=== PATIENT | male | born 1950 | race Caucasian/White ===

== ENCOUNTER 2017-07-30 09:30 | Inpatient (IN) | payer MEDICARE, OTHER ==
[~2017-07-30] VITALS: Ht 177.8 cm; Wt 106.5 kg
[2017-07-30] VITALS (9 sets, daily range): BP systolic 145–186; BP diastolic 66–90; PULSE 50–66; RESP 12–24; TEMP 98–98.3; O2SAT 94–99
[2017-07-30] MEDS ORDERED: APIX2.5T PO (09:45)
[2017-07-30] MEDS ORDERED: COEN1CAP PO (09:45)
[2017-07-30] MEDS ORDERED: ROSU1TAB6 PO (09:45)
[2017-07-30] MEDS ORDERED: LOSA25TA PO (09:45)
[2017-07-30] MEDS ORDERED: GLUC100013 PO (09:45)
--- NOTE | 2017-07-30 09:54 | PD ---
HPI Chief Complaint: Cardiac Complaint Time Seen by Provider: 09:50 Travel History International Travel<30 days: No Contact w/Intl Traveler<30days: No Traveled to known affect area: No History of Present Illness HPI 66-year-old man, presents emerged from complaining of tightness in his chest. Over the past couple weeks she has had worsening shortness of breath or dyspnea on exertion. Initially developed tightness in his chest. Tightness is worse this morning. He is a history of lymphoma several years ago. During his lymphoma treatment he developed a DVT, and then developed a second PE. He has an IVC filter and and is currently on Eliquis. Is been taking his medication regularly. Is no history of heart disease. He otherwise had been feeling 1 healthy prior to this. No recent illnesses or injuries. No other complaints. History Past Medical History Narrative Medical DVT/PE History of lymphoma Hyperlipidemia Hypertension Social History Alcohol Use: Yes Tobacco Use: No Allergies-Medications (Allergen,Severity, Reaction): Coded Allergies: No Known Allergies (Unverified , 07/30/17) Reported Meds & Prescriptions Reported Meds & Active Scripts Active Reported Co Q-10 (Coenzyme Q10 (Ubidecarenone)) 100 Mg Cap 100 Mg PO DAILY Glucosamine (Glucosamine Sulfate) 1,000 Mg Cap 2,000 Mg PO DAILY Losartan (Losartan Potassium) 25 Mg Tab 5 Mg PO DAILY Rosuvastatin (Rosuvastatin Calcium) 10 Mg Tab 10 Mg PO HS Eliquis (Apixaban) 2.5 Mg Tab 2.5 Mg PO BID Review of Systems Except as stated in HPI: all other systems reviewed are Neg Physical Exam Narrative GENERAL: Well-appearing 58-year-old man, no acute distress. SKIN: Focused skin assessment warm/dry. HEAD: Atraumatic. Normocephalic. EYES: Pupils equal and round. No scleral icterus. No injection or drainage. ENT: No nasal bleeding or discharge. Mucous membranes pink and moist. NECK: Trachea midline. No JVD. CARDIOVASCULAR: Regular rate and rhythm. No murmur appreciated. RESPIRATORY: No accessory muscle use. Clear to auscultation. Breath sounds equal bilaterally. GASTROINTESTINAL: Abdomen soft, non-tender, nondistended. Hepatic and splenic margins not palpable. MUSCULOSKELETAL: No obvious deformities. No clubbing. No cyanosis. No edema. NEUROLOGICAL: Awake and alert. No obvious cranial nerve deficits. Motor grossly within normal limits. Normal speech. PSYCHIATRIC: Appropriate mood and affect; insight and judgment normal. Data Data Last Documented VS Vital Signs Date Time Temp Pulse Resp B/P (MAP) Pulse Ox O2 Delivery O2 Flow Rate FiO2 07/30/17 09:39 98.3 65 19 186/78 (114) 94 Orders Orders Electrocardiogram (07/30/17 09:48) Complete Blood Count With Diff (07/30/17 09:48) Comprehensive Metabolic Panel (07/30/17 09:48) D-Dimer (07/30/17 09:48) Magnesium (Mg) (07/30/17 09:48) Prothrombin Time / Inr (Pt) (07/30/17:48) Act Partial Throm Time (Ptt) (07/30/17 09:48) Troponin I (07/30/17 09:48) Ecg Monitoring (07/30/17 09:48) Iv Access Insert/Monitor (07/30/17 09:48) Oximetry (07/30/17 09:48) Oxygen Administration (07/30/17 09:48) Sodium Chloride 0.9% Flush (Ns Flush) (07/30/17 10:00) Chest, Pa & Lat (07/30/17 09:48) Aspirin Chew (Aspirin Chew) (07/30/17 10:00) MDM Medical Decision Making Medical Screen Exam Complete: Yes Emergency Medical Condition: Yes Differential Diagnosis DVT, PE, ACS, chest wall pain, other Narrative Course Medical decision making 66-year-old man, distant exertion with chest tightness, suspicious for ACS, history of DVT PE. Will check labs including d-dimer, check EKG chest x-ray aspirin, recommend admission to the chest pain center for further evaluation. Patient seen in triage, will be taken to the back for further evaluation. Les Salmeron MD Jul 30, 2017 09:54
[2017-07-30] MEDS ORDERED: ASPIRIN 81 MG CHEW TAB CHEW SCH (10:00)
[2017-07-30] MEDS ORDERED: SODIUM CHLORIDE 0.9% FLUSH 10 ML FLUSH IVF PRN (10:00)
[2017-07-30 10:42] LABS: AUTOMATED NEUTROPHIL # 3.5 TH/MM3 (1.8-7.7); BASOPHIL # 0.1 TH/MM3 (0-0.2); EOSINOPHIL # 0.1 TH/MM3 (0-0.4); EOSINOPHIL % 1.7 % (0.0-4.0); HEMATOCRIT 39.3 % (39.0-51.0); HEMOGLOBIN 13.6 GM/DL (13.0-17.0); LYMPH % 20.7 % (9.0-44.0); LYMPHOCYTE # 1.1 TH/MM3 (1.0-4.8); MEAN CELL VOLUME 88.4 FL (80.0-100.0); MEAN CORPUSCULAR HEMOGLOBIN 30.6 PG (27.0-34.0); MEAN CORPUSCULAR HGB CONC 34.6 % (32.0-36.0); MEAN PLATELET VOLUME 8.2 FL (7.0-11.0); MONO % 10.6 % (0.0-8.0); MONOCYTE # 0.6 TH/MM3 (0-0.9); PLATELET COUNT 139 TH/MM3 (150-450); RED BLOOD COUNT 4.45 MIL/MM3 (4.50-5.90); RED CELL DISTRIBUTION WIDTH 14.1 % (11.6-17.2); WHITE BLOOD COUNT 5.3 TH/MM3 (4.0-11.0)
--- NOTE | 2017-07-30 10:50 | RADRPT ---
EXAM DATE/TIME: 07/30/2017 10:34 [facility] COMPARISON: No previous studies available for comparison. INDICATIONS : Midsternal chest pains, MEDICAL HISTORY : Lymphoma. SURGICAL HISTORY : None. ENCOUNTER: Initial ACUITY: 1 day PAIN SCORE: 5/10 LOCATION: Bilateral chest FINDINGS: PA and lateral views of the chest demonstrate the lungs to be symmetrically aerated without evidence of mass, infiltrate or effusion. The cardiomediastinal contours are unremarkable. Osseous structure s are intact. CONCLUSION: No acute disease. Rodo Hansen MD on July 30, 2017 at 10:48 Board Certified Radiologist. This report was verified electronically.
[2017-07-30 10:53] LABS: D-DIMER 0.32 MG/L FEU (0.00-0.50); INTERNATIONAL NORMALIZED RATIO 1.1 RATIO; PROTHROMBIN TIME - PATIENT 10.7 SEC (9.8-11.6)
[2017-07-30 11:02] LABS: ALBUMIN 4.1 GM/DL (3.4-5.0); AST (GOT) 35 U/L (15-37); BICARBONATE 22.5 MEQ/L (21.0-32.0); BLOOD UREA NITROGEN 16 MG/DL (7-18); CALCIUM 9.1 MG/DL (8.5-10.1); CHLORIDE 109 MEQ/L (98-107); CREATININE 0.91 MG/DL (0.60-1.30); GLOMERULAR FILTRATION RATE 83 ML/MIN (>89); GLUCOSE,RANDOM 115 MG/DL (74-106); MAGNESIUM 2.2 MG/DL (1.5-2.5); SODIUM (NA) 139 MEQ/L (136-145)
[2017-07-30 11:10] LABS: ALKALINE PHOSPHATASE 92 U/L (45-117); ALT (GPT) 52 U/L (12-78); TOTAL BILIRUBIN ADULT 0.6 MG/DL (0.2-1.0); TOTAL PROTEIN 7.7 GM/DL (6.4-8.2); TROPONIN I 0.11 NG/ML (0.02-0.05)
[2017-07-30] MEDS ORDERED: HEPARIN-D5W 25,000 U/250 ML 250 ML IV PRN (11:45)
[2017-07-30] MEDS ORDERED: HEPARIN SODIUM - IV 10,000 UNITS/10 ML VIAL IV ONE (11:45)
--- NOTE | 2017-07-30 12:01 | PD ---
Physical Exam Date Seen by Provider: Jul 30, 2017 Time Seen by Provider: 11:58 Narrative 66-year-old male came to the emergency room with his with progressive chest pain and shortness of breath on exertion. Patient says this has been going on for past 2 weeks or so. At first this evolved doing gardening work which brought on the pain and shortness of breath. Today it was just doing normal house chores which she has done routinely for a very long time without any problems. He describes the pain as a pressure/tightness on the left side of his chest without radiation. It was more intense today as well. Currently he is chest pain-free. Patient takes Eliquis for history of DVT and PE. He was seen in the waiting room and workup initiated in the waiting room. Blood work is back and shows elevation of the troponin. Patient is already on blood thinners and hence has not been started on any other the present time. Vital signs are stable. He needs to be admitted and I discussed this with him. Patient understands. Awaiting for the hospitalist to call back. Data Data Last Documented VS Vital Signs Date Time Temp Pulse Resp B/P (MAP) Pulse Ox O2 Delivery O2 Flow Rate FiO2 07/30/17 11:57 54 14 176/85 (115) 97 Room Air 07/30/17 09:39 98.3 Orders Orders Electrocardiogram (07/30/17 09:48) Complete Blood Count With Diff (07/30/17 09:48) Comprehensive Metabolic Panel (07/30/17 09:48) D-Dimer (07/30/17 09:48) Magnesium (Mg) (07/30/17 09:48) Prothrombin Time / Inr (Pt) (07/30/17 09:48) Act Partial Throm Time (Ptt) (07/30/17 09:48) Troponin I (07/30/17 09:48) Ecg Monitoring (07/30/17 09:48) Iv Access Insert/Monitor (07/30/17 09:48) Oximetry (07/30/17 09:48) Oxygen Administration (07/30/17 09:48) Sodium Chloride 0.9% Flush (Ns Flush) (07/30/17 10:00) Chest, Pa & Lat (07/30/17 09:48) Aspirin Chew (Aspirin Chew) (07/30/17 10:00) Heparin Inj (Heparin Inj) (07/30/17 11:45) Heparin Inj (Heparin Inj) (07/30/17 17:45) Heparin Inj (Heparin Inj) (07/30/17 17:45) Admit Order (Ed Use Only) (07/30/17 12:06) Labs Laboratory Tests Test 07/30/17 09:50 07/30/17 09:54 Prothrombin Time 10.7 SEC Prothromb Time International Ratio 1.1 RATIO Activated Partial Thromboplast Time 26.6 SEC D-Dimer Quantitative (PE/DVT) 0.32 MG/L FEU White Blood Count 5.3 TH/MM3 Red Blood Count 4.45 MIL/MM3 Hemoglobin 13.6 GM/DL Hematocrit 39.3 % Mean Corpuscular Volume 88.4 FL Mean Corpuscular Hemoglobin 30.6 PG Mean Corpuscular Hemoglobin Concent 34.6 % Red Cell Distribution Width 14.1 % Platelet Count 139 TH/MM3 Mean Platelet Volume 8.2 FL Neutrophils (%) (Auto) 66.0 % Lymphocytes (%) (Auto) 20.7 % Monocytes (%) (Auto) 10.6 % Eosinophils (%) (Auto) 1.7 % Basophils (%) (Auto) 1.0 % Neutrophils # (Auto) 3.5 TH/MM3 Lymphocytes # (Auto) 1.1 TH/MM3 Monocytes # (Auto) 0.6 TH/MM3 Eosinophils # (Auto) 0.1 TH/MM3 Basophils # (Auto) 0.1 TH/MM3 CBC Comment DIFF FINAL Differential Comment Blood Urea Nitrogen 16 MG/DL Creatinine 0.91 MG/DL Random Glucose 115 MG/DL Total Protein 7.7 GM/DL Albumin 4.1 GM/DL Calcium Level 9.1 MG/DL Magnesium Level 2.2 MG/DL Alkaline Phosphatase 92 U/L Aspartate Amino Transf (AST/SGOT) 35 U/L Alanine Aminotransferase (ALT/SGPT) 52 U/L Total Bilirubin 0.6 MG/DL Sodium Level 139 MEQ/L Potassium Level 4.5 MEQ/L Chloride Level 109 MEQ/L Carbon Dioxide Level 22.5 MEQ/L Anion Gap 8 MEQ/L Estimat Glomerular Filtration Rate 83 ML/MIN Troponin I 0.11 NG/ML [facility] Supervised Visit with JHONATHAN: No Interpretation(s) Twelve-lead EKG was reviewed by me. Normal sinus rhythm, normal axis, nonspecific ST-T wave changes. Heart rate of 74 bpm. Diagnosis Primary Impression: Non-STEMI (non-ST elevated myocardial infarction) Admitting Information Admitting Physician Requests: it Zoey Parr MD Jul 30, 2017 12:01
[2017-07-30] MEDS ORDERED: MORPHINE SULFATE 4 MG/ML INJ IV PUSH PRN (12:30)
[2017-07-30] MEDS ORDERED: ACETAMINOPHEN 325 MG TAB PO PRN (12:30)
[2017-07-30] MEDS ORDERED: DOCUSATE SODIUM 100 MG CAP PO PRN (12:30)
[2017-07-30] MEDS ORDERED: NITROGLYCERIN 0.4 MG SL 25 TABS/BTL SL PRN (12:30)
[2017-07-30 13:14] LABS: CHOLESTEROL/ HDL RATIO 4.13 RATIO
[2017-07-30] MEDS: METOPROLOL TARTRATE 25 MG TAB PO SCH (15:42)
[2017-07-30 15:50] LABS: TROPONIN I 0.15 NG/ML (0.02-0.05)
--- NOTE | 2017-07-30 16:47 | EKG ---
Date Performed: 07/30/2017 Time Performed: 09:58:16 PTAGE: 66 years EKG: Sinus rhythm NORMAL ECG NO PREVIOUS TRACING DOCTOR: Matt Anthony Interpretating Date/Time 07/30/2017 16:44:13
[2017-07-30] MEDS ORDERED: HEPARIN SODIUM - IV 10,000 UNITS/10 ML VIAL IV PRN ×2 (17:45)
--- NOTE | 2017-07-30 20:29 | HHI.HP ---
[facility] Primary Care Physician Yunior Abdul MD Admission Diagnosis non-STEMI Diagnoses: Chief Complaint: Chest pain Travel History International Travel<30 Days: No Contact w/Intl Traveler <30 Da: No Traveled to Known Affected Are: No History of Present Illness 66 years old male with past medical history of hypertension hyperlipidemia DVT PE 10 years ago and non-Hodgkin lymphoma presented to the ED with chest pain started yesterday and got worse and today 4 out of 10 squeezing nature no transfer no short of breath dizziness or diaphoresis it last for 4 minutes patient did not take nitroglycerin, in ED he was started on aspirin he was found to have elevated troponin 0.11 EKG showed normal sinus rhythm normal axis no ST changes heart rate 74. Patient currently having no chest pain, second set of cardiac enzyme increased to 0.15, patient took his elliquis in a.m. we' ll hold on heparin drip and will give it after 12 hours, cardiology consulted I was told the plan for heart catheter in a.m. Other than chest anal patient denied any other complaint, he denied orthopnea PND or leg swelling Review of Systems All systems reviewed and was positive for what is mentioned in history of present illness otherwise negative Past Family Social History Past Medical History Hypertension Hyperlipidemia History of DVT PE 10 years ago Non-Hodgkin lymphoma status post chemotherapy Past Surgical History IVC filter Cataract Melanoma excision of the nose IP port Allergies: Coded Allergies: No Known Allergies (Unverified , 07/30/17) Family History Mother had CHF and A. fib Social History Quit smoking 40 years ago he drinks alcohol daily including beer no drug abuse Physical Exam Vital Signs Vital Signs Date Time Temp Pulse Resp B/P (MAP) Pulse Ox O2 Delivery O2 Flow Rate FiO2 07/30/17 20:13 64 17 183/84 (117) 95 07/30/17 14:45 07/30/17 14:29 98.0 56 16 165/90 (115) 96 07/30/17 14:00 54 24 145/68 (93) 96 Room Air 07/30/17 13:30 52 16 145/66 (92) 96 Room Air 07/30/17 13:00 50 12 170/78 (108) 96 Room Air 07/30/17 11:57 54 14 176/85 (115) 97 Room Air 07/30/17 09:56 99 07/30/17 09:56 99 07/30/17 09:39 98.3 65 19 186/78 (114) 94 07/30/17 09:37 98.3 66 16 186/78 (114) 95 Physical Exam GENERAL: This is a well-nourished, well-developed patient, in no apparent distress. SKIN: No rashes, warm and dry HEAD: Atraumatic. Normocephalic. EYES: Pupils equal round and reactive. Extraocular motions intact. No scleral icterus. ENT: Nose without bleeding, or drainage, Airway patent. NECK: Trachea midline. Supple CARDIOVASCULAR: Regular rate and rhythm without murmurs, gallops, or rubs. RESPIRATORY: Fair air entry bilaterally. No wheezes, rales, or rhonchi. GASTROINTESTINAL: Abdomen soft, non-tender, nondistended. Positive bowel sounds MUSCULOSKELETAL: Extremities without clubbing, cyanosis, or edema. Pedal pulses appreciated NEUROLOGICAL: Awake and alert. Moves all extremity. Normal speech.no focal neurological deficit Laboratory Laboratory Tests Test 07/30/17 09:50 07/30/17 09:54 07/30/17 12:42 07/30/17 14:43 Prothrombin Time 10.7 Prothromb Time International Ratio 1.1 Activated Partial Thromboplast Time 26.6 25.7 D-Dimer Quantitative (PE/DVT) 0.32 White Blood Count 5.3 Red Blood Count 4.45 Hemoglobin 13.6 Hematocrit 39.3 Mean Corpuscular Volume 88.4 Mean Corpuscular Hemoglobin 30.6 Mean Corpuscular Hemoglobin Concent 34.6 Red Cell Distribution Width 14.1 Platelet Count 139 Mean Platelet Volume 8.2 Neutrophils (%) (Auto) 66.0 Lymphocytes (%) (Auto) 20.7 Monocytes (%) (Auto) 10.6 Eosinophils (%) (Auto) 1.7 Basophils (%) (Auto) 1.0 Neutrophils # (Auto) 3.5 Lymphocytes # (Auto) 1.1 Monocytes # (Auto) 0.6 Eosinophils # (Auto) 0.1 Basophils # (Auto) 0.1 CBC Comment DIFF FINAL Differential Comment Blood Urea Nitrogen 16 Creatinine 0.91 Random Glucose 115 Total Protein 7.7 Albumin 4.1 Calcium Level 9.1 Magnesium Level 2.2 Alkaline Phosphatase 92 Aspartate Amino Transf (AST/SGOT) 35 Alanine Aminotransferase (ALT/SGPT) 52 Total Bilirubin 0.6 Sodium Level 139 Potassium Level 4.5 Chloride Level 109 Carbon Dioxide Level 22.5 Anion Gap 8 Estimat Glomerular Filtration Rate 83 Troponin I 0.11 0.15 Triglycerides Level 85 Cholesterol Level 157 LDL Cholesterol 102 HDL Cholesterol 38.0 Cholesterol/HDL Ratio 4.13 Total Creatine Kinase 133 Creatine Kinase MB 3.0 Result Diagram: 07/30/1754 07/30/17953 Imaging Last Impressions Chest X-Ray 07/30/17947 Signed Impressions: Service Date/Time: Sunday, July 30, 2017 10:34 - CONCLUSION: No acute disease. MD Caty Talavera VTE Risk Assessment Caty VTE Risk Assessment: Mod/High Risk (score >= 2) Caprini Risk Assessment Model Point Value = 1 Point Value = 2 Point Value = 3 Point Value = 5 Age 41-60 Minor surgery BMI > 25 kg/m2 Swollen legs Varicose veins or History of unexplained or recurrent spontaneous Oral contraceptives or hormone replacement Sepsis (< 1 month) Serious lung disease, including pneumonia (< 1 month) Abnormal pulmonary function Acute myocardial infarction Congestive heart failure (< 1 month) History of inflammatory bowel disease Medical patient at bed rest Age 61-74 Arthroscopic surgery Major open surgery (> 45 min) Laparoscopic surgery (> 45 min) Malignancy Confined to bed (> 72 hours) Immobilizing plaster cast Central venous access Age >= 75 History of VTE Family history of VTE Factor V Leiden Prothrombin [id number] Lupus anticoagulant Anticardiolipin antibodies Elevated serum homocysteine Heparin-induced thrombocytopenia Other congenital or acquired thrombophilia Stroke (< 1 month) Elective arthroplasty Hip, pelvis, or leg fracture Acute spinal cord injury (< 1 month) Prophylaxis Regimen Total Risk Factor Score Risk Level Prophylaxis Regimen 0-1 Low Early ambulation 2 Moderate Order ONE of the following: *Sequential Compression Device (SCD) *Heparin 5000 units SQ BID 3-4 Higher Order ONE of the following medications: *Heparin 5000 units SQ TID *Enoxaparin/Lovenox 40 mg SQ daily (WT < 150 kg, CrCl > 30 mL/min) *Enoxaparin/Lovenox 30 mg SQ daily (WT < 150 kg, CrCl > 10-29 mL/min) *Enoxaparin/Lovenox 30 mg SQ BID (WT < 150 kg, CrCl > 30 mL/min) AND/OR *Sequential Compression Device (SCD) 5 or more Highest Order ONE of the following medications: *Heparin 5000 units SQ TID (Preferred with Epidurals) *Enoxaparin/Lovenox 40 mg SQ daily (WT < 150 kg, CrCl > 30 mL/min) *Enoxaparin/Lovenox 30 mg SQ daily (WT < 150 kg, CrCl > 10-29 mL/min) *Enoxaparin/Lovenox 30 mg SQ BID (WT < 150 kg, CrCl > 30 mL/min) AND *Sequential Compression Device (SCD) Assessment and Plan Assessment and Plan 66 years old male with history of hypertension hyperlipidemia DVT and PE in the past came with Worsening chest anal short of breath rule out ACS Elevated troponin Hypertension uncontrolled blood pressure History of DVT and PE 10 years ago on elliquis Hyperlipidemia on rosuvastatin History of non-Hodgkin lymphoma in remission status post chemotherapy DVT prophylaxis patient on elliquis Plan: Admit to inpatient Aspirin, morphine, O2 Cycle cardiac enzymes first set 0.11, next set 0.15 Personally reviewed EKG Continue losartan and rosuvastatin Check FPL Vasotec for as needed blood pressure coverage I will hold on giving Lopressor due to heart rate in the 50s currently patient was given 1 dose 12.5 earlier today at admission Consult cardiology appreciated their help, patient was told land for heart catheter possibly tomorrow Heparin drip per protocol 12 hours after the time when patient took his Eliquis this morning so around (I discussed with the nurse and explained the reason for that) she will verify that and confirm it with cardiology Discussed Condition With Patient and ED physician Physician Certification 2 Midnight Certification Type: Admission for Inpatient Services Order for Inpatient Services The services are ordered in accordance with Medicare regulations or non- Medicare payer requirements, as applicable. In the case of services not specified as inpatient-only, they are appropriately provided as inpatient services in accordance with the 2-midnight benchmark. Estimated LOS (days): 2 days is the estimated time the patient will need to remain in the hospital, assuming treatment plan goals are met and no additional complications. Post-Hospital Plan: Not yet determined Randee Najera MD Jul 30, 2017 20:29
[2017-07-30] MEDS ORDERED: ENALAPRILAT 1.25 MG/ML VIAL IV PUSH PRN (20:30)
[2017-07-30] MEDS: ATORVASTATIN 20 MG TAB PO SCH (20:53)
[2017-07-30] MEDS ORDERED: HEPARIN SODIUM - IV 10,000 UNITS/10 ML VIAL IV PUSH PRN (22:00)
[2017-07-30] MEDS: HEPARIN 25,000 UNITS-D5W 250 ML - PREMIX IV PRN (22:32)
--- NOTE | 2017-07-30 23:24 | MB ---
cc: Patrick Briceno DO DATE: 07/30/2017 REASON FOR CONSULTATION: Chest pain, elevated troponin. HISTORY OF PRESENT ILLNESS: Leonardo Bowie is a pleasant 66-year-old male who presented to [facility] Emergency Room due to chest pain and shortness of breath. He has had this on and off over the past month or two and was supposed to see my partner, Dr. Morgan in the office within the next week or two. He states that the pain started getting worse and was 4/10 and squeezing in nature and his shortness of breath was more exacerbated with activity. Because of this, he decided he should come to the emergency room. He was found to have an elevated troponin. In seeing him, he is currently chest pain free without shortness of breath. PAST MEDICAL HISTORY: 1. Hypertension. 2. Hyperlipidemia. 3. History of deep vein thrombosis/pulmonary embolism. 4. Non-Hodgkin lymphoma, status post chemotherapy. PAST SURGICAL HISTORY: 1. Pete IVC filter placement. 2. Cataracts. 3. Melanoma excision of the nose. ALLERGIES: NO KNOWN DRUG ALLERGIES. MEDICATIONS: 1. Eliquis 2.5 mg b.i.d. 2. Crestor 10 mg every night. 3. Losartan 100 mg daily. FAMILY HISTORY: Mother had congestive heart failure and atrial fibrillation. SOCIAL HISTORY: The patient previously smoked but quit ____ years ago. He drinks beer daily, but does not binge drink. He denies drug abuse. REVIEW OF SYSTEMS: Fourteen systems were reviewed including osteopathic. Pertinent positives and negatives above, otherwise negative. PHYSICAL EXAMINATION: VITAL SIGNS: Temperature 98.0, heart rate 56, blood pressure 165/90, respirations 16, pulse oximetry 96% on room air. GENERAL: The patient appears well in no acute distress. Alert, awake and oriented x 3. HEENT: Extraocular muscles intact. Mucous membranes moist. NECK: Supple. No JVD at 45 degrees. No carotid bruits heard bilaterally. Carotid upstroke is brisk in nature. HEART: Regular rate and rhythm. Positive first and second heart sounds without any murmurs, gallops or rubs. LUNGS: Clear to auscultation bilaterally. No wheezes, rales or rhonchi. ABDOMEN: Soft, nontender, nondistended. No organomegaly noted. EXTREMITIES: Show no clubbing, cyanosis or edema. Femoral and distal pulses are intact bilaterally. NEUROLOGIC: No focal deficits. SKIN: Warm, dry and intact. OSTEOPATHIC: No kyphoscoliosis, lordosis or paraspinal tender points. LABORATORY DATA: Hemoglobin 13.6, hematocrit 39.3, platelets 139. Potassium 4.5, BUN 16, creatinine 0.91. Troponin 0.15. Electrocardiogram (07/30/2017 at 18:58) sinus bradycardia. No acute ST-T wave changes. ASSESSMENT AND PLAN: 1. Non-ST elevation myocardial infarction. 2. Chest pain and shortness of breath concerning for coronary insufficiency. 3. Hypertension. 4. History of deep vein thrombosis/pulmonary embolism on Eliquis with inferior vena cava filter placement. 5. Hyperlipidemia. 6. History of non-Hodgkin lymphoma in remission, status post chemotherapy. RECOMMENDATIONS: 1. Mr. Bowie presented with typical sounding angina and has an elevated troponin. Because of this he will be recommended cardiac catheterization. 2. As he took his Eliquis this morning I feel that it would be better to wait until the morning, so that he is 24 hours out from taking his Eliquis to decrease his bleeding risk. 3. He will be started on a heparin drip. 4. We will check a 2-D echo to look at his overall left ventricular function, cardiac structure and possible valvulopathies. 5. He will be n.p.o. after midnight for planned cardiac catheterization in the morning. 6. Risks, benefits and alternatives were explained to him and he consents to such. 7. Further recommendations will be made based on the hospital course. Thank you for allowing me to see Leonardo Bowie. If there are any questions, please do not hesitate to call. Patrick Briceno, DO VGP/rt , 11:00 PM , 11:23 PM
[2017-07-30 23:42] LABS: TROPONIN I 0.14 NG/ML (0.02-0.05)
[2017-07-31] VITALS (9 sets, daily range): BP systolic 104–140; BP diastolic 54–76; PULSE 47–68; RESP 17–18; TEMP 96.8–98.2; O2SAT 93–95
[2017-07-31] MEDS ORDERED: INSULIN HUMAN REGULAR 1,000 UNITS/10 ML VIAL SQ PRN (01:45)
[2017-07-31] MEDS ORDERED: CHLORHEXIDINE GLUCONATE 2 % 1 PACK (2 CLOTHS) TOPICAL PRN (01:45)
[2017-07-31] MEDS ORDERED: METOPROLOL TARTRATE 25 MG TAB PO PRN (01:45)
[2017-07-31] MEDS ORDERED: POVIDONE IODINE 5% (ANTISEPSIS KIT) 4 APPLICATIONS EACH NARE PRN (01:45)
[2017-07-31] MEDS ORDERED: LACTATED RINGER'S 1000 ML IV PRN (01:45)
[2017-07-31] MEDS ORDERED: SODIUM CHLORID 0.9% 500 ML IV PRN (01:45)
[2017-07-31 05:19] LABS: BICARBONATE 27.6 MEQ/L (21.0-32.0); CALCIUM 8.5 MG/DL (8.5-10.1); CREATININE 0.99 MG/DL (0.60-1.30)
[2017-07-31 05:23] LABS: TROPONIN I 0.12 NG/ML (0.02-0.05)
[2017-07-31] MEDS: LOSARTAN 50 MG TAB PO SCH (08:19)
[2017-07-31] MEDS ORDERED: ASPIRIN EC 325 MG TABEC PO SCH (09:00)
--- NOTE | 2017-07-31 09:12 | HHI.PR ---
Subjective Remarks F/U MO. Doing ok no complaints denies chest pain and shortness of breath. Discussed with patient and , risk factor modification as well as risks of bleeding with anticoagulation and antiplatelet therapy. Discussed with RN Objective Vitals Vital Signs Date Time Temp Pulse Resp B/P (MAP) Pulse Ox O2 Delivery O2 Flow Rate FiO2 07/31/17 08:19 96.8 68 18 121/67 (85) 94 07/31/17 03:45 97.9 62 18 132/67 (88) 94 07/31/17 01:08 47 07/31/17 00:12 98.2 54 17 104/54 (71) 95 07/30/17 20:13 64 17 183/84 (117) 95 07/30/17 14:45 07/30/17 14:29 98.0 56 16 165/90 (115) 96 07/30/17 14:00 54 24 145/68 (93) 96 Room Air 07/30/17 13:30 52 16 145/66 (92) 96 Room Air 07/30/17 13:00 50 12 170/78 (108) 96 Room Air 07/30/17 11:57 54 14 176/85 (115) 97 Room Air 07/30/17 09:56 99 07/30/17 09:56 99 07/30/17 09:39 98.3 65 19 186/78 (114) 94 07/30/17 09:37 98.3 66 16 186/78 (114) 95 I/O 07/30/17 07/30/17 07/30/17 07/31/17 07/31/17 07/31/17 07:00 15:00 23:00 07:00 15:00 23:00 Intake Total 960 ml Balance 960 ml Intake Oral 960 ml # Voids 3 # Bowel Movements 1 Result Diagram: 07/30/17 0954 07/31/17 0443 Imaging Last Impressions Chest X-Ray 07/30/17 0948 Signed Impressions: Service Date/Time: Sunday, July 30, 2017 10:34 - CONCLUSION: No acute disease. Rodo Hansen MD Objective Remarks GENERAL: This is a well-nourished, well-developed patient, in no apparent distress. SKIN: No rashes, warm and dry CARDIOVASCULAR: Regular rate and rhythm without murmurs, gallops, or rubs. RESPIRATORY: Fair air entry bilaterally. No wheezes, rales, or rhonchi. GASTROINTESTINAL: Abdomen soft, non-tender, nondistended. Positive bowel sounds MUSCULOSKELETAL: Extremities without clubbing, cyanosis, or edema. Pedal pulses appreciated NEUROLOGICAL: Awake and alert. Moves all extremity. Normal speech.no focal neurological deficit Procedures For cardiac catheterization A/P Problem List: (1) Non-STEMI (non-ST elevated myocardial infarction) ICD Code: I21.4 - Non-ST elevation (NSTEMI) myocardial infarction Status: Acute Assessment and Plan 66 years old male with history of hypertension, hyperlipidemia and Hx of DVT and PE came with worsening chest pain and elevated troponin NSTEMI. Patient is pain-free. Continue aspirin, Lopressor, statin and heparin drip for cardiac catheterization today. Hypertension. Improved continue ARB and Lopressor Sinus bradycardia. Improved we will continue to monitor History of DVT and PE 10 years ago on elliquis which is currently on hold because of heparin drip Hyperlipidemia on rosuvastatin. LDL 102. Will need higher dose pending cardiac catheterization History of non-Hodgkin lymphoma in remission status post chemotherapy. Outpatient follow-up DVT prophylaxis patient on heparin drip Discharge Planning Possible discharge today or in the morning Zane Dawson MD Jul 31, 2017 09:12
--- NOTE | 2017-07-31 09:13 | HHI.DCPOC ---
Discharge Care Plan Diagnosis: (1) Non-STEMI (non-ST elevated myocardial infarction) Your Health Problems Are: Difficulty with ADL Exercise Tolerance Goals to Promote Your Health * To prevent worsening of your condition and complications * To maintain your health at the optimal level Directions to Meet Your Goals Take your medications as prescribed Follow your dietary instruction Follow activity as directed Keep your appointments as scheduled Take your immunizations and boosters as scheduled If your symptoms worsen call your PCP, if no PCP go to Urgent Care Center or Emergency Room Smoking is Dangerous to Your Health. Avoid second hand smoke Call the 24-hour hour crisis hotline for domestic abuse at Zane Dawson MD Jul 31, 2017 09:13
[2017-07-31] MEDS: METOPROLOL TARTRATE 25 MG TAB PO SCH ×2 (10:06→21:44)
--- NOTE | 2017-07-31 12:30 | EKG ---
Date Performed: 07/30/2017 Time Performed: 18:58:08 PTAGE: 66 years EKG: SINUS BRADYCARDIA BORDERLINE ECG PREVIOUS TRACING : 07/30/2017 09.58 Since the previous tracing, no significant change noted DOCTOR: Farhad Castanon Interpretating Date/Time 07/31/2017 12:30:04
[2017-07-31] MEDS ORDERED: HEPARIN-NS/PF FLUSH BAG 2,000 ML IV FLUSH ONE (13:58)
[2017-07-31] MEDS ORDERED: VERAPAMIL HCL 5 MG/2 ML VIAL ONE (13:59)
[2017-07-31] MEDS ORDERED: HEPARIN SODIUM - IV 10,000 UNITS/10 ML VIAL ONE (13:59)
[2017-07-31] MEDS ORDERED: NITROGLYCERIN INJ 5 ML ONE (14:00)
[2017-07-31] MEDS ORDERED: MIDAZOLAM HCL 2 MG/2 ML VIAL ONE (14:32)
[2017-07-31] MEDS ORDERED: oxyCODONE/ACETAMINOPHEN 5 MG/325 MG TAB PO PRN (15:00)
[2017-07-31] MEDS ORDERED: ONDANSETRON HCL 4 MG/2 ML VIAL IVP PRN (15:00)
--- NOTE | 2017-07-31 15:13 | CATHPROC ---
[place] HIS Report Study Information Study Number Admission Scheduled Start Study Start [id number] Jul 30 2017 8:18PM 07/30/2017 Jul 31 2017 2:01PM [place] Service Cardiac Catheterization Admit Source Facility Department Emergency department [facility] - [employer] Dispatcher Physician and Clinical Staff Initial Patrick Koehler Director Software Development Rick Morales RN Director Software Development Cinda Anton RN Other cathlab, cathlab Recorder Angeles Stephen,PROJECT MANAGEMENT MANAGER TECH2 Scrub Renetta Vega ,RT(R) Procedures Performed Procedure Location (Site) Vessel Name Coronary Angiograms RCA Right Coronary L Heart Cath Wire insertion Fem Art (right) Femoral Art Wire insertion Radial (right) Radial Art. Equipment Time Gang Vibrator Operator Description Size Mfg Part Number Used/Scraped TRANSDUCER, TRUWAVE [id number] 14:08 Axentra IGNACIO * Used W/STOCKCOCK *[id number] *[id number] 14:08 Superplayer PACK, CCL CUSTOM * Used *[id number] 14:08 Superplayer SUPPORT, ARTERIAL ADULT [id number] *[id number] Used [id number] 14:20 MEDTRONIC JR 4.0 DXTERITY CATHETER FR 5 Used *[id number] BAND, RADIAL COMPRESSION TR [id number] 14:47 [employer] MEDICAL 29CM Used LARGE 29 *[id number] 14:08 [employer] WIRE, EXCHANGE 260CM 3MMJ 260CM Used *[id number] 14:08 NAMIC MANIFOLD, 4 PORT * Used *[id number] 14:08 NYCOMED OMNIPAQUE, 350 MG, 150ML 150ML [id number] Used [id number] 14:08 [facility] BLANKET,WARM AIR CCL * Used *[id number] SHEATH, FR6 TRANSRADIAL [id number] 14:08 [employer] FR 6 Used SLENDER 10CM *[id number] Equipment Model, Serial, Lot Number and Expiration Data Description Model Number Serial Number Lot Number Expiration Date JR 4.0 DXTERITY CATHETER [id number] 02-13-2020 History: Allergies Allergy Reaction No Known Allergies History: Risk Factors Family History of Hypertension Dyslipidemia Previous [place] Previous Heart Failure Premature CAD Yes Yes No No No Prior Valve Prior PCI Prior CABG Surgery No No No Cerebrovascular Peripheral Artery Chronic Lung On Dialysis Diabetes Disease Disease Disease No No No No No History: Stress Tests Stress or Imaging Studies Performed No History: Other Current Smoker Method Quit Packs a Day Years Used Pack Years No Cigarettes 40 Years Ago 2 15 30 Labs Hgb (g/dl) Hct (%) WBC (l/cumm) Platelets (thousands) 11.60-17.00 35.00-51.00 4.00-11.00 150.00-450.00 13.6 39.3 5.3 139 Glucose (mg/dl) BUN (mg/dl) Creatinine (mg/dl) BUN:Creatinine (1:x) 74.00-106.00 7.00-18.00 0.50-1.30 10.00-20.00 103 16 0.9 17.8 Na (meq/l) K (meq/l) 136.00-145.00 3.50-5.10 141 4.6 Troponin I (ng/ml) CPK (u/l) CPK-MB (ng/ML) 0.02-0.05 26.00-308.00 0.50-3.60 0.12 98 1.9 Medication Medication Total Dose (Bolus/Oral) Medication Total Dosage/Unit 1% XYLOCAINE 10 mL FENTANYL 25 mcg RADIAL COCKTAIL 5 mL (Bolus) VERSED 0.5 mg Medications (Bolus/Oral) Medication Time Given Dosage/Unit Administered By Reason FENTANYL 07/31/2017 2:31:55 PM 25 mcg AndrewRick 25 mcg FENTANYL given in lab by Rick Morales RN in Left Antecubital via Peripheral IV. Ordered by Patrick Garza 1% XYLOCAINE 07/31/2017 2:32:08 PM 10 mL Patrick Briceno 10 mL 1% XYLOCAINE given in lab by Patrick Briceno in Right Radial via Subcutaneous. Ordered by Patrick Hammond VERSED 07/31/2017 2:33:52 PM 0.5 mg AndrewRick 0.5 mg VERSED given in lab by Rick Morales RN in Left Antecubital via Peripheral IV. Ordered by Patrick Cruz RADIAL COCKTAIL 07/31/2017 2:34:34 PM 5 mL (Bolus) Andrew Rick 5 mL (Bolus) RADIAL COCKTAIL given in lab by Rick Morales RN via Radial. Using [Solution Name]. Orde red by Patrick Briceno 4300 heparin,verapamil 2.5, 200 nitro Medication (Drip) Medication Time Given Dosage/Unit Concentration/Unit Diluent (ml) Solution IV Solutions 07/31/2017 2:06:26 PM 0 mL (IV) 500 NaCl .9 IV Solutions given in lab by Cinda Anton, RN in Left Antecubital via Peripheral IV. Pump/Drip Daniel w = 20 ml/hr using NaCl .9. Ordered by Patrick Briceno Initial Case Assessment Cardiovascular HR NIBP 64 179/87 Edema Present Skin color Skin None Normal Warm Dry Circulatory - Right Pulses Dorsalis Pedis Femoral Radial 3 3 3 Scale (0,1,2,3,4,d) Circulatory - Left Pulses Dorsalis Pedis Femoral Radial 3 3 Scale (0,1,2,3,4,d) Neurological State Oriented to time-place- Alert Moves all extremities person Respiration - General Respiration Rate SpO2 (%) (B/min) 12 96 Final Case Assessment Cardiovascular HR NIBP 61 162/80 Edema Present Skin color Skin None Normal Warm Dry Circulatory - Right Pulses Dorsalis Pedis Femoral Radial 3 3 3 Scale (0,1,2,3,4,d) Circulatory - Left Pulses Dorsalis Pedis Femoral Radial 3 3 Scale (0,1,2,3,4,d) Neurological State Oriented to time-place- Alert Moves all extremities person Respiration - General Respiration Rate SpO2 (%) (B/min) 19 93 Chronological Log Time Study Chronological Log 14:01:35 Patient arrived via Bed. 14:01:36 Patient Name, D.O.B, / Armband Verified By R.N. 14:01:37 Consent signed by the physician and the patient and verified by the [employer] P[employer] Dispatcher staff. 14:01:38 Pre-op and post- op instructions given; patient acknowledges understanding of instructions. 14:01:40 Allens test performed on the right radial and ulnar artery. 14:01:41 Patient has been NPO for More than 6Hrs. 14:01:42 Skin Breakdown none per pt 14:06:19 Patient Warmer Placed on the Table. 14:06:22 Rony Prominences Protected 14:06:25 A # 20 IV was noted in the Antecubital (left). Grade = 0 IV Solutions given in lab by Cinda Anton, RN in Left Antecubital via Peripheral IV. Pump/Dr ip Flow = 20 ml/hr using 14:06:26 NaCl .9. Ordered by Patrick Briceno 14:06:29 History and physical on the chart or being dictated. Vitals capture started with the following parameters, Patient=Adult, Interval=5 min, Initial Pr qncpzo=920 mmHg, 14:08:16 Deflation Rate=5 mmHg, Cuff placed on Left Arm 14:09:01 HR=64 bpm, LNNX=820/87 mmhg, SpO2=96.0 %, Resp=12 B/min, Pain=0, Mary=8, Wang=2 Assessment: Initial Case, HR=64 BPM, DCEJ=094/87 mmhg, Edema=None, Color=Normal, Skin = Warm, D ry Right Pulses: Aman Ped=3, Femoral=3, Radial=3 14:09:35 Left Pulses: Aman Ped=3, Femoral=3 Neurological: State=Alert, Ox3, FRANCISCO Respiration: Resp=12 B/min, SpO2=96 % 14:14:39 HR=58 bpm, QOBJ=759/83 mmhg, SpO2=93.0 %, Resp=10 B/min, Pain=0, Mary=8, Wang=2 14:15:08 Reference ECG taken 14:16:38 Right Radial and groin(s) prepped with 2% chlorhexidine, and draped after a 3 min. waiting time. 14:16:54 Pressure channel 1 zeroed. 14:18:59 HR=58 bpm, RWML=396/86 mmhg, SpO2=94.0 %, Resp=12 B/min, Pain=0, Mary=8, Wang=2 14:23:56 HR=61 bpm, QIVB=137/83 mmhg, SpO2=94.0 %, Resp=15 B/min, Pain=0, Mary=8, Wang=2 14:25:58 MD responded 14:29:36 HR=58 bpm, UONY=001/81 mmhg, SpO2=94.0 %, Resp=15 B/min, Pain=0, Mary=8, Wang=2 Time Out. Correct patient, correct procedure, correct physician, power injector not loaded with contrast with surgical 14:30:27 team present. Time Out Concurred by MD and individual staff in procedure. 14:31:11 Case Start 25 mcg FENTANYL given in lab by Rick Morales RN in Left Antecubital via Peripheral IV. Ordered by Patrick Briceno 14:31:55 G. 10 mL 1% XYLOCAINE given in lab by Patrick Briceno in Right Radial via Subcutaneous. Ordere d by Janak, 14:32:08 Patrick Jiménez 14:33:40 Access site was Radial Artery. 14:33:52 0.5 mg VERSED given in lab by Rick Morales RN in Left Antecubital via Peripheral IV. Order ed by Patrick Briceno 14:34:00 HR=60 bpm, IQMK=400/82 mmhg, SpO2=91.0 %, Resp=17 B/min, Pain=0, Mary=8, Wang=2 A SHEATH, FR6 TRANSRADIAL SLENDER 10CM FR 6 was advanced into the Radial (right) using the Quentin fied Seldinger 14:34:17 technique. 5 mL (Bolus) RADIAL COCKTAIL given in lab by Rick Morales RN via Radial. Using [Solution Name] . Ordered by 14:34:34 Patrick Briceno 4300 heparin,verapamil 2.5, 200 nitro A JR 4.0 DXTERITY CATHETER FR 5 was advanced over a wire. OMNIPAQUE, 350 MG, 150ML 150ML was us ed for 14:36:14 injections. Recorded Pressure: LV, HR=73, Condition=Condition 1 14:37:18 (Left Ventricle) LV 123/8/12 Recorded Pressure: LV, Ao, HR=63, Condition=Condition 1 14:37:27 (Left Ventricle) LV 130/6/13, (Aorta) Ao 124/65/89 Recorded Pressure: Ao, HR=49, Condition=Condition 1 14:38:20 (Aorta) Ao 106/53/72 14:38:54 The RCA was injected and visualized at various angles. OMNIPAQUE, 350 MG, 150ML 150ML used . 14:39:01 HR=64 bpm, JKFO=722/79 mmhg, SpO2=91.0 %, Resp=9 B/min, Pain=0, Mary=10, Wang=2 14:39:22 A WIRE, EXCHANGE 260CM 3MMJ 260CM was inserted via Radial (right). 14:39:30 Catheter was removed A JL 3.5 INFINITI CATHETER FR 5 was advanced over a wire. OMNIPAQUE, 350 MG, 150ML 150ML was us ed for 14:40:45 injections. 14:44:29 HR=71 bpm, KOPL=461/80 mmhg, SpO2=90.0 %, Resp=15 B/min, Pain=0, Mary=8, Wang=2 14:45:49 A wire was inserted via Fem Art (right). 14:45:57 Catheter was removed 14:49:03 Case End 14:49:40 HR=61 bpm, DNRQ=709/80 mmhg, SpO2=93.0 %, Resp=19 B/min, Pain=0, Mary=10, Wang=2 Assessment: Final Case, HR=61 BPM, PHNS=087/80 mmhg, Edema=None, Color=Normal, Skin = Warm, Dry Right Pulses: Aman Ped=3, Femoral=3, Radial=3 14:51:46 Left Pulses: Aman Ped=3, Femoral=3 Neurological: State=Alert, Ox3, FRANCISCO Respiration: Resp=19 B/min, SpO2=93 % 14:52:07 Catheter(s) removed without difficulty Radial Compression Device Used. 14 mLs of air placed in BAND, RADIAL COMPRESSION TR LARGE 29 29 CM. Affected 14:52:11 hand 91 % O2 saturation. 14:52:31 No case complications noted. 14:52:33 Cine recording checked. 14:52:37 Bedside Report will be given. 14:52:44 A Left Heart Cath was performed. 14:53:30 Vitals capture stopped. 14:54:56 Patient moved to [facility] End Study - Contrast Media Used In Study Contrast Total Opened (mL) Total Used (mL) Total Wasted (mL) Omnipaque 40 40 0 End Study - Maximum Contrast Load Max Contrast Load (mL) 594.4 End Study - Radiation Exposure Fluoro Time (minutes) 1.9 End Study - Patient Disposition Complications Transferred To Telemetry Bed
[2017-07-31] MEDS ORDERED: IOHEXOL 350 MG/ML 50 ML BTL (for Cath Lab) OTHER ONE (15:39)
[2017-07-31] MEDS ORDERED: CEFAZOLIN INJ 500 MG in SODIUM CHLORIDE 0.9% IRR BTL 500 ML IRRIGATION SCH (17:00)
[2017-07-31] MEDS ORDERED: PAPAVERINE INJ 60 MG, NITROGLYCERIN INJ 100 MCG, DILTIAZEM INJ 100 MG in SODIUM CHLORID... IRRIGATION SCH (17:00)
[2017-07-31] MEDS ORDERED: CHLORHEXIDINE GLUCONATE 4% SOLN 120 ML BTL TOPICAL SCH (17:00)
[2017-07-31] MEDS ORDERED: DEXTROSE 50% IN WATER 50 ML VIAL(D50) IV PUSH PRN (17:00)
[2017-07-31] MEDS ORDERED: METOPROLOL TARTRATE 25 MG TAB PO SCH (17:00)
[2017-07-31] MEDS ORDERED: SODIUM CHLORIDE 0.9% FLUSH 10 ML FLUSH IV FLUSH PRN (17:00)
[2017-07-31] MEDS ORDERED: CEFAZOLIN INJ 2,000 MG in SODIUM CHLORIDE 0.9% INJ 100 ML IV SCH (17:00)
[2017-07-31] MEDS ORDERED: PILL SPLITTER OTHER PRN (17:15)
[2017-07-31 21:11] LABS: BILIRUBIN, URINE NEG (NEG); BLOOD, URINE NEG (NEG); GLUCOSE,URINE NEG (NEG); KETONE, URINE NEG (NEG); NITRITE,URINE NEG (NEG); URINE COLOR YELLOW (YELLW/STRAW); URINE LEUKOCYTE ESTERASE NEG (NEG)
[2017-07-31] MEDS ORDERED: NITROGLYCERIN 1000 MCG/5 ML VIAL OTHER ONE (21:15)
[2017-07-31] MEDS ORDERED: VERAPAMIL HCL 5 MG/2 ML VIAL OTHER ONE (21:15)
[2017-07-31] MEDS ORDERED: MIDAZOLAM HCL 2 MG/2 ML VIAL IV PUSH ONE (21:15)
[2017-07-31] MEDS ORDERED: HEPARIN SODIUM - IV 10,000 UNITS/10 ML VIAL OTHER ONE (21:15)
[2017-07-31] MEDS: SODIUM CHLORIDE 0.9% FLUSH 10 ML FLUSH IV FLUSH SCH (21:44)
[2017-07-31] MEDS: ATORVASTATIN 20 MG TAB PO SCH (21:44)
[2017-07-31] MEDS: HEPARIN 25,000 UNITS-D5W 250 ML - PREMIX IV PRN (21:52)
--- NOTE | 2017-07-31 22:06 | RADRPT ---
EXAM DATE/TIME: 07/31/2017 20:42 [facility] COMPARISON: No previous studies available for comparison. INDICATIONS : Pre op cardiac surgery. MEDICAL HISTORY : Hypercholesterolemia. Hypertension. Deep venous thrombosis. Pulmonary embolism. Sleep apnea. Non-hodg kins lymphoma. Chemotherapy. SURGICAL HISTORY : Pete filter. Port placement. Bilateral cataract removal. Skin cancer removal. ENCOUNTER: Initial ACUITY: 1 day PAIN SCORE: 0/10 LOCATION: Bilateral legs. TECHNIQUE: Venous ultrasound of the left and right leg was performed from the inguinal ligament to the proximal calf. Real-time, color Doppler and spectral tracing, compression and augmentation techniques were us ed. FINDINGS: RIGHT LEG: There is normal compressibility of the deep venous system from the inguinal region to the proximal ca lf. No echogenic clot is seen in the lumen of the common femoral, femoral, popliteal, and posterior tibial veins. There is a normal response of the venous system to proximal and distal augmentation an d respiration. LEFT LEG: There is possible minimal nonocclusive thrombus in the left peroneal vein. The remaining veins in the left lower extremity are normal. There is normal compressibility of the deep venous system from the inguinal region to the proximal calf. No echogenic clot is seen in the lumen of the common femoral, femoral, popliteal, and posterior tibial veins. There is a normal response of the venous system to p roximal and distal augmentation and respiration. CONCLUSION: 1. Minimal nonocclusive thrombus in the left peroneal vein. The remaining veins in the left lower ext remity are normal. 2. No thrombus is seen on the right side. Abdoul Hester MD on July 31, 2017 at 22:03 Board Certified Radiologist. This report was verified electronically.
--- NOTE | 2017-07-31 22:07 | RADRPT ---
EXAM DATE/TIME: 07/31/2017 20:49 [facility] COMPARISON: No previous studies available for comparison. INDICATIONS : Pre op cardiac surgery. MEDICAL HISTORY : Hypercholesterolemia. Hypertension. Deep venous thrombosis. Pulmonary embolism. Sleep apnea. Non-hodg kins lymphoma. Chemotherapy. SURGICAL HISTORY : Pete filter. Port placement. Bilateral cataract removal. Skin cancer removal. ENCOUNTER: Initial ACUITY: 1 day PAIN SCORE: 0/10 LOCATION: Bilateral legs. GREATER SAPHENOUS VEIN THIGH: PROXIMAL: Right 6 mm Left 7 mm MID: Right 3 mm Left 5 mm DISTAL: Right 3 mm Left 4 mm CALF: PROXIMAL: Right 3 mm Left 6 mm MID: Right 3 mm Left 4 mm DISTAL: Right 3 mm Left 3 mm FINDINGS: The venous system of the lower extremities are patent by color Doppler imaging. Measurements of the leg veins (in mm) are listed above. CONCLUSION: The greater saphenous veins are patent bilaterally and measured above. Abdoul Hester MD on July 31, 2017 at 22:05 Board Certified Radiologist. This report was verified electronically.
--- NOTE | 2017-07-31 22:08 | RADRPT ---
EXAM DATE/TIME: 07/31/2017 21:09 [facility] COMPARISON: No previous studies available for comparison. INDICATIONS : Pre op cardiac surgery. MEDICAL HISTORY : Hypercholesterolemia. Hypertension. Deep venous thrombosis. Pulmonary embolism. Sleep apnea. Non-hodg kins lymphoma. Chemotherapy. SURGICAL HISTORY : Pete filter. Port placement. Bilateral cataract removal. Skin cancer removal. ENCOUNTER: Initial ACUITY: 1 day PAIN SCORE: 0/10 LOCATION: Bilateral neck PEAK SYSTOLIC VELOCITIES (cm/sec): ICA/CCA RATIO: Right: 1.5 Left: 1.1 ICA: Right: 121 Left: 115 CCA: Right: 81 Left: 103 ECA: Right: 232 Left: 125 VERTEBRAL: Right: 56 antegrade Left: 70 antegrade Elevated flow velocities and ICA/CCA ratios have been found to correlate with increased degrees of vessel stenosis, calculated as percentage of diameter relative to a normal segment of distal ICA/CCA FINDINGS: RIGHT CAROTID: Mild calcified plaque is seen at the carotid bulb region. No significant stenosis is visualized. The waveforms are within normal limits. LEFT CAROTID: Mild calcified plaque is seen at the carotid bulb region. No significant stenosis is visualized. The waveforms are within normal limits. VERTEBRAL ARTERIES: Antegrade flow is seen in both vertebral arteries. MISCELLANEOUS: None. CONCLUSION: Mild calcified plaque at the carotid bulb regions without significant stenosis. Abdoul Hester MD on July 31, 2017 at 22:05 Board Certified Radiologist. This report was verified electronically.
--- NOTE | 2017-07-31 22:22 | PD.CARD.PN ---
Subjective Subjective Remarks Patient seen post-cath, late entry note No chest pain/SOB Objective Medications Current Medications Medications (Trade) Dose Ordered Sig/Rea Route Start Time Stop Time Status Last Admin (Cozaar) 100 mg DAILY PO 07/31/17 09:00 Future Hold 07/31/17 08:19 (Lipitor) 20 mg HS PO 07/30/17 21:00 07/31/17 21:44 (Nitrostat Sl) 0.4 mg Q5M PRN SL 07/30/17 12:30 (Morphine Inj) 2 mg Q30M PRN IV PUSH 07/30/17 12:30 (Tylenol) 650 mg Q6H PRN PO 07/30/17 12:30 (Colace) 100 mg BID PRN PO 07/30/17 12:30 (Lopressor) 12.5 mg BID PO 07/30/17 14:00 Future hold 07/31/17 21:44 (Vasotec Inj) 1.25 mg Q6H PRN IV PUSH 07/30/17 20:30 07/30/17 20:54 Heparin Sodium/ Dextrose 250 ml @ 10 mls/hr TITRATE PRN IV 07/30/17 22:00 07/31/17 21:52 (Heparin Inj) 5,000 units UNSCH PRN IV PUSH 07/30/17 22:00 (Heparin Inj) 2,500 units UNSCH PRN IV PUSH 07/30/17 22:00 Lactated Ringer's 1,000 ml @ 30 mls/hr Q24H PRN IV 07/31/17 01:45 08/03/17 01:44 07/31/17 13:49 Sodium Chloride 500 ml @ 30 mls/hr [id number] PRN IV 07/31/17 01:45 08/03/17 01:44 (Lopressor) 25 mg [employer]CH [employer] MANAGER PRN PO 07/31/17 01:45 08/03/17 01:44 (Betadine 5% Antisepsis Kit) 1 applic [employer] MANAGER PRN EACH NARE 07/31/17 01:45 08/03/17 01:44 (Chlorhexidine 2% Cloth) 3 pack [employer] MANAGER PRN TOPICAL 07/31/17 01:45 08/03/17 01:44 (NovoLIN R INJ) See Protocol Table ... [employer]CH GENERAL MANAGER PRN SQ 07/31/17 01:45 08/03/17 01:44 (Ecotrin Ec) 81 mg DAILY PO 08/01/17 09:00 (Zofran Inj) 4 mg Q6H PRN IVP 07/31/17 15:00 (Percocet 5-325 Mg) 1 tab Q4H PRN PO 07/31/17 15:00 (Percocet 5-325 Mg) 2 tab Q4H PRN PO 07/31/17 15:00 (NS Flush) 2 ml BID IV FLUSH 07/31/17 21:00 07/31/17 21:44 (NS Flush) 2 ml UNSCH PRN IV FLUSH 07/31/17 17:00 Papaverine HCl 60 mg/Nitroglycerin 100 mcg/Diltiazem HCl 100 mg/Sodium Chloride 100 ml @ 0 mls/hr [employer] MANAGER IRRIGATION 07/31/17 17:00 08/07/17 16:59 Cefazolin Sodium 500 mg/Sodium Chloride 505 ml @ 0 mls/hr [employer] MANAGER IRRIGATION 07/31/17 17:00 08/07/17 16:59 Cefazolin Sodium 2000 mg/Sodium Chloride 120 ml @ 240 mls/hr [employer] MANAGER IV 07/31/17 17:00 08/07/17 16:59 (Lopressor) 12.5 mg [employer] GENERAL MANAGER PO 07/31/17 17:00 08/07/17 16:59 (Hibiclens 4% Top Soln) 1 applic [employer] GENERAL MANAGER TOPICAL 07/31/17 17:00 08/07/17 16:59 Insulin Human Regular 100 units/ Sodium Chloride 100 ml @ 3 mls/hr TITRATE PRN IV 07/31/17 17:00 08/07/17 16:59 (D50w (Vial) Inj) 50 ml UNSCH PRN IV PUSH 07/31/17 17:00 (Pill Splitter) 1 ea UNSCH PRN OTHER 07/31/17 17:15 Vital Signs / I&O Vital Signs Date Time Temp Pulse Resp B/P (MAP) Pulse Ox O2 Delivery O2 Flow Rate FiO2 07/31/17 13:13 98.0 51 17 140/67 (91) 94 07/31/17 08:19 96.8 68 18 121/67 (85) 94 07/31/17 03:45 97.9 62 18 132/67 (88) 94 07/31/17 01:08 47 07/31/17 00:12 98.2 54 17 104/54 (71) 95 I/O 07/30/17 07/30/17 07/30/17 07/31/17 07/31/17 07/31/17 07:00 15:00 23:00 07:00 15:00 23:00 Intake Total 960 ml 100 ml Balance 960 ml 100 ml Intake Oral 960 ml IV Total 100 ml # Voids 3 # Bowel Movements 1 Physical Exam GENERAL: NAD, AAOx3 SKIN: Warm and dry. HEAD: Atraumatic. Normocephalic. EYES: Pupils equal and round. No scleral icterus. No injection or drainage. ENT: No nasal bleeding or discharge. Mucous membranes pink and moist. NECK: Trachea midline. No JVD. CARDIOVASCULAR: Regular rate and rhythm. RESPIRATORY: No accessory muscle use. Clear to auscultation. Breath sounds equal bilaterally. GASTROINTESTINAL: Abdomen soft, non-tender, nondistended. Hepatic and splenic margins not palpable. MUSCULOSKELETAL: Extremities without clubbing, cyanosis, or edema. No obvious deformities. NEUROLOGICAL: Awake and alert. No obvious cranial nerve deficits. Motor grossly within normal limits. Five out of 5 muscle strength in the arms and legs. Normal speech. PSYCHIATRIC: Appropriate mood and affect; insight and judgment normal. Laboratory Laboratory Tests Test 07/30/17 22:53 07/31/17 04:43 07/31/17 10:48 07/31/17 20:45 Total Creatine Kinase 106 U/L 98 U/L Creatine Kinase MB 1.9 NG/ML Troponin I 0.14 NG/ML 0.12 NG/ML Activated Partial Thromboplast Time 29.0 SEC 29.6 SEC Blood Urea Nitrogen 16 MG/DL Creatinine 0.99 MG/DL Random Glucose 103 MG/DL Calcium Level 8.5 MG/DL Sodium Level 141 MEQ/L Potassium Level 4.6 MEQ/L Chloride Level 108 MEQ/L Carbon Dioxide Level 27.6 MEQ/L Anion Gap 5 MEQ/L Estimat Glomerular Filtration Rate 75 ML/MIN Urine Color YELLOW Urine Turbidity CLEAR Urine pH 7.0 Urine Specific [place] 1.024 Urine Protein NEG mg/dL Urine Glucose (UA) NEG mg/dL Urine Ketones NEG mg/dL Urine Occult Blood NEG Urine Nitrite NEG Urine Bilirubin NEG Urine Urobilinogen LESS THAN 2.0 MG/DL Urine Leukocyte Esterase NEG Microscopic Urinalysis Comment CULT NOT INDICATED Imaging Last 24 hours Impressions Lower Extremity Ultrasound 07/31/17 0000 Signed Impressions: Service Date/Time: July 20:49 - CONCLUSION: The greater saphenous veins are patent bilaterally and measured above. Abdoul Hester MD Lower Extremity Ultrasound 07/31/17 0000 Signed Impressions: Service Date/Time: July 20:42 - CONCLUSION: 1. Minimal nonocclusive thrombus in the left peroneal vein. The remaining veins in the left lower extremity are normal. 2. No thrombus is seen on the right side. Abdoul Hester MD Carotid Artery Ultrasound 07/31/17 0000 Signed Impressions: Service Date/Time: July 21:09 - CONCLUSION: Mild calcified plaque at the carotid bulb regions without significant stenosis. Abdoul Hester MD Assessment and Plan Problem List: (1) Non-STEMI (non-ST elevated myocardial infarction) ICD Codes: I21.4 - Non-ST elevation (NSTEMI) myocardial infarction Status: Acute (2) Chest pain ICD Codes: R07.9 - Chest pain, unspecified (3) SOB (shortness of breath) ICD Codes: R06.02 - Shortness of breath (4) Multi-vessel coronary artery stenosis ICD Codes: I25.10 - Atherosclerotic heart disease of [place] coronary artery without angina pectoris Assessment and Plan 1) NSTEMI/MVCAD CT surgery evaluation Possible CABG Friday 2) 2D echo 3) Heparin drip 1 hour after TR band removed Patrick Briceno DO Jul 31, 2017 22:22
[2017-08-01] VITALS (26 sets, daily range): BP systolic 123–161; BP diastolic 62–85; PULSE 40–62; RESP 16–18; TEMP 97.3–98.3; O2SAT 93–96
--- NOTE | 2017-08-01 01:45 | MA ---
cc: Patrick Briceno DO DATE: 07/31/2017 PROCEDURE: Left heart catheterization, coronary angiogram, moderate sedation 15 minutes. PREPROCEDURE DIAGNOSES: Non-ST elevation myocardial infarction, chest pain. POSTPROCEDURE DIAGNOSIS: Multivessel coronary artery disease. MEDICATIONS: Versed 0.5 mg, fentanyl 25 mcg, heparin 4300 units, nitroglycerin 200 mcg, verapamil 2.5 mg. CONTRAST USED: 40 mL FLUOROSCOPY: 1.9 minutes. MODERATE SEDATION: 15 minutes. ESTIMATED BLOOD LOSS: 10 mL PROCEDURAL SUMMARY: Leonardo Bowie is a pleasant 66-year-old male who presented to [facility] Emergency Room due to typical chest pain. He was found to have a minimally elevated troponin, but due to his typical chest pain and shortness of breath it was felt that he should undergo cardiac catheterization to rule out significant coronary artery disease. Risks, benefits and alternatives were explained to him and he consented to such. He was brought to the lab and prepped in the usual sterile fashion. The right radial artery was accessed using a modified Seldinger technique and placement of a 5/6 Yoruba Slender sheath. This was easily aspirated and flushed. A JR4 was advanced over J-wire to the ascending aorta and across the aortic valve for measurement of left ventricular pressure. This is pulled back across the aortic valve showing no significant gradient of aortic stenosis. JR4 was used for selective angiography of the right coronary artery system. This was exchanged out for a JL3.5, which was used for selective angiography of the left coronary artery system. JL3.5 was removed over a J wire. A radial band was placed over the arteriotomy site for hemostasis. The patient left the earthmoving labourer cardiovascularly stable. FINDINGS: LEFT MAIN: Long vessel with overall 70% disease distally. It bifurcates into an LAD and circumflex. LEFT ANTERIOR DESCENDIN% occluded in the proximal portion. Competitive flow is noted in the mid portion. Right to left collaterals show distal vessel is patent and these collaterals fill retrograde to the mid portion as well as one of the diagonals. LEFT CIRCUMFLEX: Normal size vessel with 70% disease in the proximal portion. It gives off 2 obtuse marginals with no significant disease. RIGHT CORONARY ARTERY: Normal size vessel with a 30% lesion in the mid portion. Distally it supplies a PDA as well as multiple PLVs. Collaterals from the right fill the LAD retrogradely up to almost the left main as well as one of the diagonals. LEFT VENTRICULAR END DIASTOLIC PRESSURE: 13. IMPRESSIONS: 1. Non-ST elevation myocardial infarction. 2. Chest pain/shortness of breath consistent with coronary insufficiency. 3. Multivessel coronary artery disease as above. RECOMMENDATIONS: 1. Mr. Bowie presented with an NSTEMI and was found to have multivessel disease. Because of this, he will be recommended consideration of coronary artery bypass grafting. 2. He will be seen by CT surgery for consideration of coronary artery bypass graft. 3. He will continue on aspirin, beta jeffery and statin therapy. 4. We will check a 2-D echo to look at his overall left ventricular function, cardiac structure and possible valvulopathies. 5. He will be restarted on a heparin drip 1 hour after TR band is removed. 6. In anticipation of coronary artery bypass grafting his ARB will be discontinued. Thank you for allowing me to see Leonardo Bowie. If there are any questions please do not hesitate to call. Patrick Briceno DO VGP/rt , 01:05 AM , 01:43 AM
[2017-08-01 04:12] LABS: BASOPHIL % 0.6 % (0.0-2.0); EOSINOPHIL # 0.2 TH/MM3 (0-0.4); EOSINOPHIL % 2.6 % (0.0-4.0); HEMATOCRIT 38.2 % (39.0-51.0); HEMOGLOBIN 13.1 GM/DL (13.0-17.0); LYMPHOCYTE # 1.1 TH/MM3 (1.0-4.8); MEAN CELL VOLUME 88.7 FL (80.0-100.0); MEAN CORPUSCULAR HEMOGLOBIN 30.4 PG (27.0-34.0); MEAN CORPUSCULAR HGB CONC 34.2 % (32.0-36.0); MEAN PLATELET VOLUME 7.9 FL (7.0-11.0); MONO % 12.4 % (0.0-8.0); MONOCYTE # 0.8 TH/MM3 (0-0.9); NEUT % 66.4 % (16.0-70.0); PLATELET COUNT 138 TH/MM3 (150-450); RED CELL DISTRIBUTION WIDTH 13.9 % (11.6-17.2)
[2017-08-01 04:27] LABS: BICARBONATE 26.7 MEQ/L (21.0-32.0); CALCIUM 8.7 MG/DL (8.5-10.1); CREATININE 0.93 MG/DL (0.60-1.30)
[2017-08-01] MEDS: ASPIRIN EC 81 MG TABEC PO SCH (09:38)
[2017-08-01] MEDS: METOPROLOL TARTRATE 25 MG TAB PO SCH ×2 (09:40→20:43)
--- NOTE | 2017-08-01 10:06 | HHI.PR ---
Subjective Remarks Follow-up CAD. No further chest pain tolerating Lopressor. He is asymptomatic with heart rates in the mid 40s. Discussed with nursing Objective Vitals Vital Signs Date Time Temp Pulse Resp B/P (MAP) Pulse Ox O2 Delivery O2 Flow Rate FiO2 08/01/17 07:41 94 21 08/01/17 07:40 97.3 60 18 148/68 (94) 93 08/01/17 07:40 60 08/01/17 06:02 44 08/01/17 05:05 42 08/01/17 04:00 47 08/01/17 03:00 48 08/01/17 03:00 98.1 52 161/85 (110) 96 08/01/17 02:00 43 08/01/17 01:06 42 08/01/17 00:00 46 07/31/17 23:00 48 07/31/17 23:00 98.1 53 117/57 (77) 93 07/31/17 22:00 64 07/31/17 21:00 50 07/31/17 20:00 98.0 55 138/76 (96) 95 07/31/17 20:00 55 07/31/17 13:13 98.0 51 17 140/67 (91) 94 I/O 07/31/17 07/31/17 07/31/17 08/01/17 08/01/17 08/01/17 06:59 14:59 22:59 06:59 14:59 22:59 Intake Total 960 ml 100 ml 240 ml Output Total 500 ml Balance 960 ml 100 ml -260 ml Intake Oral 960 ml 240 ml IV Total 100 ml Output Urine Total 500 ml # Voids 3 # Bowel Movements 1 Result Diagram: 08/01/17 0341 08/01/17 0341 Imaging Last Impressions Lower Extremity Ultrasound 07/31/17 0000 Signed Impressions: Service Date/Time: July 20:49 - CONCLUSION: The greater saphenous veins are patent bilaterally and measured above. Abdoul Hester MD Carotid Artery Ultrasound 07/31/17 0000 Signed Impressions: Service Date/Time: July 21:09 - CONCLUSION: Mild calcified plaque at the carotid bulb regions without significant stenosis. Abdoul Hester MD Chest X-Ray 07/30/17 0948 Signed Impressions: Service Date/Time: Sunday, July 30, 2017 10:34 - CONCLUSION: No acute disease. Rodo Hansen MD Objective Remarks GENERAL: This is a well-nourished, well-developed patient, in no apparent distress. SKIN: No rashes, warm and dry CARDIOVASCULAR: Regular rhythm without murmurs, gallops, or rubs. Bradycardic RESPIRATORY: Fair air entry bilaterally. No wheezes, rales, or rhonchi. GASTROINTESTINAL: Abdomen soft, non-tender, nondistended. Positive bowel sounds MUSCULOSKELETAL: Extremities without clubbing, cyanosis, or edema. Pedal pulses appreciated. Dry dressing right wrist NEUROLOGICAL: Awake and alert. Moves all extremity. Normal speech.no focal neurological deficit Procedures cardiac catheterization A/P Problem List: (1) Non-STEMI (non-ST elevated myocardial infarction) ICD Code: I21.4 - Non-ST elevation (NSTEMI) myocardial infarction Status: Acute Assessment and Plan 66 years old male with history of hypertension, hyperlipidemia and Hx of DVT and PE came with worsening chest pain and elevated troponin NSTEMI. Cardiac catheterization with multivessel CAD for CABG on Friday. Stable continue aspirin, Lopressor, statin and heparin drip Hypertension. Improved continue ARB and Lopressor Sinus bradycardia on beta-jeffery. Improved we will continue to monitor History of DVT and PE 10 years ago on elliquis which is currently on hold because of heparin drip Hyperlipidemia on rosuvastatin. LDL 102. Increase Lipitor to 40 mg daily History of non-Hodgkin lymphoma in remission status post chemotherapy. Outpatient follow-up DVT prophylaxis patient on heparin drip Discharge Planning Needs bypass scheduled on Friday Zane Dawson MD Aug 01, 2017 10:06
--- NOTE | 2017-08-01 10:58 | PD.CARD.PN ---
Subjective Subjective Remarks No chest pain/SOB Up to the chair Over night asymptomatic bradycardia Objective Medications Current Medications Medications (Trade) Dose Ordered Sig/Rea Route Start Time Stop Time Status Last Admin (Cozaar) 100 mg DAILY PO 07/31/17 09:00 Future hold 07/31/17 08:19 (Nitrostat Sl) 0.4 mg Q5M PRN SL 07/30/17 12:30 (Morphine Inj) 2 mg Q30M PRN IV PUSH 07/30/17 12:30 (Tylenol) 650 mg Q6H PRN PO 07/30/17 12:30 (Colace) 100 mg BID PRN PO 07/30/17 12:30 (Lopressor) 12.5 mg BID PO 07/30/17 14:00 Future hold 08/01/17 09:40 (Vasotec Inj) 1.25 mg Q6H PRN IV PUSH 07/30/17 20:30 07/30/17 20:54 Heparin Sodium/ Dextrose 250 ml @ 10 mls/hr TITRATE PRN IV 07/30/17 22:00 07/31/17 21:52 (Heparin Inj) 5,000 units UNSCH PRN IV PUSH 07/30/17 22:00 (Heparin Inj) 2,500 units UNSCH PRN IV PUSH 07/30/17 22:00 Lactated Ringer's 1,000 ml @ 30 mls/hr Q24H PRN IV 07/31/17 01:45 08/03/17 01:44 07/31/17 13:49 Sodium Chloride 500 ml @ 30 mls/hr [id number] PRN IV 07/31/17 01:45 08/03/17 01:44 (Lopressor) 25 mg REHAB PHYSICIAN PRN PO 07/31/17 01:45 08/03/17 01:44 (Betadine 5% Antisepsis Kit) 1 applic REHAB PHYSICIAN PRN EACH NARE 07/31/17 01:45 08/03/17 01:44 (Chlorhexidine 2% Cloth) 3 pack REHAB PHYSICIAN PRN TOPICAL 07/31/17 01:45 08/03/17 01:44 (NovoLIN R INJ) See Protocol Table ... REHAB PHYSICIAN PRN SQ 07/31/17 01:45 08/03/17 01:44 (Ecotrin Ec) 81 mg DAILY PO 08/01/17 09:00 08/01/17 09:38 (Zofran Inj) 4 mg Q6H PRN IVP 07/31/17 15:00 (Percocet 5-325 Mg) 1 tab Q4H PRN PO 07/31/17 15:00 (Percocet 5-325 Mg) 2 tab Q4H PRN PO 07/31/17 15:00 (NS Flush) 2 ml BID IV FLUSH 07/31/17 21:00 07/31/17 21:44 (NS Flush) 2 ml UNSCH PRN IV FLUSH 07/31/17 17:00 Papaverine HCl 60 mg/Nitroglycerin 100 mcg/Diltiazem HCl 100 mg/Sodium Chloride 100 ml @ 0 mls/hr REHAB PHYSICIAN IRRIGATION 07/31/17 17:00 08/07/17 16:59 Cefazolin Sodium 500 mg/Sodium Chloride 505 ml @ 0 mls/hr REHAB PHYSICIAN IRRIGATION 07/31/17 17:00 08/07/17 16:59 Cefazolin Sodium 2000 mg/Sodium Chloride 120 ml @ 240 mls/hr REHAB PHYSICIAN IV 07/31/17 17:00 08/07/17 16:59 (Lopressor) 12.5 mg REHAB PHYSICIAN PO 07/31/17 17:00 08/07/17 16:59 (Hibiclens 4% Top Soln) 1 applic REHAB PHYSICIAN TOPICAL 07/31/17 17:00 08/07/17 16:59 Insulin Human Regular 100 units/ Sodium Chloride 100 ml @ 3 mls/hr TITRATE PRN IV 07/31/17 17:00 08/07/17 16:59 (D50w (Vial) Inj) 50 ml UNSCH PRN IV PUSH 07/31/17 17:00 (Pill Splitter) 1 ea UNSCH PRN OTHER 07/31/17 17:15 (Lipitor) 40 mg HS PO 08/01/17 21:00 Vital Signs / I&O Vital Signs Date Time Temp Pulse Resp B/P (MAP) Pulse Ox O2 Delivery O2 Flow Rate FiO2 08/01/17 07:41 94 21 08/01/17 07:40 97.3 60 18 148/68 (94) 93 08/01/17 07:40 60 08/01/17 06:02 44 08/01/17 05:05 42 08/01/17 04:00 47 08/01/17 03:00 48 08/01/17 03:00 98.1 52 161/85 (110) 96 08/01/17 02:00 43 08/01/17 01:06 42 08/01/17 00:00 46 07/31/17 23:00 48 07/31/17 23:00 98.1 53 117/57 (77) 93 07/31/17 22:00 64 07/31/17 21:00 50 07/31/17 20:00 98.0 55 138/76 (96) 95 07/31/17 20:00 55 07/31/17 13:13 98.0 51 17 140/67 (91) 94 I/O 07/31/17 07/31/17 07/31/17 08/01/17 08/01/17 08/01/17 07:00 15:00 23:00 07:00 15:00 23:00 Intake Total 960 ml 100 ml 240 ml Output Total 500 ml Balance 960 ml 100 ml -260 ml Intake Oral 960 ml 240 ml IV Total 100 ml Output Urine Total 500 ml # Voids 3 # Bowel Movements 1 Physical Exam GENERAL: NAD, AAOx3 SKIN: Warm and dry. HEAD: Atraumatic. Normocephalic. EYES: Pupils equal and round. No scleral icterus. No injection or drainage. ENT: No nasal bleeding or discharge. Mucous membranes pink and moist. NECK: Trachea midline. No JVD. CARDIOVASCULAR: Regular rate and rhythm. RESPIRATORY: No accessory muscle use. Clear to auscultation. Breath sounds equal bilaterally. GASTROINTESTINAL: Abdomen soft, non-tender, nondistended. Hepatic and splenic margins not palpable. MUSCULOSKELETAL: Extremities without clubbing, cyanosis, or edema. No obvious deformities. Right radial no hematoma, neurovascularly intact distally NEUROLOGICAL: Awake and alert. No obvious cranial nerve deficits. Motor grossly within normal limits. Five out of 5 muscle strength in the arms and legs. Normal speech. PSYCHIATRIC: Appropriate mood and affect; insight and judgment normal. Laboratory Laboratory Tests Test 07/31/17 20:45 07/31/17 21:45 08/01/17 03:05 08/01/17 03:41 Urine Color YELLOW Urine Turbidity CLEAR Urine pH 7.0 Urine Specific [place] 1.024 Urine Protein NEG mg/dL Urine Glucose (UA) NEG mg/dL Urine Ketones NEG mg/dL Urine Occult Blood NEG Urine Nitrite NEG Urine Bilirubin NEG Urine Urobilinogen LESS THAN 2.0 MG/DL Urine Leukocyte Esterase NEG Microscopic Urinalysis Comment CULT NOT INDICATED Nasal Screen MRSA (PCR) MRSA NOT DETECTED Activated Partial Thromboplast Time 29.5 SEC White Blood Count 6.0 TH/MM3 Red Blood Count 4.30 MIL/MM3 Hemoglobin 13.1 GM/DL Hematocrit 38.2 % Mean Corpuscular Volume 88.7 FL Mean Corpuscular Hemoglobin 30.4 PG Mean Corpuscular Hemoglobin Concent 34.2 % Red Cell Distribution Width 13.9 % Platelet Count 138 TH/MM3 Mean Platelet Volume 7.9 FL Neutrophils (%) (Auto) 66.4 % Lymphocytes (%) (Auto) 18.0 % Monocytes (%) (Auto) 12.4 % Eosinophils (%) (Auto) 2.6 % Basophils (%) (Auto) 0.6 % Neutrophils # (Auto) 4.0 TH/MM3 Lymphocytes # (Auto) 1.1 TH/MM3 Monocytes # (Auto) 0.8 TH/MM3 Eosinophils # (Auto) 0.2 TH/MM3 Basophils # (Auto) 0.0 TH/MM3 CBC Comment DIFF FINAL Differential Comment Blood Urea Nitrogen 17 MG/DL Creatinine 0.93 MG/DL Random Glucose 118 MG/DL Calcium Level 8.7 MG/DL Sodium Level 140 MEQ/L Potassium Level 3.9 MEQ/L Chloride Level 106 MEQ/L Carbon Dioxide Level 26.7 MEQ/L Anion Gap 7 MEQ/L Estimat Glomerular Filtration Rate 81 ML/MIN Assessment and Plan Problem List: (1) Non-STEMI (non-ST elevated myocardial infarction) ICD Codes: I21.4 - Non-ST elevation (NSTEMI) myocardial infarction Status: Acute (2) Chest pain ICD Codes: R07.9 - Chest pain, unspecified (3) SOB (shortness of breath) ICD Codes: R06.02 - Shortness of breath (4) Multi-vessel coronary artery stenosis ICD Codes: I25.10 - Atherosclerotic heart disease of knik coronary artery without angina pectoris Assessment and Plan 1) NSTEMI/MVCAD CT surgery evaluation Possible CABG Friday 2) 2D echo 3) Heparin drip 4) Asymptomatic bradycardia overnight 5) If concerns over the weekend, Dr. Castanon is covering Will continue to follow next week Patrick Briceno DO Aug 01, 2017 10:57
--- NOTE | 2017-08-01 13:44 | ECHRPT ---
Indication: NSTEMI CONCLUSIONS The left ventricular systolic function is low normal with an estimated ejection fraction in the rang e of 50- 55%. Mildly dilated left ventricle. Wall thickness is measured at the upper limits of normal. The right ventricle is mildly dilated. Mild thickening of the mitral valve leaflets. Trace mitral valve regurgitation. Mild thickening of the aortic valve leaflets. There is trace tricuspid valve regurgitation. The estimated pulmonary arterial pressure is 42.3 mmHg. BP: 132 / 67 HR: 62 Rhythm: Sinus MEASUREMENTS (Male / Female) Normal Values Technical Quality:Fair 2D ECHO LV Diastolic Diameter PLAX 5.5 cm 4.2 - 5.9 / 3.9 - 5.3 cm LV Systolic Diameter PLAX 4.3 cm IVS Diastolic Thickness 1.1 cm 0.6 - 1.0 / 0.6 - 0.9 cm LVPW Diastolic Thickness 1.0 cm 0.6 - 1.0 / 0.6 - 0.9 cm LV Relative Wall Thickness 0.4 RV Internal Dim ED PLAX 3.8 cm LVOT Diameter 2.3 cm LA Systolic Diameter LX 5.0 cm 3.0 - 4.0 / 2.7 - 3.8 cm M-MODE Aortic Root Diameter MM 3.0 cm LA Systolic Diameter MM 3.9 cm LA Ao Ratio MM 1.3 AV Cusp Separation MM 2.2 cm DOPPLER AV Peak Velocity 169.0 cm/s AV Peak Gradient 11.4 mmHg LVOT Peak Velocity 113.0 cm/s LVOT Peak Gradient 5.1 mmHg AV Area Cont Eq pk 2.8 cm MV Area PHT 3.0 cm Mitral E Point Velocity 85.4 cm/s Mitral A Point Velocity 62.4 cm/s Mitral E to A Ratio 1.4 LV E' Lateral Velocity 11.7 cm/s Mitral E to LV E' Lateral Ratio 7.3 LV E' Septal Velocity 7.6 cm/s Mitral E to LV E' Septal Ratio 11.2 TR Peak Velocity 284.0 cm/s TR Peak Gradient 32.3 mmHg Right Atrial Pressure 10.0 mmHg Pulmonary Artery Systolic Pressu 42.3 mmHg Right Ventricular Systolic Press 42.3 mmHg FINDINGS LEFT VENTRICLE The left ventricular systolic function is low normal with an estimated ejection fraction in the rang e of 50- 55%. Mildly dilated left ventricle. Wall thickness is measured at the upper limits of normal. RIGHT VENTRICLE The right ventricle is mildly dilated. LEFT ATRIUM The left atrial size is normal. RIGHT ATRIUM The right atrial size is normal. ATRIAL SEPTUM Normal atrial septal thickness without atrial level shunting by limited color doppler interrogation. AORTA The aortic root and proximal ascending aorta are normal in size on limited imaging. MITRAL VALVE Mild thickening of the mitral valve leaflets. Trace mitral valve regurgitation. AORTIC VALVE Mild thickening of the aortic valve leaflets. TRICUSPID VALVE Structurally normal tricuspid valve. There is trace tricuspid valve regurgitation. The estimated pulmonary arterial pressure is 42.3 mmHg. PULMONARY VALVE No pulmonary valve regurgitation or stenosis. VESSELS The inferior vena cava is normal in size. PERICARDIUM No pericardial effusion. Les Villagomez MD, FACC (Electronically Signed) Final Date:01 August 2017 13:43
[2017-08-01] MEDS: HEPARIN SODIUM - IV 10,000 UNITS/10 ML VIAL IV PUSH PRN ×2 (13:53→21:49)
--- NOTE | 2017-08-01 14:25 | PD.CAR.PN ---
CVT Progress Note Subjective/Hospital Course: pt seens and evaluated, sts data discussed with pt schedule dfor CABG on Friday 08/04 RISK SCORES About the STS Risk Calculator Procedure: CAB Only Risk of Mortality: 0.695% Morbidity or Mortality: 9.228% Long Length of Stay: 3.029% Short Length of Stay: 56.614% Permanent Stroke: 0.642% Prolonged Ventilation: 6.226% DSW Infection: 0.38% Renal Failure: 1.511% Reoperation: 3.723% Objective: Vital Signs Date Time Temp Pulse Resp B/P (MAP) Pulse Ox O2 Delivery O2 Flow Rate FiO2 08/01/17 07:41 94 21 08/01/17 07:40 97.3 60 18 148/68 (94) 93 08/01/17 07:40 60 08/01/17 06:02 44 08/01/17 05:05 42 08/01/17 04:00 47 08/01/17 03:00 48 08/01/17 03:00 98.1 52 161/85 (110) 96 08/01/17 02:00 43 08/01/17 01:06 42 08/01/17 00:00 46 07/31/17 23:00 48 07/31/17 23:00 98.1 53 117/57 (77) 93 07/31/17 22:00 64 07/31/17 21:00 50 07/31/17 20:00 98.0 55 138/76 (96) 95 07/31/17 20:00 55 Labs: Laboratory Tests Test 08/01/17 03:05 08/01/17 03:41 08/01/17 11:25 Activated Partial Thromboplast Time 29.5 SEC (24.3-30.1) 29.9 SEC (24.3-30.1) White Blood Count 6.0 TH/MM3 (4.0-11.0) Red Blood Count 4.30 MIL/MM3 (4.50-5.90) Hemoglobin 13.1 GM/DL (13.0-17.0) Hematocrit 38.2 % (39.0-51.0) Mean Corpuscular Volume 88.7 FL (80.0-100.0) Mean Corpuscular Hemoglobin 30.4 PG (27.0-34.0) Mean Corpuscular Hemoglobin Concent 34.2 % (32.0-36.0) Red Cell Distribution Width 13.9 % (11.6-17.2) Platelet Count 138 TH/MM3 (150-450) Mean Platelet Volume 7.9 FL (7.0-11.0) Neutrophils (%) (Auto) 66.4 % (16.0-70.0) Lymphocytes (%) (Auto) 18.0 % (9.0-44.0) Monocytes (%) (Auto) 12.4 % (0.0-8.0) Eosinophils (%) (Auto) 2.6 % (0.0-4.0) Basophils (%) (Auto) 0.6 % (0.0-2.0) Neutrophils # (Auto) 4.0 TH/MM3 (1.8-7.7) Lymphocytes # (Auto) 1.1 TH/MM3 (1.0-4.8) Monocytes # (Auto) 0.8 TH/MM3 (0-0.9) Eosinophils # (Auto) 0.2 TH/MM3 (0-0.4) Basophils # (Auto) 0.0 TH/MM3 (0-0.2) CBC Comment DIFF FINAL Differential Comment Blood Urea Nitrogen 17 MG/DL (7-18) Creatinine 0.93 MG/DL (0.60-1.30) Random Glucose 118 MG/DL (74-106) Calcium Level 8.7 MG/DL (8.5-10.1) Sodium Level 140 MEQ/L (136-145) Potassium Level 3.9 MEQ/L (3.5-5.1) Chloride Level 106 MEQ/L (98-107) Carbon Dioxide Level 26.7 MEQ/L (21.0-32.0) Anion Gap 7 MEQ/L (5-15) Estimat Glomerular Filtration Rate 81 ML/MIN (>89) Result Diagram: 08/01/1734008/01/17 034 (1) Non-STEMI (non-ST elevated myocardial infarction) (2) Chest pain (3) SOB (shortness of breath) (4) Multi-vessel coronary artery stenosis Shu Menjivar Aug 01, 2017 14:25
--- NOTE | 2017-08-01 14:49 | MB ---
cc: Shu Menjivar Jacqueline R ARNP DATE: 08/01/2017 HISTORY OF PRESENT ILLNESS: A 66-year-old male who presented to the emergency room due to chest pain, shortness of breath. He has had this off and on for the past month or two. He sees Dr. Morgan and was supposed to see him in a week or so, said the pain was getting worse, 4/10, squeezing in nature. He decided to come into the emergency room. His troponin was 0.15. Because of this, he underwent cardiac catheterization by Dr. Briceno, which showed left main disease of 70%, proximal LAD 90%, the mid-distal LAD 100%. The diagonal was 50%. The circ was 60%, the OM 50%, the RCA 30%. The patient currently remains on aspirin, beta jeffery, statin, also heparin drip. Echocardiogram was done which showed an ejection fraction of 50%, mildly dilated left ventricle. Trace tricuspid regurgitation, trace mitral valve regurgitation. We were consulted to evaluate for coronary artery bypass grafting. PAST MEDICAL HISTORY: Hypertension, hyperlipidemia, history of DVT, pulmonary embolism in the past, has been on Eliquis which has since been stopped. He has history of non-Hodgkin's lymphoma, status post chemotherapy. His last dose was about 5-6 years ago. He is followed by Dr. Ajay Dubon in [place]. PAST SURGICAL HISTORY: Include Pete IVC filter, bilateral cataract surgery, melanoma excision on the nose. ALLERGIES NO KNOWN DRUG ALLERGIES. HOME MEDICATIONS: Include: 1. Eliquis. 2. Crestor. 3. Losartan. FAMILY HISTORY: Mother from a brain bleed. Father cancer. SOCIAL HISTORY: Smoked for about 10 years, quit 25 years ago. Drinks beer on a daily basis. . Helps to take care of his sister. Retired insurance. REVIEW OF SYSTEMS: GENERAL: No night sweats, fever, heat and cold intolerance. SKIN: No psoriasis, itching or hives. HEENT: No blurred vision, hearing loss. RESPIRATORY: Positive for shortness of breath. CARDIOVASCULAR: As above in the HPI. GASTROINTESTINAL: No diarrhea or vomiting. GENITOURINARY: No burning, frequency, urgency. CENTRAL NERVOUS SYSTEM: No history of TIA, CVA or seizure disorder. ENDOCRINOLOGY: No history of diabetes or hypothyroidism. PHYSICAL EXAMINATION: VITAL SIGNS: Blood pressure 140/60, heart rate is 60. Temperature T-max 97.3, O2 saturation 94 on room air. GENERAL: Awake, alert, in no acute distress. HEENT: Head is normocephalic, atraumatic. Pupils equal and reactive. Oral mucosa pink, moist. NECK: Supple. No JVD. HEART: Sounds S1, S2. Regular rate and rhythm. No audible rubs, murmurs, or gallops. LUNGS: Clear to auscultation. No wheezes, rales or rhonchi. ABDOMEN: Soft, nontender. No masses or organomegaly. EXTREMITIES: No cyanosis, clubbing, or edema. LABORATORY DATA: Hemoglobin 13, hematocrit of 38, white cell count of 6, platelet count of 138. Sodium 140, potassium 3.9, BUN is 17, creatinine 0.93. Troponin at 0.15. Urinalysis is unremarkable. MRSA not detected. Carotid ultrasound unremarkable, no significant stenosis. He has lower extremity ultrasound showing minimally nonocclusive thrombus in the left peroneal vein. The remaining veins in the left lower extremity remain normal. There is no thrombus on the right. Vein mapping is adequate. Chest x-ray is unremarkable. IMPRESSION: This is a 66-year-old male with chest pain, ruled in for a non-STEMI with multivessel disease, ejection fraction of 50 percent. The cardiac films have been evaluated by Dr. Debo Orr. The procedures, alternatives and risks have been discussed with the patient. PLAN: Will be for coronary artery bypass grafting x3 to be scheduled for FridayAugust 04. Further lab work will be pending on Friday for surgery on Friday and education will be given to the patient and the family. TANYA Britt MD JRT/GERA , 02:22 PM , 02:48 PM
[2017-08-01] MEDS: ATORVASTATIN 20 MG TAB PO SCH (20:39)
[2017-08-01] MEDS: SODIUM CHLORIDE 0.9% FLUSH 10 ML FLUSH IV FLUSH SCH (20:43)
[2017-08-02] VITALS (30 sets, daily range): BP systolic 130–162; BP diastolic 59–75; PULSE 39–67; RESP 16–18; TEMP 97.6–98.4; O2SAT 94–97
[2017-08-02] MEDS: METOPROLOL TARTRATE 25 MG TAB PO SCH ×2 (08:56→21:00)
[2017-08-02] MEDS: LOSARTAN 50 MG TAB PO SCH (08:56)
[2017-08-02] MEDS: SODIUM CHLORIDE 0.9% FLUSH 10 ML FLUSH IV FLUSH SCH ×2 (08:56→22:33)
[2017-08-02] MEDS: ASPIRIN EC 81 MG TABEC PO SCH (08:56)
[2017-08-02] MEDS: HEPARIN 25,000 UNITS-D5W 250 ML - PREMIX IV PRN ×2 (09:25→23:49)
[2017-08-02] MEDS: HEPARIN SODIUM - IV 10,000 UNITS/10 ML VIAL IV PUSH PRN ×2 (09:30→16:40)
--- NOTE | 2017-08-02 09:53 | HHI.PR ---
Subjective Remarks Follow-up CAD. No chest pain. Continues to have bradycardia but no symptoms on beta-jeffery which was given last night discussed with nursing Objective Vitals Vital Signs Date Time Temp Pulse Resp B/P (MAP) Pulse Ox O2 Delivery O2 Flow Rate FiO2 08/02/17 09:00 56 08/02/17 08:47 97 21 08/02/17 08:00 67 08/02/17 07:18 98.2 54 18 162/75 (104) 97 08/02/17 07:00 42 08/02/17 06:00 41 08/02/17 05:00 41 08/02/17 04:00 39 08/02/17 03:00 97.6 56 130/59 (82) 96 08/02/17 03:00 42 08/02/17 02:00 40 08/02/17 01:00 42 08/02/17 00:00 40 08/01/17 23:00 40 08/01/17 23:00 97.9 48 130/69 (89) 96 08/01/17 22:00 42 08/01/17 21:00 62 08/01/17 20:00 50 08/01/17 19:06 96 08/01/17 19:00 98.3 58 137/65 (89) 95 08/01/17 19:00 56 08/01/17 18:00 54 08/01/17 17:00 58 08/01/17 15:10 97.8 47 16 123/62 (82) 94 08/01/17 15:10 47 08/01/17 15:00 54 08/01/17 14:00 46 08/01/17 13:00 56 08/01/17 11:30 98.0 55 18 139/67 (91) 94 08/01/17 11:30 55 08/01/17 11:00 54 08/01/17 10:00 54 I/O 08/01/17 08/01/17 08/01/17 08/02/17 08/02/17 08/02/17 07:00 15:00 23:00 07:00 15:00 23:00 Intake Total 240 ml 850 ml 523 ml Output Total 500 ml 950 ml Balance -260 ml 850 ml -427 ml Intake Oral 240 ml 850 ml 360 ml IV Total 163 ml Output Urine Total 500 ml 950 ml # Voids 6 # Bowel Movements 0 Result Diagram: 08/01/17 0341 08/01/17 0341 Imaging Last Impressions Lower Extremity Ultrasound 07/31/17 0000 Signed Impressions: Service Date/Time: July 20:49 - CONCLUSION: The greater saphenous veins are patent bilaterally and measured above. Abdoul Hester MD Carotid Artery Ultrasound 07/31/17 0000 Signed Impressions: Service Date/Time: July 21:09 - CONCLUSION: Mild calcified plaque at the carotid bulb regions without significant stenosis. Abdoul Hester MD Chest X-Ray 07/30/17 0948 Signed Impressions: Service Date/Time: Sunday, July 30, 2017 10:34 - CONCLUSION: No acute disease. Rodo Hansen MD Objective Remarks GENERAL: This is a well-nourished, well-developed patient, in no apparent distress. SKIN: No rashes, warm and dry CARDIOVASCULAR: Regular rhythm without murmurs, gallops, or rubs. Bradycardic RESPIRATORY: Fair air entry bilaterally. No wheezes, rales, or rhonchi. GASTROINTESTINAL: Abdomen soft, non-tender, nondistended. Positive bowel sounds MUSCULOSKELETAL: Extremities without clubbing, cyanosis, or edema. Pedal pulses appreciated. Dry dressing right wrist NEUROLOGICAL: Awake and alert. Moves all extremity. Normal speech.no focal neurological deficit Procedures cardiac catheterization A/P Problem List: (1) Non-STEMI (non-ST elevated myocardial infarction) ICD Code: I21.4 - Non-ST elevation (NSTEMI) myocardial infarction Status: Acute Assessment and Plan 66 years old male with history of hypertension, hyperlipidemia and Hx of DVT and PE came with worsening chest pain and elevated troponin NSTEMI. Cardiac catheterization with multivessel CAD for CABG on Friday. Stable continue aspirin, Lopressor, statin and heparin drip Hypertension. Improved continue ARB and Lopressor Symptomatic sinus bradycardia on beta-jeffery. Will continue to monitor History of DVT and PE 10 years ago on eliquis which is currently on hold patient on heparin drip Hyperlipidemia on rosuvastatin. LDL 102. Increased Lipitor to 40 mg daily History of non-Hodgkin lymphoma in remission status post chemotherapy. Outpatient follow-up DVT prophylaxis patient on heparin drip Discharge Planning Needs bypass scheduled on Friday Zane Dawson MD Aug 02, 2017 09:53
[2017-08-02] MEDS: ATORVASTATIN 20 MG TAB PO SCH (22:32)
[2017-08-03] VITALS (30 sets, daily range): BP systolic 128–163; BP diastolic 59–73; PULSE 40–70; RESP 15–18; TEMP 97.5–98.8; O2SAT 93–97
[2017-08-03 03:38] LABS: INTERNATIONAL NORMALIZED RATIO 1.1 RATIO; PROTHROMBIN TIME - PATIENT 11.1 SEC (9.8-11.6)
[2017-08-03 03:52] LABS: ALBUMIN 3.7 GM/DL (3.4-5.0); AST (GOT) 32 U/L (15-37); BICARBONATE 28.6 MEQ/L (21.0-32.0); BLOOD UREA NITROGEN 13 MG/DL (7-18); CALCIUM 8.7 MG/DL (8.5-10.1); CHLORIDE 107 MEQ/L (98-107); CREATININE 0.95 MG/DL (0.60-1.30); GLOMERULAR FILTRATION RATE 79 ML/MIN (>89); GLUCOSE,RANDOM 97 MG/DL (74-106); SODIUM (NA) 141 MEQ/L (136-145)
[2017-08-03 03:56] LABS: ALKALINE PHOSPHATASE 87 U/L (45-117); ALT (GPT) 56 U/L (12-78); TOTAL BILIRUBIN ADULT 0.5 MG/DL (0.2-1.0); TOTAL PROTEIN 6.9 GM/DL (6.4-8.2)
--- NOTE | 2017-08-03 06:36 | PD.CAR.PN ---
CVT Progress Note Subjective/Hospital Course: pt seens and evaluated, sts data discussed with pt schedule dfor CABG on Friday 08/04 RISK SCORES About the STS Risk Calculator Procedure: CAB Only Risk of Mortality: 0.695% Morbidity or Mortality: 9.228% Long Length of Stay: 3.029% Short Length of Stay: 56.614% Permanent Stroke: 0.642% Prolonged Ventilation: 6.226% DSW Infection: 0.38% Renal Failure: 1.511% Reoperation: 3.723% 08/03/17 Denies chest pain Objective: Vital Signs Date Time Temp Pulse Resp B/P (MAP) Pulse Ox O2 Delivery O2 Flow Rate FiO2 08/03/17 06:00 40 08/03/17 05:00 42 08/03/17 04:00 54 08/03/17 04:00 97.5 43 16 131/59 (83) 96 08/03/17 03:00 44 08/03/17 02:00 40 08/03/17 01:00 40 08/03/17 00:00 42 08/02/17 23:27 98.3 47 16 142/64 (90) 95 08/02/17 23:00 42 08/02/17 22:00 46 08/02/17 21:35 94 21 08/02/17 21:00 48 08/02/17 20:00 59 08/02/17 19:40 98.3 59 16 151/62 (91) 95 08/02/17 19:00 54 08/02/17 18:00 62 08/02/17 17:00 46 08/02/17 16:00 47 08/02/17 15:00 53 08/02/17 15:00 98.4 53 18 142/65 (90) 96 08/02/17 14:00 46 08/02/17 13:00 48 08/02/17 12:00 44 08/02/17 11:30 98.0 48 18 131/62 (85) 97 08/02/17 11:00 52 08/02/17 10:00 50 08/02/17 09:00 56 08/02/17 08:47 97 21 08/02/17 08:00 67 08/02/17 07:18 98.2 54 18 162/75 (104) 97 08/02/17 07:00 42 Labs: Laboratory Tests Test 08/02/17 21:34 08/03/17 02:54 Activated Partial Thromboplast Time 45.2 SEC (24.3-30.1) 44.6 SEC (24.3-30.1) Prothrombin Time 11.1 SEC (9.8-11.6) Prothromb Time International Ratio 1.1 RATIO Blood Urea Nitrogen 13 MG/DL (7-18) Creatinine 0.95 MG/DL (0.60-1.30) Random Glucose 97 MG/DL (74-106) Total Protein 6.9 GM/DL (6.4-8.2) Albumin 3.7 GM/DL (3.4-5.0) Calcium Level 8.7 MG/DL (8.5-10.1) Alkaline Phosphatase 87 U/L (45-117) Aspartate Amino Transf (AST/SGOT) 32 U/L (15-37) Alanine Aminotransferase (ALT/SGPT) 56 U/L (12-78) Total Bilirubin 0.5 MG/DL (0.2-1.0) Sodium Level 141 MEQ/L (136-145) Potassium Level 4.3 MEQ/L (3.5-5.1) Chloride Level 107 MEQ/L (98-107) Carbon Dioxide Level 28.6 MEQ/L (21.0-32.0) Anion Gap 5 MEQ/L (5-15) Estimat Glomerular Filtration Rate 79 ML/MIN (>89) Result Diagram: 08/01/17 0341 08/03/17 0254 Imaging: Last Impressions Lower Extremity Ultrasound 07/31/17 0000 Signed Impressions: Service Date/Time: July 20:49 - CONCLUSION: The greater saphenous veins are patent bilaterally and measured above. Abdoul Hester MD Carotid Artery Ultrasound 07/31/17 0000 Signed Impressions: Service Date/Time: July 21:09 - CONCLUSION: Mild calcified plaque at the carotid bulb regions without significant stenosis. Abdoul Hester MD Chest X-Ray 07/30/17 0948 Signed Impressions: Service Date/Time: Sunday, July 30, 2017 10:34 - CONCLUSION: No acute disease. Rodo Hansen MD Cardiovascular: RRR Telemetry: NSR Pulmonary: CTA GI/: NABS, NT Plan: Plan for CABG in AM. Allpreop studies reviewed and patient's questions addressed. (1) Non-STEMI (non-ST elevated myocardial infarction) (2) Chest pain (3) SOB (shortness of breath) (4) Multi-vessel coronary artery stenosis Debo Orr MD Aug 03, 2017 06:36
[2017-08-03] MEDS: LOSARTAN 50 MG TAB PO SCH (08:43)
[2017-08-03] MEDS: ASPIRIN EC 81 MG TABEC PO SCH (08:43)
[2017-08-03] MEDS: SODIUM CHLORIDE 0.9% FLUSH 10 ML FLUSH IV FLUSH SCH ×2 (08:43→20:56)
[2017-08-03] MEDS: METOPROLOL TARTRATE 25 MG TAB PO SCH ×2 (08:45→20:56)
--- NOTE | 2017-08-03 09:12 | HHI.PR ---
Subjective Remarks Follow-up CAD. No chest pain. BP slightly elevated. For CABG in the morning. Discussed with nursing Objective Vitals Vital Signs Date Time Temp Pulse Resp B/P (MAP) Pulse Ox O2 Delivery O2 Flow Rate FiO2 08/03/17 07:18 98.8 50 18 163/72 (102) 97 08/03/17 06:00 40 08/03/17 05:00 42 08/03/17 04:00 54 08/03/17 04:00 97.5 43 16 131/59 (83) 96 08/03/17 03:00 44 08/03/17 02:00 40 08/03/17 01:00 40 08/03/17 00:00 42 08/02/17 23:27 98.3 47 16 142/64 (90) 95 08/02/17 23:00 42 08/02/17 22:00 46 08/02/17 21:35 94 21 08/02/17 21:00 48 08/02/17 20:00 59 08/02/17 19:40 98.3 59 16 151/62 (91) 95 08/02/17 19:00 54 08/02/17 18:00 62 08/02/17 17:00 46 08/02/17 16:00 47 08/02/17 15:00 53 08/02/17 15:00 98.4 53 18 142/65 (90) 96 08/02/17 14:00 46 08/02/17 13:00 48 08/02/17 12:00 44 08/02/17 11:30 98.0 48 18 131/62 (85) 97 08/02/17 11:00 52 08/02/17 10:00 50 I/O 08/02/17 08/02/17 08/02/17 08/03/17 08/03/17 08/03/17 07:00 15:00 23:00 07:00 15:00 23:00 Intake Total 523 ml 920 ml 720 ml Output Total 950 ml 1500 ml 1725 ml Balance -427 ml -580 ml -1005 ml Intake Oral 360 ml 920 ml 720 ml IV Total 163 ml Output Urine Total 950 ml 1500 ml 1725 ml # Bowel Movements 1 0 Result Diagram: 08/01/17 0341 08/03/17 0254 Imaging Last Impressions Lower Extremity Ultrasound 07/31/17 0000 Signed Impressions: Service Date/Time: July 20:49 - CONCLUSION: The greater saphenous veins are patent bilaterally and measured above. Abdoul Hester MD Carotid Artery Ultrasound 07/31/17 0000 Signed Impressions: Service Date/Time: July 21:09 - CONCLUSION: Mild calcified plaque at the carotid bulb regions without significant stenosis. Abdoul Hester MD Chest X-Ray 07/30/17 0948 Signed Impressions: Service Date/Time: Sunday, July 30, 2017 10:34 - CONCLUSION: No acute disease. Rodo Hansen MD Objective Remarks GENERAL: This is a well-nourished, well-developed patient, in no apparent distress. SKIN: No rashes, warm and dry CARDIOVASCULAR: Regular rhythm without murmurs, gallops, or rubs. Bradycardic RESPIRATORY: Fair air entry bilaterally. No wheezes, rales, or rhonchi. GASTROINTESTINAL: Abdomen soft, non-tender, nondistended. Positive bowel sounds MUSCULOSKELETAL: Extremities without clubbing, cyanosis, or edema. Pedal pulses appreciated. NEUROLOGICAL: Awake and alert. Moves all extremity. Normal speech.no focal neurological deficit Procedures cardiac catheterization A/P Problem List: (1) Non-STEMI (non-ST elevated myocardial infarction) ICD Code: I21.4 - Non-ST elevation (NSTEMI) myocardial infarction Status: Acute Assessment and Plan 66 years old male with history of hypertension, hyperlipidemia and Hx of DVT and PE came with worsening chest pain and elevated troponin NSTEMI. Cardiac catheterization with multivessel CAD for CABG on Friday tomorrow. Stable continue aspirin, Lopressor, statin and heparin drip Hypertension. Suboptimal control add Norvasc continue ARB and Lopressor Asymptomatic sinus bradycardia on beta-jeffery. Will continue to monitor with hold parameters on Lopressor. History of DVT and PE 10 years ago on eliquis which is currently on hold patient on heparin drip Hyperlipidemia on rosuvastatin. LDL 102. Increased Lipitor to 40 mg daily History of non-Hodgkin lymphoma in remission status post chemotherapy. Outpatient follow-up DVT prophylaxis patient on heparin drip Discharge Planning Needs bypass scheduled on Friday Zane Dawson MD Aug 03, 2017 09:12
[2017-08-03] MEDS: amLODIPine BESYLATE 5 MG TAB PO SCH (09:57)
[2017-08-03 11:28] LABS: HEMOGLOBIN A1C 4.6 % (4.3-6.0)
[2017-08-03] MEDS: HEPARIN 25,000 UNITS-D5W 250 ML - PREMIX IV PRN (17:04)
[2017-08-03] MEDS: ATORVASTATIN 20 MG TAB PO SCH (20:56)
[2017-08-03] MEDS ORDERED: SODIUM CHLORID 0.9% 500 ML IV PRN (23:15)
[2017-08-03] MEDS ORDERED: LACTATED RINGER'S 1000 ML IV PRN (23:15)
[2017-08-03] MEDS ORDERED: POVIDONE IODINE 5% (ANTISEPSIS KIT) 4 APPLICATIONS EACH NARE PRN (23:15)
[2017-08-03] MEDS ORDERED: CHLORHEXIDINE GLUCONATE 2 % 1 PACK (2 CLOTHS) TOPICAL PRN (23:15)
[2017-08-04] VITALS (18 sets, daily range): BP systolic 93–145; BP diastolic 53–79; PULSE 38–85; RESP 13–18; TEMP 97.6–99.7; O2SAT 92–95
[2017-08-04] MEDS ORDERED: HEPARIN SODIUM - SQ 10,000 UNITS/ML VIAL ONE ×2 (06:25)
[2017-08-04] MEDS ORDERED: ceFAZolin INJ 1,000 MG VIAL ONE (06:26)
[2017-08-04] MEDS ORDERED: methylPREDNISolone SOD SUCC 125 MG/2 ML VIAL ONE (06:26)
[2017-08-04] MEDS ORDERED: VANCOMYCIN HCL 1000 MG VIAL ONE (06:26)
[2017-08-04] MEDS: METOPROLOL TARTRATE 25 MG TAB PO SCH (06:36)
[2017-08-04] MEDS ORDERED: MIDAZOLAM HCL 5 MG/ML VIAL (1 ML) ONE (07:03)
[2017-08-04] MEDS ORDERED: fentaNYL CITRATE 250 MCG/5 ML AMP ONE ×2 (07:03→08:32)
[2017-08-04] MEDS ORDERED: ALBUMIN 25% INJ 50 ML IV ONE (07:26)
[2017-08-04] MEDS ORDERED: CARDIOPLEGIC IRR 2,000 ML ONE (07:26)
[2017-08-04] MEDS ORDERED: HEPARIN SODIUM - IV 10,000 UNITS/10 ML VIAL ONE (07:27)
[2017-08-04] MEDS ORDERED: SODIUM BICARBONATE 8.4% INJ 50 ML ONE (07:27)
[2017-08-04] MEDS ORDERED: CALCIUM CHLORIDE 10% SOLN 1 GRAM/10 ML SYR ONE (07:27)
[2017-08-04] MEDS ORDERED: MANNITOL INJ 100 ML ONE (07:28)
[2017-08-04] MEDS ORDERED: POTASSIUM CHLORIDE 20 MEQ/10 ML VIAL ONE (07:51)
[2017-08-04] MEDS: ASPIRIN EC 81 MG TABEC PO SCH (09:00)
[2017-08-04] MEDS: amLODIPine BESYLATE 5 MG TAB PO SCH (09:00)
[2017-08-04] MEDS: SODIUM CHLORIDE 0.9% FLUSH 10 ML FLUSH IV FLUSH SCH ×3 (09:00→21:00)
--- NOTE | 2017-08-04 10:31 | PD.OP ---
cc: Royal Morgan MD; Debo Orr MD; Patrick Briceno DO Operative Report Date of Surgery: Aug 04, 2017 Preoperative Diagnosis: (1) Non-STEMI (non-ST elevated myocardial infarction) (2) Multi-vessel coronary artery stenosis (3) Chest pain (4) SOB (shortness of breath) Postoperative Diagnosis: same Procedure: CABG x 2 Arana to LAD - good SVG to OM1 - good EVH Anesthesia: Dr. Croft Surgeon: Debo Orr Pathology Laboratory Technologist(s): RADHA Ozuna Operation and Findings: The risks, benefits, complications, treatment options, and expected outcomes were discussed with the patient. The possibilities of reaction to medication, pulmonary aspiration, perforation of viscus, bleeding, recurrent infection, the need for additional procedures, failure to diagnose a condition, and creating a complication requiring transfusion or operation were discussed with the patient. The patient concurred with the proposed plan, giving informed consent. The site of surgery properly noted/marked. The patient was taken to Operating Room, identified as Leonardo Bowie and the procedure verified as CABG, EVH. A Time Out was held and the above information confirmed. Standard monitoring lines and Cota catheter were placed. General anesthesia was induced. The patient was prepped and draped in a sterile fashion. A median sternotomy was performed and electrocautery was used to obtain hemostasis. The left internal mammary artery was procured as a pedicle from the 7th rib to the 1st rib in the usual manner. Simultaneously left greater saphenous vein was procured from the left leg using a minimally invasive endoscopic technique. The vein was prepared for anastomosis and the leg wound was irrigated and closed in 2 layers. The pericardium was opened and a pericardial sling was created using interrupted 0 silk sutures. The patient was heparinized for cardiopulmonary bypass and the distal mammary pedicle was instrumented for anastomosis. The heart was instrumented for cardiopulmonary bypass in the usual manner. Antegrade blood cardioplegia was employed. The patient was placed on cardiopulmonary bypass. An aortic cross-clamp was applied and the heart was arrested using cold blood cardioplegia. Antegrade cardioplegia was administered after he each anastomosis. After adequate arrest, the 1st circumflex marginal artery was then opened with a [place] blade and found to be a 1.5 millimeter good target. Saphenous vein was approximated to the OM1 artery using a running 7 0 Prolene suture. The graft was measured for length and orientation and was suspended from the pericardium. The distal LAD was opened with a [place] blade and found to be a 1.5 millimeter good target. The left internal mammary artery was approximated to the LAD using a running 7 0 Prolene suture. The pedicle was attached to the epicardium using interrupted 5 0 silk suture. The patient was systemically rewarmed and received a hotshot dose of warm blood cardioplegia. The aorta was vented and the proximal anastomosis to the OM1 graft was accomplished using a running 5 0 Prolene suture after creating an aortotomy was a 5 millimeter punch. The cross-clamp was removed and all proximal and distal anastomoses were examined for hemostasis. The patient was weaned from cardiopulmonary bypass. Protamine was given. There was no adverse reaction. Decannulation was carried out without incident. Wound was checked for hemostasis which was obtained using electrocautery. A 36 Bel[place]ian mediastinal and 32 Bel[place]ian left pleural chest tubes were placed and secured to the skin with 0 silk suture. The sternum was closed with stainless steel wire. The fascia was closed with 1. PDS. The subcutaneous tissue was closed using a running 2-0 Vicryl suture. The skin was closed with 4-0 Monocryl. Sterile dressings were placed. At the end of the operation, all sponge, instruments, and needle counts were correct. The patient was transferred to the CVICU in stable condition. Findings: good distal targets, marked LVH XC: 31 min CPB: 37 min Drains: mediastinal x 1 pleural x 1 Complications: none Disposition: to CVICU in stable condition Debo Orr MD Aug 04, 2017 10:31
[2017-08-04] MEDS: INSULIN REGULAR (IV INFUSION) 100 UNITS in SODIUM CHLORIDE 0.9% INJ 99 ML IV PRN (11:07)
[2017-08-04] MEDS ORDERED: LACTATED RINGER'S 1000 ML INJ 500 ML IV PRN (11:35)
--- NOTE | 2017-08-04 11:35 | HHI.FF ---
Face to Face Verification Diagnosis: (1) Non-STEMI (non-ST elevated myocardial infarction) (2) SOB (shortness of breath) (3) Chest pain (4) Multi-vessel coronary artery stenosis (5) S/P CABG x 2 Home Health Nursing Order: Signs/symptoms of disease process Medication education-adverse effect Wound care and dressing changes Nursing assessment with vital signs Instructions: Heart and Vascular Surgery patients *Special attention to sternal dressing Mandatory frequency Assess and evaluation, 4 days in a row The next week 3X week 2 times a week for 4 weeks 1 time a week for 5 weeks Schedule Heart and Vascular patients for full 60 day certification period Initial visit Review Open Heart Surgery Discharge Instructions (Sternal precautions, Activity, Elastic hose, Incision care, Driving, Incentive spirometry, Smoking, [place], Work and other) Need Betadine to paint incision Medication reconciliation Importance of follow up care/ check on appointments Make calendar record temperature daily When to call [facility] [place] nurse, review instructions, phone list Incentive Spirometry, demonstration Visit 1- Begin discharge instruction for patient family and/ or caregiver using teach back method- Signs and symptoms of infection Disease characteristics Medicines and side effects Foods and nutrition/ appetite Infection control/ hand washing/ hygiene Visit 2- Continue teaching Discharge instructions- include additional information on smoking cessation , sternal dressing (sternal vac) Visit 3- Continue teaching- Cough and deep breathing, incision monitoring. Choose my plate Visit 4- Continue teaching- Discuss limitations Discuss how they are feeling Discuss progress toward goals Remaining visits- continue teaching and monitoring For any questions please call : Friday 8am-5pm Heart & Vascular Surgery Office ( Dr. Lundy & Dr. Orr), After Hours / Nights (5pm -8am) Weekends and Holidays Please call [facility] ([facility]) Charge Nurse PREVENA Single Use Negative Wound Therapy System Caregiver Instruction Sheet 1. A Prevena dressing system was applied to the chest incision during surgery , to promote wound healing. It works via a suction device (negative pressure wound therapy) to remove low to moderate levels of exudate (drainage) and infectious materials. We recommend that the device stay in place for up to seven days, from day of surgery. 2. Day of Surgery__/06/22 Day of Removal ___08/11/17 3. The dressing should only be removed by a health child care assistant. Please arrange removal of device to coincide with Home Health visit and or with Nursing staff at Rehab 4. If skin reddening or irritation of skin occurs, or excessive drainage, please notify the Cardiovascular Surgeons office at [phone]. 5. Light showering is permissible; however the pump should be disconnected and placed in safe location, where it will not get wet. The dressing should not be exposed to direct spray or submerged in water. No bath tub / shower only. Ensure the end of the tubing attached to the dressing is facing down so that water does not enter the top of the tube. 6. To remove Prevena dressing: press purple button to turn off device / remove the suction. Then disconnect the tubing from the pump. The fixation strips should be stretched away from the skin and the dressing lifted at one corner and peeled back until it has been fully removed. 7. After removal, it is ok to shower daily using liquid dial soap and clean wash cloth, rinse and pat dry, and leave incision open to air dry. For any concerns regarding Prevena dressing, and or wounds, please contact Parisa Barrientos, patient navigator at [phone] or notify the Cardiovascular Surgeons office at [phone]. Incentive spirometry Q1 hr x 10, while awake, also use acapella device hourly whole awake Sternal Breast Bone Precautions: NO pushing or pulling, ( pt must use sternal pillow to support chest with all activities and with coughing ( takes up to 3 months breast bone to heal ) Daily incision care: ok to shower daily, no tub bath. Wash all incisions with liquid dial soap, clean wash cloth to each site, rinse and pat dry. Observe for any signs of infection, such as drainage which is dark yellow, roland, green or foul smelling. Immediately report to the surgeon any drainage from the chest incision, or legs, and for any abnormal drainage from the chest tube sites. Notify surgeon if any temp >101.5 degrees F. When specialty dressing removed/ or if you do not have one, continue to shower daily as above, then rinse and pat incision dry and paint with betadine daily x 5 days. Allow steri strips to fall off if you have any. Avoid lotions, creams, salves, oils, etc. for the first month Please see attached forms for additional instructions regarding post Open Heart specialty wound vacuum dressings. CANDELARIO or Prevena , Dressing to be removed by Nursing staff on __08/11/[address] Orr patients , please obtain CBC, BMP, PA & Lat CXR in 2 weeks, results to Dr. Orr ( prescription will be given) ( ) (Tele: [phone]) , F/U appointment: as per DC instructions: PCP in 2 weeks, CV surgeon 2 weeks, Broadcast Transmitter Operator 3-4 weeks For any questions regarding incisions/ dressing / meds / post op care or above Symptoms, Friday 8am-5pm Heart & Vascular Surgery Office ( Dr. Lundy & Dr. Orr), After Hours / Nights (5pm -8am) Weekends and Holidays Please call [facility] ([facility]) Charge Nurse I have seen patient Leonardo Bowie on 08/04/17. My clinical findings support the need for the requested home health care services because: Deconditioned w/ increased weakness I certify that my clinical findings support that this patient is homebound because: Post-op weakness Shu Menjivar Aug 04, 2017 11:35
[2017-08-04] MEDS ORDERED: MAGNESIUM SULFATE INJ 2 GM in SODIUM CHLORIDE 0.9% INJ 100 ML IV PRN ×4 (11:45)
[2017-08-04] MEDS ORDERED: POTASSIUM CHLORIDE 20 MEQ CONTROLLED RELEASE TAB PO PRN ×2 (11:45)
[2017-08-04] MEDS ORDERED: SODIUM BICARBONATE 8.4% SOLN 50 MEQ/50 ML VIAL IV PUSH PRN ×2 (11:45)
[2017-08-04] MEDS ORDERED: INSULIN REGULAR (IV INFUSION) 100 UNITS in SODIUM CHLORIDE 0.9% INJ 99 ML IV PRN (11:45)
[2017-08-04] MEDS ORDERED: CALCIUM CHLORIDE INJ 1 GM in SODIUM CHLORIDE 0.9% INJ 100 ML IV PRN (11:45)
[2017-08-04] MEDS ORDERED: ACETAMINOPHEN 325 MG TAB PO PRN (11:45)
[2017-08-04] MEDS ORDERED: DEXTROSE 50% IN WATER 50 ML VIAL(D50) IV PUSH PRN (11:45)
[2017-08-04] MEDS ORDERED: Post-op Orders (for Pharmacy) OTHER ONE (11:45)
[2017-08-04] MEDS ORDERED: ACETAMINOPHEN 650 MG SUPP RECTAL PRN (11:45)
[2017-08-04] MEDS ORDERED: SODIUM CHLORIDE 0.9% FLUSH 10 ML FLUSH IV FLUSH PRN (11:45)
[2017-08-04] MEDS ORDERED: RESP: ALBUTEROL 2.5 MG/IPRATROPIUM 0.5 MG NEB (PRN) NEB (11:45)
[2017-08-04] MEDS ORDERED: ALBUMIN 5% INJ 250 ML IV PRN (11:45)
[2017-08-04] MEDS ORDERED: RESP: RACEPINEPHRINE 2.25% 0.5 ML NEB NEB PRN (11:45)
[2017-08-04] MEDS ORDERED: METOPROLOL TARTRATE 5 MG/5 ML VIAL IV PUSH PRN (11:45)
[2017-08-04] MEDS ORDERED: DEXMEDETOMIDINE INJ 200 MCG in SODIUM CHLORIDE 0.9% INJ 50 ML IV PRN (11:45)
[2017-08-04] MEDS ORDERED: POTASSIUM CHLOR 20 MEQ PREMIX 100 ML IV PRN ×3 (11:45)
[2017-08-04] MEDS ORDERED: hydrALAZINE HCL 20 MG/ML VIAL IV PUSH PRN (11:45)
[2017-08-04] MEDS ORDERED: CALCIUM CHLORIDE 10% 1 GRAM/10 ML VIAL IV PUSH PRN (11:45)
[2017-08-04] MEDS ORDERED: PROTAMINE SULFATE 250 MG/25 ML VIAL IV ONE (12:00)
[2017-08-04] MEDS ORDERED: NITROGLYCERIN 50 MG/DEXTROSE 5% SOLN 250 ML BTL IV ONE (12:00)
[2017-08-04] MEDS ORDERED: TRANEXAMIC ACID INJ 1,000 MG/10 ML AMP IV ONE (12:00)
[2017-08-04] MEDS ORDERED: DEXMEDETOMIDINE HCL 200 MCG/2 ML VIAL IV ONE (12:00)
[2017-08-04] MEDS ORDERED: VECURONIUM BROMIDE 10 MG VIAL IV ONE (12:00)
[2017-08-04] MEDS ORDERED: ePHEDrine/NS 25 MG/5 ML SYRINGE IV ONE (12:00)
[2017-08-04] MEDS ORDERED: LIDOCAINE HCL 1% PF 5 ML SYRINGE OTHER ONE (12:00)
[2017-08-04] MEDS ORDERED: PHENYLEPHRINE HCL 10 MG/ML VIAL IV ONE (12:00)
[2017-08-04] MEDS ORDERED: GLYCOPYRROLATE 0.2 MG/ML VIAL IV ONE (12:00)
[2017-08-04] MEDS ORDERED: MAGNESIUM SULFATE 1 GM/2 ML VIAL IV ONE (12:00)
[2017-08-04] MEDS ORDERED: HEPARIN SODIUM - SQ 10,000 UNITS/ML VIAL OTHER ONE (12:00)
[2017-08-04] MEDS ORDERED: PHENYLEPH/NS 1000 MCG/10 ML SYR IV ONE (12:00)
--- NOTE | 2017-08-04 12:18 | RADRPT ---
EXAM DATE/TIME: 08/04/2017 11:50 [place] COMPARISON: CHEST PA & LAT, July 30, 2017, 10:34. INDICATIONS : S/p cabg. MEDICAL HISTORY : Hypertension. Hypercholesterolemia. pulmonary edema, non-hodgekin's lymphoma, chemotherapy SURGICAL HISTORY : cleve filter, port placement. ENCOUNTER: Initial ACUITY: 4 - 6 days PAIN SCORE: Non-responsive. LOCATION: Bilateral chest FINDINGS: The ET tube, left subclavian line, nasogastric tube, left chest tube and mediastinal drain are all in good position. The lungs demonstrate minimal left basilar atelectasis. The patient is post median st ernotomy. The heart is normal in size. CONCLUSION: 1. Stable postoperative chest. Mt Jenkins MD on August 04, 2017 at 12:14 Board Certified Radiologist. This report was verified electronically.
[2017-08-04] MEDS: ACETAMINOPHEN 1000 MG/100 ML 100 ML IV SCH ×3 (12:22→23:45)
[2017-08-04] MEDS: RESP: ALBUTEROL 2.5 MG/IPRATROPIUM 0.5 MG NEB (SCH) NEB ×2 (14:34→21:29)
[2017-08-04] MEDS: ONDANSETRON HCL 4 MG/2 ML VIAL IV PUSH PRN (18:28)
--- NOTE | 2017-08-04 18:43 | PD.CARD.PN ---
Subjective Subjective Remarks Up to the chair, extubated Post-CABG No vasopressors Objective Medications Current Medications Medications (Trade) Dose Ordered Sig/Rae Route Start Time Stop Time Status Last Admin (Tylenol) 650 mg Q6H PRN PO 07/30/17 12:30 (Colace) 100 mg BID PRN PO 07/30/17 12:30 08/01/17 20:39 (Vasotec Inj) 1.25 mg Q6H PRN IV PUSH 07/30/17 20:30 07/30/17 20:54 (Ecotrin Ec) 81 mg DAILY PO 08/01/17 09:00 08/03/17 08:43 (Zofran Inj) 4 mg Q6H PRN IVP 07/31/17 15:00 (Percocet 5-325 Mg) 1 tab Q4H PRN PO 07/31/17 15:00 (NS Flush) 2 ml BID IV FLUSH 07/31/17 21:00 08/03/17 08:43 (NS Flush) 2 ml UNSCH PRN IV FLUSH 07/31/17 17:00 Papaverine HCl 60 mg/Nitroglycerin 100 mcg/Diltiazem HCl 100 mg/Sodium Chloride 100 ml @ 0 mls/hr EXTRUDER OPERATOR MULTIPLE IRRIGATION 07/31/17 17:00 08/07/17 16:59 08/04/17 10:31 Cefazolin Sodium 500 mg/Sodium Chloride 505 ml @ 0 mls/hr EXTRUDER OPERATOR MULTIPLE IRRIGATION 07/31/17 17:00 08/07/17 16:59 08/04/17 10:24 Cefazolin Sodium 2000 mg/Sodium Chloride 120 ml @ 240 mls/hr EXTRUDER OPERATOR MULTIPLE IV 07/31/17 17:00 08/07/17 16:59 08/04/17 10:22 (Lopressor) 12.5 mg EXTRUDER OPERATOR MULTIPLE PO 07/31/17 17:00 08/07/17 16:59 (Hibiclens 4% Top Soln) 1 applic EXTRUDER OPERATOR MULTIPLE TOPICAL 07/31/17 17:00 08/07/17 16:59 08/03/17 20:57 Insulin Human Regular 100 units/ Sodium Chloride 100 ml @ 3 mls/hr TITRATE PRN IV 07/31/17 17:00 08/07/17 16:59 08/04/17 11:07 (D50w (Vial) Inj) 50 ml UNSCH PRN IV PUSH 07/31/17 17:00 (Pill Splitter) 1 ea UNSCH PRN OTHER 07/31/17 17:15 (Lipitor) 40 mg HS PO 08/01/17 21:00 08/03/17 20:56 (Norvasc) 5 mg DAILY PO 08/03/17 09:15 08/03/17 09:57 Lactated Ringer's 1,000 ml @ 30 mls/hr Q24H PRN IV 08/03/17 23:15 08/06/17 23:14 Sodium Chloride 500 ml @ 30 mls/hr [id number] PRN IV 08/03/17 23:15 08/06/17 23:14 (Betadine 5% Antisepsis Kit) 1 applic EXTRUDER OPERATOR MULTIPLE PRN EACH NARE 08/03/17 23:15 08/06/17 23:14 (Chlorhexidine 2% Cloth) 3 pack EXTRUDER OPERATOR MULTIPLE PRN TOPICAL 08/03/17 23:15 08/06/17 23:14 (NS Flush) 2 ml BID IV FLUSH 08/04/17 21:00 (NS Flush) 2 ml UNSCH PRN IV FLUSH 08/04/17 11:45 Dexmedetomidine HCl 200 mcg/ Sodium Chloride 52 ml @ 5.51 mls/hr TITRATE PRN IV 08/04/17 11:45 Albumin Human 250 ml @ 250 mls/hr UNSCH PRN IV 08/04/17 11:45 08/04/17 17:19 Lactated Ringer's 500 ml @ 500 mls/hr Q1H PRN IV 08/04/17 11:35 Cefazolin Sodium 1000 mg/Sodium Chloride 100 ml @ 200 mls/hr Q8H IV 08/04/17 18:00 08/06/17 02:29 08/04/17 18:29 (Aspirin Chew) 81 mg DAILY PO 08/05/17 09:00 (Protonix) 40 mg DAILY@06 PO 08/05/17 06:00 (Cordarone) 200 mg Q12HR PO 08/04/17 21:00 (Tylenol) 650 mg Q4H PRN PO 08/04/17 11:45 (Tylenol Supp) 650 mg Q4H PRN RECTAL 08/04/17 11:45 Acetaminophen 100 ml @ 400 mls/hr Q6H IV 08/04/17 11:45 08/05/17 05:59 08/04/17 17:20 (fentaNYL INJ) 25 mcg Q1H PRN IV PUSH 08/04/17 11:45 08/04/17 14:20 (Zofran Inj) 4 mg Q6H PRN IV PUSH 08/04/17 11:45 08/04/17 18:28 (Apresoline Inj) 10 mg Q4H PRN IV PUSH 08/04/17 11:45 (Lopressor Inj) 2.5 mg Q1H PRN IV PUSH 08/04/17 11:45 Potassium Chloride 100 ml @ 50 mls/hr UNSCH PRN IV 08/04/17 11:45 Potassium Chloride 100 ml @ 50 mls/hr UNSCH PRN IV 08/04/17 11:45 Potassium Chloride 100 ml @ 50 mls/hr UNSCH PRN IV 08/04/17 11:45 (KCl) 20 meq UNSCH PRN PO 08/04/17 11:45 (KCl) 40 meq UNSCH PRN PO 08/04/17 11:45 Magnesium Sulfate 2 gm/Sodium Chloride 104 ml @ 100 mls/hr UNSCH PRN IV 08/04/17 11:45 Magnesium Sulfate 2 gm/Sodium Chloride 104 ml @ 50 mls/hr UNSCH PRN IV 08/04/17 11:45 Calcium Chloride 1 gm/Sodium Chloride 110 ml @ 100 mls/hr UNSCH PRN IV 08/04/17 11:45 (Calcium Chloride Inj) 0.5 gm UNSCH PRN IV PUSH 08/04/17 11:45 Insulin Human Regular 100 units/ Sodium Chloride 100 ml @ 3 mls/hr TITRATE PRN IV 08/04/17 11:45 (D50w (Vial) Inj) 50 ml UNSCH PRN IV PUSH 08/04/17 11:45 (Sodium Bicarbonate 8.4% Inj) 50 meq UNSCH PRN IV PUSH 08/04/17 11:45 (Sodium Bicarbonate 8.4% Inj) 100 meq UNSCH PRN IV PUSH 08/04/17 11:45 (Duoneb Neb) 1 ampule Q6HR NEB NEB 08/04/17 16:00 08/04/17 14:34 (Duoneb Neb) 1 ampule Q2HR NEB PRN NEB 4/2/18 11:45 Vital Signs / I&O Vital Signs Date Time Temp Pulse Resp B/P (MAP) Pulse Ox O2 Delivery O2 Flow Rate FiO2 08/04/17 15:00 76 08/04/17 15:00 94 Nasal Cannula 6.00 08/04/17 15:00 98.9 85 16 107/79 (88) 93 142/70 (94) 08/04/17 12:29 94 Nasal Cannula 6 08/04/17 12:29 94 Nasal Cannula 6.00 08/04/17 12:29 94 Nasal Cannula 6.00 08/04/17 12:14 93 40 08/04/17 12:00 92 50 08/04/17 12:00 50 08/04/17 11:45 50 08/04/17 11:45 94 Mechanical Ventilator 50 08/04/17 11:30 40 08/04/17 11:28 92 40 08/04/17 11:11 94 60 08/04/17 11:07 94 Mechanical Ventilator 60 08/04/17 11:07 97.6 79 13 93/63 (73) 94 109/53 (71) 08/04/17 11:07 60 08/04/17 11:07 68 08/04/17 11:07 98.6 08/04/17 06:00 50 08/04/17 05:00 72 08/04/17 04:00 63 08/04/17 03:57 98.1 45 16 111/55 (73) 95 08/04/17 03:00 46 08/04/17 02:00 40 08/04/17 01:00 46 08/04/17 00:00 38 08/03/17 23:31 98.1 44 15 128/62 (84) 96 08/03/17 23:00 43 08/03/17 22:00 50 08/03/17 21:00 60 08/03/17 20:45 93 21 08/03/17 20:00 60 08/03/17 19:39 98.8 57 16 155/70 (98) 95 08/03/17 19:00 58 I/O 08/03/17 08/03/17 08/03/17 08/04/17 08/04/17 08/04/17 07:00 15:00 23:00 07:00 15:00 23:00 Intake Total 720 ml 920 ml 376 ml 3850 ml 1620 ml Output Total 1725 ml 2400 ml 1350 ml 775 ml 925 ml Balance -1005 ml -1480 ml -974 ml 3075 ml 695 ml Intake Oral 720 ml 920 ml 240 ml 120 ml IV Total 136 ml 100 ml 1500 ml Autotransfusion 750 ml Other 3000 ml Output Urine Total 1725 ml 2400 ml 1350 ml 400 ml 725 ml Chest Tube Drainage Total 200 ml Estimated Blood Loss 375 ml # Bowel Movements 0 1 0 Physical Exam GENERAL: NAD, AAOx3 SKIN: Warm and dry. HEAD: Atraumatic. Normocephalic. EYES: Pupils equal and round. No scleral icterus. No injection or drainage. ENT: No nasal bleeding or discharge. Mucous membranes pink and moist. NECK: Trachea midline. No JVD. CARDIOVASCULAR: Regular rate and rhythm. Sternotomy covered RESPIRATORY: No accessory muscle use. Clear to auscultation. Breath sounds equal bilaterally. GASTROINTESTINAL: Abdomen soft, non-tender, nondistended. Hepatic and splenic margins not palpable. MUSCULOSKELETAL: Extremities without clubbing, cyanosis, or edema. No obvious deformities. Right radial no hematoma, neurovascularly intact distally NEUROLOGICAL: Awake and alert. No obvious cranial nerve deficits. Motor grossly within normal limits. Five out of 5 muscle strength in the arms and legs. Normal speech. PSYCHIATRIC: Appropriate mood and affect; insight and judgment normal. Laboratory Laboratory Tests Test 08/04/17 04:05 Activated Partial Thromboplast Time 36.3 SEC Imaging Last 24 hours Impressions Chest X-Ray 08/04/17 0000 Signed Impressions: Service Date/Time: Friday, August 04, 2017 11:50 - CONCLUSION: 1. Stable postoperative chest. Mt Jenkins MD Assessment and Plan Problem List: (1) Non-STEMI (non-ST elevated myocardial infarction) ICD Codes: I21.4 - Non-ST elevation (NSTEMI) myocardial infarction Status: Acute (2) Chest pain ICD Codes: R07.9 - Chest pain, unspecified (3) SOB (shortness of breath) ICD Codes: R06.02 - Shortness of breath (4) Multi-vessel coronary artery stenosis ICD Codes: I25.10 - Atherosclerotic heart disease of [place] coronary artery without angina pectoris Assessment and Plan 1) NSTEMI/MVCAD s/p CABGx2 POD #0 HART to LAD SVG to OM1 2) EF 50-55% Patrick Briceno DO Aug 04, 2017 18:43
[2017-08-04] MEDS: AMIODARONE 200 MG TAB PO SCH (20:42)
[2017-08-04] MEDS: ATORVASTATIN 20 MG TAB PO SCH (20:43)
[2017-08-05] VITALS (11 sets, daily range): BP systolic 133–179; BP diastolic 55–78; PULSE 60–82; RESP 16–22; TEMP 97.9–100.3; O2SAT 92–97
[2017-08-05] MEDS: RESP: ALBUTEROL 2.5 MG/IPRATROPIUM 0.5 MG NEB (SCH) NEB ×4 (03:32→19:35)
--- NOTE | 2017-08-05 03:52 | RADRPT ---
EXAM DATE/TIME: 08/05/2017 02:42 [facility] COMPARISON: CHEST SINGLE AP, August 04, 2017, 11:50. INDICATIONS : Short of breath. MEDICAL HISTORY : Hypertension. Hypercholesterolemia. pulmonary edema, non-hodgekin's lymphoma, chemotherapy SURGICAL HISTORY : CABG. cleve filter, port placement. ENCOUNTER: Subsequent ACUITY: 4 - 6 days PAIN SCORE: 0/10 LOCATION: Bilateral chest FINDINGS: There has been interval extubation. There's been removal of nasogastric tube. Midline chest tube and left opacity tube remain in place. Left subclavian central line remains in place. There is mild bibas ilar atelectasis and slight central vascular congestion. Cardiac contours are grossly satisfactory. CONCLUSION: Interval extubation and removal of NG tube. Stable aeration. Abdoul Hill MD on August 05, 2017 at 3:48 Board Certified Radiologist. This report was verified electronically.
[2017-08-05 04:31] LABS: HEMATOCRIT 36.9 % (39.0-51.0); HEMOGLOBIN 12.6 GM/DL (13.0-17.0); MEAN CELL VOLUME 88.7 FL (80.0-100.0); MEAN CORPUSCULAR HEMOGLOBIN 30.2 PG (27.0-34.0); MEAN CORPUSCULAR HGB CONC 34.1 % (32.0-36.0); MEAN PLATELET VOLUME 8.1 FL (7.0-11.0); PLATELET COUNT 114 TH/MM3 (150-450); RED BLOOD COUNT 4.16 MIL/MM3 (4.50-5.90); WHITE BLOOD COUNT 12.5 TH/MM3 (4.0-11.0)
[2017-08-05 04:46] LABS: BICARBONATE 24.1 MEQ/L (21.0-32.0); CALCIUM 8.1 MG/DL (8.5-10.1); CREATININE 0.82 MG/DL (0.60-1.30); MAGNESIUM 2.2 MG/DL (1.5-2.5)
[2017-08-05] MEDS: ACETAMINOPHEN 1000 MG/100 ML 100 ML IV SCH (05:45)
[2017-08-05] MEDS: PANTOPRAZOLE SOD 40 MG DELAYED RELEASE TAB PO SCH (06:00)
[2017-08-05] MEDS: INSULIN REGULAR (IV INFUSION) 100 UNITS in SODIUM CHLORIDE 0.9% INJ 99 ML IV PRN (08:43)
[2017-08-05] MEDS: ASPIRIN EC 81 MG TABEC PO SCH (08:44)
[2017-08-05] MEDS: ASPIRIN 81 MG CHEW TAB PO SCH (08:44)
[2017-08-05] MEDS: AMIODARONE 200 MG TAB PO SCH ×2 (08:44→20:19)
[2017-08-05] MEDS: SODIUM CHLORIDE 0.9% FLUSH 10 ML FLUSH IV FLUSH SCH ×3 (08:45→20:19)
[2017-08-05] MEDS ORDERED: BISACODYL 10 MG SUPP RECTAL PRN (09:30)
[2017-08-05] MEDS ORDERED: DEXTROSE 50% IN WATER 50 ML VIAL(D50) IV PUSH PRN (09:30)
[2017-08-05] MEDS ORDERED: GLUCAGON 1 MG/ML VIAL OTHER PRN (09:30)
[2017-08-05] MEDS ORDERED: SOD PHOSPHATE/SOD BIPHOSPHATE (ADULT) ENEMA 133ML RECTAL PRN (09:30)
[2017-08-05] MEDS: KETOROLAC TROMETHAMINE 30 MG/ML (IVP) VIAL IV PUSH PRN ×3 (09:47→21:55)
[2017-08-05] MEDS ORDERED: INSULIN DETEMIR 100 UNITS/ML VIAL SQ ONE (10:15)
[2017-08-05] MEDS: INSULIN ASPART SUPPLEMENTAL SCALE SQ SCH ×4 (10:21→21:54)
[2017-08-05] MEDS: DOCUSATE SODIUM 100 MG CAP PO SCH ×2 (10:34→20:19)
[2017-08-05] MEDS: POTASSIUM CHLORIDE 20 MEQ CONTROLLED RELEASE TAB PO SCH ×2 (10:34→20:19)
[2017-08-05] MEDS: METOPROLOL TARTRATE 25 MG TAB PO SCH ×2 (10:34→20:19)
[2017-08-05] MEDS: FUROSEMIDE 40 MG/4 ML VIAL IV PUSH SCH ×2 (10:35→18:15)
--- NOTE | 2017-08-05 10:36 | RSPPFT ---
DATE OF PROCEDURE: 08/01/17 COMMENTS: Spirometry with FVC of 4.0 predicted 4.2, FEV1 of 3.0 predicted 3.3, FEV1/FVC ratio at 75% predicted 79%. IMPRESSION: On the basis of the above, patient has flow values within the predicted range.
--- NOTE | 2017-08-05 11:53 | PD.CARD.PN ---
Subjective Subjective Remarks Up to the chair Doing well Plan on walking with PT this afternoon Objective Medications Current Medications Medications (Trade) Dose Ordered Sig/Rea Route Start Time Stop Time Status Last Admin (Tylenol) 650 mg Q6H PRN PO 07/30/17 12:30 (Percocet 5-325 Mg) 1 tab Q4H PRN PO 07/31/17 15:00 (Pill Splitter) 1 ea UNSCH PRN OTHER 07/31/17 17:15 (Lipitor) 40 mg HS PO 08/01/17 21:00 08/04/17 20:43 (Norvasc) 5 mg DAILY PO 08/03/17 09:15 08/03/17 09:57 (NS Flush) 2 ml BID IV FLUSH 08/04/17 21:00 08/04/17 21:00 (NS Flush) 2 ml UNSCH PRN IV FLUSH 08/04/17 11:45 Cefazolin Sodium 1000 mg/Sodium Chloride 100 ml @ 200 mls/hr Q8H IV 08/04/17 18:00 08/06/17 02:29 08/05/17 08:44 (Aspirin Chew) 81 mg DAILY PO 08/05/17 09:00 (Protonix) 40 mg DAILY@06 PO 08/05/17 06:00 08/05/17 06:00 (Cordarone) 200 mg Q12HR PO 08/04/17 21:00 08/05/17 08:44 (Zofran Inj) 4 mg Q6H PRN IV PUSH 08/04/17 11:45 08/04/17 18:28 (Apresoline Inj) 10 mg Q4H PRN IV PUSH 08/04/17 11:45 (Duoneb Neb) 1 ampule Q2HR NEB PRN NEB 08/04/17 11:45 (Duoneb Neb) 1 ampule Q6HR WHILE AWAKE NEB NEB 08/05/17 14:00 08/07/17 13:59 (Colace) 100 mg BID PO 08/05/17 09:30 08/05/17 10:34 (Theragran M Tab) 1 tab DAILY PO 08/06/17 09:00 (Milk Of Magnesia Liq) 30 ml DAILY PO 08/06/17 09:00 (Dulcolax Supp) 10 mg UNSCH PRN RECTAL 08/05/17 09:30 (Miralax) 17 gm DAILY PO 08/06/17 09:00 (Senokot) 8.6 mg HS PO 08/05/17 21:00 (Fleets Enema (Adult)) 118 ml UNSCH PRN RECTAL 08/05/17 09:30 (Lopressor) 25 mg BID PO 08/05/17 09:30 08/05/17 10:34 (NovoLOG SUPPLEMENTAL SCALE) 1 02,06,10,14,18,22 SQ 08/05/17 10:00 08/05/17 10:21 (D50w (Vial) Inj) 50 ml UNSCH PRN IV PUSH 08/05/17 09:30 (Glucagon Inj) 1 mg UNSCH PRN OTHER 08/05/17 09:30 (Lasix Inj) 40 mg BID@ IV PUSH 08/05/17 09:30 08/05/17 10:35 (KCl) 20 meq Q12HR PO 08/05/17 09:30 08/05/17 10:34 (Toradol Inj) 15 mg Q6H PRN IV PUSH 08/05/17 09:45 08/07/17 09:44 08/05/17 09:47 Vital Signs / I&O Vital Signs Date Time Temp Pulse Resp B/P (MAP) Pulse Ox O2 Delivery O2 Flow Rate FiO2 08/05/17 07:39 96 Nasal Cannula 4.00 08/05/17 07:00 96 Nasal Cannula 4.00 08/05/17 03:00 98.9 82 22 133/69 (90) 94 168/55 (92) 08/05/17 03:00 94 Nasal Cannula 6.00 08/05/17 03:00 82 08/05/17 00:15 18 08/04/17 23:00 80 08/04/17 23:00 93 Nasal Cannula 6.00 08/04/17 23:00 99.4 80 18 129/68 (88) 93 145/58 (87) 08/04/17 22:00 20 08/04/17 21:50 18 08/04/17 21:31 94 Nasal Cannula 4.00 08/04/17 19:00 99.7 69 18 112/66 (81) 95 141/56 (84) 08/04/17 19:00 69 08/04/17 19:00 95 Nasal Cannula 6.00 08/04/17 15:00 76 08/04/17 15:00 94 Nasal Cannula 6.00 08/04/17 15:00 98.9 85 16 107/79 (88) 93 142/70 (94) 08/04/17 12:29 94 Nasal Cannula 6 08/04/17 12:29 94 Nasal Cannula 6.00 08/04/17 12:29 94 Nasal Cannula 6.00 08/04/17 12:14 93 40 08/04/17 12:00 92 50 08/04/17 12:00 50 I/O 08/04/17 08/04/17 08/04/17 08/05/17 08/05/17 08/05/17 07:00 15:00 23:00 07:00 15:00 23:00 Intake Total 376 ml 3850 ml 1720 ml 960 ml 100 ml Output Total 1350 ml 775 ml 925 ml 910 ml Balance -974 ml 3075 ml 795 ml 50 ml 100 ml Intake Oral 240 ml 120 ml 660 ml IV Total 136 ml 100 ml 1600 ml 300 ml 100 ml Autotransfusion 750 ml Other 3000 ml Output Urine Total 1350 ml 400 ml 725 ml 710 ml Chest Tube Drainage Total 200 ml 200 ml Estimated Blood Loss 375 ml # Bowel Movements 0 0 Physical Exam GENERAL: NAD, AAOx3 SKIN: Warm and dry. HEAD: Atraumatic. Normocephalic. EYES: Pupils equal and round. No scleral icterus. No injection or drainage. ENT: No nasal bleeding or discharge. Mucous membranes pink and moist. NECK: Trachea midline. No JVD. CARDIOVASCULAR: Regular rate and rhythm. Sternotomy covered RESPIRATORY: No accessory muscle use. Clear to auscultation. Breath sounds equal bilaterally. GASTROINTESTINAL: Abdomen soft, non-tender, nondistended. Hepatic and splenic margins not palpable. MUSCULOSKELETAL: Extremities without clubbing, cyanosis, or edema. No obvious deformities. Right radial no hematoma, neurovascularly intact distally NEUROLOGICAL: Awake and alert. No obvious cranial nerve deficits. Motor grossly within normal limits. Five out of 5 muscle strength in the arms and legs. Normal speech. PSYCHIATRIC: Appropriate mood and affect; insight and judgment normal. Laboratory Laboratory Tests Test 08/05/17 04:00 White Blood Count 12.5 TH/MM3 Red Blood Count 4.16 MIL/MM3 Hemoglobin 12.6 GM/DL Hematocrit 36.9 % Mean Corpuscular Volume 88.7 FL Mean Corpuscular Hemoglobin 30.2 PG Mean Corpuscular Hemoglobin Concent 34.1 % Red Cell Distribution Width 14.0 % Platelet Count 114 TH/MM3 Mean Platelet Volume 8.1 FL Blood Urea Nitrogen 15 MG/DL Creatinine 0.82 MG/DL Random Glucose 113 MG/DL Calcium Level 8.1 MG/DL Magnesium Level 2.2 MG/DL Sodium Level 140 MEQ/L Potassium Level 4.4 MEQ/L Chloride Level 109 MEQ/L Carbon Dioxide Level 24.1 MEQ/L Anion Gap 7 MEQ/L Estimat Glomerular Filtration Rate 93 ML/MIN Imaging Last 24 hours Impressions Chest X-Ray 08/05/17 0500 Signed Impressions: Service Date/Time: Saturday, August 05, 2017 02:42 - CONCLUSION: Interval extubation and removal of NG tube. Stable aeration. Abdoul Hill MD Assessment and Plan Problem List: (1) Non-STEMI (non-ST elevated myocardial infarction) ICD Codes: I21.4 - Non-ST elevation (NSTEMI) myocardial infarction Status: Acute (2) Chest pain ICD Codes: R07.9 - Chest pain, unspecified (3) SOB (shortness of breath) ICD Codes: R06.02 - Shortness of breath (4) Multi-vessel coronary artery stenosis ICD Codes: I25.10 - Atherosclerotic heart disease of [place] coronary artery without angina pectoris Assessment and Plan 1) NSTEMI/MVCAD s/p CABGx2 POD #1 HART to LAD SVG to OM1 2) EF 50-55% 3) HTN Plan on increasing Beta jeffery therapy, Norvasc if needed Patrick Briceno DO Aug 05, 2017 11:53
--- NOTE | 2017-08-05 11:59 | PD.CAR.PN ---
CVT Progress Note CVT: POD #: 1 Subjective/Hospital Course: A 66-year-old male who presented to the emergency room due to chest pain, shortness of breath. He has had this off and on for the past month or two. He sees Dr. Morgan and was supposed to see him in a week or so, said the pain was getting worse, 4/10, squeezing in nature. He decided to come into the emergency room. His troponin was 0.15. Because of this, he underwent cardiac catheterization by Dr. Briceno, which showed left main disease of 70%, proximal LAD 90%, the mid-distal LAD 100%. The diagonal was 50%. The circ was 60%, the OM 50%, the RCA 30%. Echocardiogram was done which showed an ejection fraction of 50%, mildly dilated left ventricle. Trace tricuspid regurgitation, trace mitral valve regurgitation. We were consulted to evaluate for coronary artery bypass grafting. PAST MEDICAL HISTORY: Hypertension, hyperlipidemia, history of DVT, pulmonary embolism in the past, has been on Eliquis which has since been stopped. He has history of non-Hodgkin's lymphoma, status post chemotherapy. His last dose was about 5-6 years ago. He is followed by Dr. Ajay Dubon in [place]. PAST SURGICAL HISTORY: Include [place] IVC filter, bilateral cataract surgery , melanoma excision on the nose. 08/03/17 Denies chest pain 4/2 surgery : CABG x 2, HART to LAD - good, SVG to OM1 - good, L EVH extubated after surgery crystalloid 3000cc, 750cc cell saver, 1500cc EBL 4/3 doing well up in chair, on nasal cannula BP elevated , resume BB, diuresis transfer to stepdown unit pulm toileting Objective: GENERAL: A&O x 3 SKIN: Warm and dry. prevena dressing to chest HEAD: Normocephalic. EYES: No scleral icterus. No injection or drainage. NECK: Supple, trachea midline. No JVD or lymphadenopathy. CARDIOVASCULAR: Regular rate and rhythm without murmurs, gallops, + rubs. mild edema RESPIRATORY: Breath sounds equal bilaterally. No accessory muscle use. diminished in bases , chest tube drained 200cc/ 12 hrs GASTROINTESTINAL: Abdomen soft, non-tender, nondistended. MUSCULOSKELETAL: No cyanosis, or edema. BACK: Nontender without obvious deformity. No CVA tenderness. Vital Signs Date Time Temp Pulse Resp B/P (MAP) Pulse Ox O2 Delivery O2 Flow Rate FiO2 08/05/17 07:39 96 Nasal Cannula 4.00 08/05/17 07:00 96 Nasal Cannula 4.00 08/05/17 03:00 98.9 82 22 133/69 (90) 94 168/55 (92) 08/05/17 03:00 94 Nasal Cannula 6.00 08/05/17 03:00 82 08/05/17 00:15 18 08/04/17 23:00 80 08/04/17 23:00 93 Nasal Cannula 6.00 08/04/17 23:00 99.4 80 18 129/68 (88) 93 145/58 (87) 08/04/17 22:00 20 08/04/17 21:50 18 08/04/17 21:31 94 Nasal Cannula 4.00 08/04/17 19:00 99.7 69 18 112/66 (81) 95 141/56 (84) 08/04/17 19:00 69 08/04/17 19:00 95 Nasal Cannula 6.00 08/04/17 15:00 76 08/04/17 15:00 94 Nasal Cannula 6.00 08/04/17 15:00 98.9 85 16 107/79 (88) 93 142/70 (94) 08/04/17 12:29 94 Nasal Cannula 6 08/04/17 12:29 94 Nasal Cannula 6.00 08/04/17 12:29 94 Nasal Cannula 6.00 08/04/17 12:14 93 40 08/04/17 12:00 92 50 08/04/17 12:00 50 Labs: Laboratory Tests Test 08/05/17 04:00 White Blood Count 12.5 TH/MM3 (4.0-11.0) Red Blood Count 4.16 MIL/MM3 (4.50-5.90) Hemoglobin 12.6 GM/DL (13.0-17.0) Hematocrit 36.9 % (39.0-51.0) Mean Corpuscular Volume 88.7 FL (80.0-100.0) Mean Corpuscular Hemoglobin 30.2 PG (27.0-34.0) Mean Corpuscular Hemoglobin Concent 34.1 % (32.0-36.0) Red Cell Distribution Width 14.0 % (11.6-17.2) Platelet Count 114 TH/MM3 (150-450) Mean Platelet Volume 8.1 FL (7.0-11.0) Blood Urea Nitrogen 15 MG/DL (7-18) Creatinine 0.82 MG/DL (0.60-1.30) Random Glucose 113 MG/DL (74-106) Calcium Level 8.1 MG/DL (8.5-10.1) Magnesium Level 2.2 MG/DL (1.5-2.5) Sodium Level 140 MEQ/L (136-145) Potassium Level 4.4 MEQ/L (3.5-5.1) Chloride Level 109 MEQ/L (98-107) Carbon Dioxide Level 24.1 MEQ/L (21.0-32.0) Anion Gap 7 MEQ/L (5-15) Estimat Glomerular Filtration Rate 93 ML/MIN (>89) Result Diagram: 08/05/17 0400 08/05/17 0400 Telemetry: NSR (1) Non-STEMI (non-ST elevated myocardial infarction) (2) Chest pain (3) S/P CABG x 2 Plan: ASA, statin , BB, amiodarone OOB, ambulate wean 02 gentle diuresis CM to eval for HHC at discharge (4) SOB (shortness of breath) (5) Multi-vessel coronary artery stenosis (6) Hx of non-Hodgkin's lymphoma (7) Hx of deep venous thrombosis Plan: resume eliquis when chest tube out Shu Menjivar Aug 05, 2017 11:59
[2017-08-05] MEDS: amLODIPine BESYLATE 5 MG TAB PO SCH (12:08)
--- NOTE | 2017-08-05 16:14 | EKG ---
Date Performed: 08/05/2017 Time Performed: 04:17:42 PTAGE: 66 years EKG: Sinus rhythm . Low QRS voltages in precordial leads Borderline ECG PREVIOUS TRACING 07/27/17 Rate has increased since prior tracing. R-waves in V2 and V3 are more prominent (normalization). DOCTOR: William Wade Interpretating Date/Time 08/05/2017 16:10:20
[2017-08-05] MEDS: SENNOSIDES 8.6 MG TAB PO SCH (20:18)
[2017-08-05] MEDS: ATORVASTATIN 20 MG TAB PO SCH (20:19)
[2017-08-06] VITALS (30 sets, daily range): BP systolic 122–143; BP diastolic 59–67; PULSE 60–88; RESP 16–20; TEMP 97.4–99.2; O2SAT 90–98
[2017-08-06] MEDS: INSULIN ASPART SUPPLEMENTAL SCALE SQ SCH ×6 (02:00→21:00)
[2017-08-06] MEDS: oxyCODONE/ACETAMINOPHEN 5 MG/325 MG TAB PO PRN ×3 (03:33→12:41)
[2017-08-06] MEDS: ONDANSETRON HCL 4 MG/2 ML VIAL IV PUSH PRN ×2 (03:34→13:43)
[2017-08-06 05:06] LABS: AUTOMATED NEUTROPHIL # 8.3 TH/MM3 (1.8-7.7); BASOPHIL % 0.1 % (0.0-2.0); EOSINOPHIL % 0.4 % (0.0-4.0); HEMATOCRIT 34.7 % (39.0-51.0); HEMOGLOBIN 12.2 GM/DL (13.0-17.0); LYMPH % 10.1 % (9.0-44.0); LYMPHOCYTE # 1.1 TH/MM3 (1.0-4.8); MEAN CORPUSCULAR HEMOGLOBIN 31.3 PG (27.0-34.0); MEAN CORPUSCULAR HGB CONC 35.2 % (32.0-36.0); MEAN PLATELET VOLUME 8.2 FL (7.0-11.0); MONO % 10.1 % (0.0-8.0); MONOCYTE # 1.1 TH/MM3 (0-0.9); NEUT % 79.3 % (16.0-70.0); PLATELET COUNT 105 TH/MM3 (150-450); RED CELL DISTRIBUTION WIDTH 14.2 % (11.6-17.2); WHITE BLOOD COUNT 10.5 TH/MM3 (4.0-11.0)
[2017-08-06 05:32] LABS: BICARBONATE 25.6 MEQ/L (21.0-32.0); CALCIUM 8.3 MG/DL (8.5-10.1); CREATININE 1.08 MG/DL (0.60-1.30); MAGNESIUM 2.2 MG/DL (1.5-2.5)
[2017-08-06] MEDS: PANTOPRAZOLE SOD 40 MG DELAYED RELEASE TAB PO SCH (06:00)
[2017-08-06] MEDS: RESP: ALBUTEROL 2.5 MG/IPRATROPIUM 0.5 MG NEB (SCH) NEB ×3 (08:22→20:02)
[2017-08-06] MEDS: MAGNESIUM HYDROXIDE SUSP 30 ML CUP PO SCH (08:44)
[2017-08-06] MEDS: POLYETHYLENE GLYCOL 17 GM PKG PO SCH (08:44)
[2017-08-06] MEDS: AMIODARONE 200 MG TAB PO SCH ×2 (08:46→21:34)
[2017-08-06] MEDS: DOCUSATE SODIUM 100 MG CAP PO SCH ×2 (08:46→21:35)
[2017-08-06] MEDS: MULTIVITAMINS/MINERALS THERAPEUTIC TAB PO SCH (08:46)
[2017-08-06] MEDS: amLODIPine BESYLATE 5 MG TAB PO SCH (08:46)
[2017-08-06] MEDS: ASPIRIN 81 MG CHEW TAB PO SCH (08:46)
[2017-08-06] MEDS: METOPROLOL TARTRATE 25 MG TAB PO SCH ×2 (08:46→21:34)
[2017-08-06] MEDS: SODIUM CHLORIDE 0.9% FLUSH 10 ML FLUSH IV FLUSH SCH ×2 (08:51→21:34)
[2017-08-06] MEDS: FUROSEMIDE 40 MG/4 ML VIAL IV PUSH SCH (09:21)
[2017-08-06] MEDS: POTASSIUM CHLORIDE 20 MEQ CONTROLLED RELEASE TAB PO SCH (09:22)
--- NOTE | 2017-08-06 10:37 | PD.CAR.PN ---
CVT Progress Note Subjective/Hospital Course: A 66-year-old male who presented to the emergency room due to chest pain, shortness of breath. He has had this off and on for the past month or two. He sees Dr. Morgan and was supposed to see him in a week or so, said the pain was getting worse, 4/10, squeezing in nature. He decided to come into the emergency room. His troponin was 0.15. Because of this, he underwent cardiac catheterization by Dr. Briceno, which showed left main disease of 70%, proximal LAD 90%, the mid-distal LAD 100%. The diagonal was 50%. The circ was 60%, the OM 50%, the RCA 30%. Echocardiogram was done which showed an ejection fraction of 50%, mildly dilated left ventricle. Trace tricuspid regurgitation, trace mitral valve regurgitation. We were consulted to evaluate for coronary artery bypass grafting. PAST MEDICAL HISTORY: Hypertension, hyperlipidemia, history of DVT, pulmonary embolism in the past, has been on Eliquis which has since been stopped. He has history of non-Hodgkin's lymphoma, status post chemotherapy. His last dose was about 5-6 years ago. He is followed by Dr. Ajay Dubon in [place]. PAST SURGICAL HISTORY: Include [place] IVC filter, bilateral cataract surgery , melanoma excision on the nose. 08/03/17 Denies chest pain 4/2 surgery : CABG x 2, HART to LAD - good, SVG to OM1 - good, L EVH extubated after surgery crystalloid 3000cc, 750cc cell saver, 1500cc EBL 4/3 doing well up in chair, on nasal cannula BP elevated , resume BB, diuresis transfer to stepdown unit pulm toileting 4/ chest tube dc without difficultly wean 02 continue current meds ambulate Objective: GENERAL: A&O x 3 SKIN: Warm and dry.prevena dressing to chest HEAD: Normocephalic. EYES: No scleral icterus. No injection or drainage. NECK: Supple, trachea midline. No JVD or lymphadenopathy. CARDIOVASCULAR: Regular rate and rhythm without murmurs, gallops, or rubs. RESPIRATORY: Breath sounds equal bilaterally. No accessory muscle use. chest tube dc GASTROINTESTINAL: Abdomen soft, non-tender, nondistended. MUSCULOSKELETAL: No cyanosis, or edema. BACK: Nontender without obvious deformity. No CVA tenderness. Vital Signs Date Time Temp Pulse Resp B/P (MAP) Pulse Ox O2 Delivery O2 Flow Rate FiO2 08/06/17 10:00 82 08/06/17 09:00 88 08/06/17 08:00 76 08/06/17 07:20 93 Nasal Cannula 2.00 08/06/17 07:20 98.4 71 16 130/62 (84) 93 08/06/17 07:00 72 08/06/17 06:37 74 08/06/17 05:45 73 08/06/17 04:27 72 08/06/17 03:30 92 Nasal Cannula 2.00 08/06/17 03:30 99.1 79 20 143/67 (92) 92 08/06/17 03:30 73 08/06/17 02:34 75 08/06/17 01:08 61 08/06/17 00:04 72 08/05/17 23:51 74 08/05/17 23:51 100.3 82 19 155/73 (100) 93 08/05/17 23:51 93 Nasal Cannula 2.00 08/05/17 22:57 76 08/05/17 21:00 79 08/05/17 19:36 97 Nasal Cannula 3.00 08/05/17 19:20 98.4 76 20 149/70 (96) 93 08/05/17 19:20 93 Nasal Cannula 2.00 08/05/17 19:20 76 08/05/17 16:00 98.6 76 18 155/70 (98) 94 08/05/17 15:00 99.1 80 16 146/73 (97) 92 08/05/17 15:00 92 Nasal Cannula 2.00 08/05/17 15:00 80 08/05/17 13:00 92 Nasal Cannula 2.00 08/05/17 11:00 97.9 60 16 138/78 (98) 94 Arterial Line 08/05/17 11:00 60 08/05/17 11:00 94 Nasal Cannula 3.00 Labs: Laboratory Tests Test 08/06/17 04:09 White Blood Count 10.5 TH/MM3 (4.0-11.0) Red Blood Count 3.90 MIL/MM3 (4.50-5.90) Hemoglobin 12.2 GM/DL (13.0-17.0) Hematocrit 34.7 % (39.0-51.0) Mean Corpuscular Volume 89.0 FL (80.0-100.0) Mean Corpuscular Hemoglobin 31.3 PG (27.0-34.0) Mean Corpuscular Hemoglobin Concent 35.2 % (32.0-36.0) Red Cell Distribution Width 14.2 % (11.6-17.2) Platelet Count 105 TH/MM3 (150-450) Mean Platelet Volume 8.2 FL (7.0-11.0) Neutrophils (%) (Auto) 79.3 % (16.0-70.0) Lymphocytes (%) (Auto) 10.1 % (9.0-44.0) Monocytes (%) (Auto) 10.1 % (0.0-8.0) Eosinophils (%) (Auto) 0.4 % (0.0-4.0) Basophils (%) (Auto) 0.1 % (0.0-2.0) Neutrophils # (Auto) 8.3 TH/MM3 (1.8-7.7) Lymphocytes # (Auto) 1.1 TH/MM3 (1.0-4.8) Monocytes # (Auto) 1.1 TH/MM3 (0-0.9) Eosinophils # (Auto) 0.0 TH/MM3 (0-0.4) Basophils # (Auto) 0.0 TH/MM3 (0-0.2) CBC Comment DIFF FINAL Differential Comment Blood Urea Nitrogen 22 MG/DL (7-18) Creatinine 1.08 MG/DL (0.60-1.30) Random Glucose 102 MG/DL (74-106) Calcium Level 8.3 MG/DL (8.5-10.1) Magnesium Level 2.2 MG/DL (1.5-2.5) Sodium Level 140 MEQ/L (136-145) Potassium Level 4.4 MEQ/L (3.5-5.1) Chloride Level 106 MEQ/L (98-107) Carbon Dioxide Level 25.6 MEQ/L (21.0-32.0) Anion Gap 8 MEQ/L (5-15) Estimat Glomerular Filtration Rate 68 ML/MIN (>89) Result Diagram: 08/06/1740808/06/17408 (1) Non-STEMI (non-ST elevated myocardial infarction) (2) Chest pain (3) S/P CABG x 2 Plan: ASA, statin , BB, amiodarone OOB, ambulate wean 02 gentle diuresis chest tube dc CM to eval for HHC at discharge (4) SOB (shortness of breath) (5) Multi-vessel coronary artery stenosis (6) Hx of non-Hodgkin's lymphoma (7) Hx of deep venous thrombosis Plan: resume eliquis when chest tube out Shu Menjivar Aug 06, 2017 10:37
--- NOTE | 2017-08-06 14:32 | PD.CARD.PN ---
Subjective Subjective Remarks Up to the chair Doing well Objective Medications Current Medications Medications (Trade) Dose Ordered Sig/Rea Route Start Time Stop Time Status Last Admin (Tylenol) 650 mg Q6H PRN PO 07/30/17 12:30 (Percocet 5-325 Mg) 1 tab Q4H PRN PO 07/31/17 15:00 08/06/17 12:41 (Pill Splitter) 1 ea UNSCH PRN OTHER 07/31/17 17:15 (Lipitor) 40 mg HS PO 08/01/17 21:00 08/05/17 20:19 (Norvasc) 5 mg DAILY PO 08/03/17 09:15 08/06/17 08:46 (NS Flush) 2 ml BID IV FLUSH 08/04/17 21:00 08/06/17 08:51 (NS Flush) 2 ml UNSCH PRN IV FLUSH 08/04/17 11:45 (Aspirin Chew) 81 mg DAILY PO 08/05/17 09:00 08/06/17 08:46 (Protonix) 40 mg DAILY@06 PO 08/05/17 06:00 08/06/17 06:00 (Cordarone) 200 mg Q12HR PO 08/04/17 21:00 08/06/17 08:46 (Zofran Inj) 4 mg Q6H PRN IV PUSH 08/04/17 11:45 08/06/17 13:43 (Apresoline Inj) 10 mg Q4H PRN IV PUSH 08/04/17 11:45 08/05/17 13:15 (Duoneb Neb) 1 ampule Q2HR NEB PRN NEB 08/04/17 11:45 (Duoneb Neb) 1 ampule Q6HR WHILE AWAKE NEB NEB 08/05/17 14:00 08/07/17 13:59 08/06/17 13:42 (Colace) 100 mg BID PO 08/05/17 09:30 08/06/17 08:46 (Theragran M Tab) 1 tab DAILY PO 08/06/17 09:00 08/06/17 08:46 (Milk Of Magnesia Liq) 30 ml DAILY PO 08/06/17 09:00 08/06/17 08:44 (Dulcolax Supp) 10 mg UNSCH PRN RECTAL 4/3/18 09:30 (Miralax) 17 gm DAILY PO 08/06/17 09:00 08/06/17 08:44 (Senokot) 8.6 mg HS PO 08/05/17 21:00 08/05/17 20:18 (Fleets Enema (Adult)) 118 ml UNSCH PRN RECTAL 08/05/17 09:30 (Lopressor) 25 mg BID PO 08/05/17 09:30 08/06/17 08:46 (D50w (Vial) Inj) 50 ml UNSCH PRN IV PUSH 08/05/17 09:30 (Glucagon Inj) 1 mg UNSCH PRN OTHER 08/05/17 09:30 (Toradol Inj) 15 mg Q6H PRN IV PUSH 08/05/17 09:45 08/07/17 09:44 08/05/17 21:55 (Lasix Inj) 40 mg DAILY IV PUSH 08/06/17 09:00 08/06/17 09:21 (KCl) 20 meq DAILY PO 08/06/17 09:00 08/06/17 09:22 (Eliquis) 2.5 mg BID PO 08/06/17 21:00 UNV (NovoLOG SUPPLEMENTAL SCALE) 1 ACHS SQ 08/06/17 12:00 Vital Signs / I&O Vital Signs Date Time Temp Pulse Resp B/P (MAP) Pulse Ox O2 Delivery O2 Flow Rate FiO2 08/06/17 14:00 66 08/06/17 13:00 72 08/06/17 12:00 66 08/06/17 11:25 97.4 77 16 123/61 (81) 92 08/06/17 11:25 92 Room Air 08/06/17 11:00 77 08/06/17 10:49 92 Room Air 08/06/17 10:49 Nasal Cannula 08/06/17 10:00 82 08/06/17 09:00 88 08/06/17 08:20 95 Nasal Cannula 2.00 08/06/17 08:00 76 08/06/17 07:20 93 Nasal Cannula 2.00 08/06/17 07:20 98.4 71 16 130/62 (84) 93 08/06/17 07:00 72 08/06/17 06:37 74 08/06/17 05:45 73 08/06/17 04:27 72 08/06/17 03:30 92 Nasal Cannula 2.00 08/06/17 03:30 99.1 79 20 143/67 (92) 92 08/06/17 03:30 73 08/06/17 02:34 75 08/06/17 01:08 61 08/06/17 00:04 72 08/05/17 23:51 74 08/05/17 23:51 100.3 82 19 155/73 (100) 93 08/05/17 23:51 93 Nasal Cannula 2.00 08/05/17 22:57 76 08/05/17 21:00 79 08/05/17 19:36 97 Nasal Cannula 3.00 08/05/17 19:20 98.4 76 20 149/70 (96) 93 08/05/17 19:20 93 Nasal Cannula 2.00 08/05/17 19:20 76 08/05/17 16:00 98.6 76 18 155/70 (98) 94 08/05/17 15:00 99.1 80 16 146/73 (97) 92 08/05/17 15:00 92 Nasal Cannula 2.00 08/05/17 15:00 80 I/O 08/05/17 08/05/17 08/05/17 08/06/17 08/06/17 08/06/17 07:00 15:00 23:00 07:00 15:00 23:00 Intake Total 960 ml 100 ml 580 ml 580 ml Output Total 910 ml 1775 ml 1570 ml Balance 50 ml 100 ml -1195 ml -990 ml Intake Oral 660 ml 480 ml 480 ml IV Total 300 ml 100 ml 100 ml 100 ml Output Urine Total 710 ml 1625 ml 1450 ml Chest Tube Drainage Total 200 ml 150 ml 120 ml # Bowel Movements 0 Physical Exam GENERAL: NAD, AAOx3 SKIN: Warm and dry. HEAD: Atraumatic. Normocephalic. EYES: Pupils equal and round. No scleral icterus. No injection or drainage. ENT: No nasal bleeding or discharge. Mucous membranes pink and moist. NECK: Trachea midline. No JVD. CARDIOVASCULAR: Regular rate and rhythm. Sternotomy covered RESPIRATORY: No accessory muscle use. Clear to auscultation. Breath sounds equal bilaterally. GASTROINTESTINAL: Abdomen soft, non-tender, nondistended. Hepatic and splenic margins not palpable. MUSCULOSKELETAL: Extremities without clubbing, cyanosis, or edema. No obvious deformities. Right radial no hematoma, neurovascularly intact distally NEUROLOGICAL: Awake and alert. No obvious cranial nerve deficits. Motor grossly within normal limits. Five out of 5 muscle strength in the arms and legs. Normal speech. PSYCHIATRIC: Appropriate mood and affect; insight and judgment normal. Laboratory Laboratory Tests Test 08/06/17 04:09 White Blood Count 10.5 TH/MM3 Red Blood Count 3.90 MIL/MM3 Hemoglobin 12.2 GM/DL Hematocrit 34.7 % Mean Corpuscular Volume 89.0 FL Mean Corpuscular Hemoglobin 31.3 PG Mean Corpuscular Hemoglobin Concent 35.2 % Red Cell Distribution Width 14.2 % Platelet Count 105 TH/MM3 Mean Platelet Volume 8.2 FL Neutrophils (%) (Auto) 79.3 % Lymphocytes (%) (Auto) 10.1 % Monocytes (%) (Auto) 10.1 % Eosinophils (%) (Auto) 0.4 % Basophils (%) (Auto) 0.1 % Neutrophils # (Auto) 8.3 TH/MM3 Lymphocytes # (Auto) 1.1 TH/MM3 Monocytes # (Auto) 1.1 TH/MM3 Eosinophils # (Auto) 0.0 TH/MM3 Basophils # (Auto) 0.0 TH/MM3 CBC Comment DIFF FINAL Differential Comment Blood Urea Nitrogen 22 MG/DL Creatinine 1.08 MG/DL Random Glucose 102 MG/DL Calcium Level 8.3 MG/DL Magnesium Level 2.2 MG/DL Sodium Level 140 MEQ/L Potassium Level 4.4 MEQ/L Chloride Level 106 MEQ/L Carbon Dioxide Level 25.6 MEQ/L Anion Gap 8 MEQ/L Estimat Glomerular Filtration Rate 68 ML/MIN Assessment and Plan Problem List: (1) Non-STEMI (non-ST elevated myocardial infarction) ICD Codes: I21.4 - Non-ST elevation (NSTEMI) myocardial infarction Status: Acute (2) Chest pain ICD Codes: R07.9 - Chest pain, unspecified (3) S/P CABG x 2 ICD Codes: Z95.1 - Presence of aortocoronary bypass graft (4) SOB (shortness of breath) ICD Codes: R06.02 - Shortness of breath (5) Multi-vessel coronary artery stenosis ICD Codes: I25.10 - Atherosclerotic heart disease of [place] coronary artery without angina pectoris (6) Hx of non-Hodgkin's lymphoma ICD Codes: Z85.72 - Personal history of non-Hodgkin lymphomas (7) Hx of deep venous thrombosis ICD Codes: Z86.718 - Personal history of other venous thrombosis and embolism Assessment and Plan 1) NSTEMI/MVCAD s/p CABGx2 POD #2 HART to LAD SVG to OM1 2) EF 50-55% 3) HTN 4) Discharge planning Patrick Briceno DO Aug 06, 2017 14:32
[2017-08-06] MEDS: SENNOSIDES 8.6 MG TAB PO SCH (21:35)
[2017-08-06] MEDS: ATORVASTATIN 20 MG TAB PO SCH (21:35)
[2017-08-06] MEDS: APIXABAN 2.5 MG TABLET PO SCH (21:35)
[2017-08-07] VITALS (20 sets, daily range): BP systolic 109–125; BP diastolic 60–77; PULSE 54–92; RESP 20; TEMP 97.9–98.9; O2SAT 94–96
[2017-08-07 05:18] LABS: BICARBONATE 28.1 MEQ/L (21.0-32.0); CALCIUM 8.6 MG/DL (8.5-10.1); CREATININE 0.91 MG/DL (0.60-1.30); MAGNESIUM 2.4 MG/DL (1.5-2.5)
[2017-08-07] MEDS: PANTOPRAZOLE SOD 40 MG DELAYED RELEASE TAB PO SCH (06:21)
--- NOTE | 2017-08-07 06:34 | RADRPT ---
EXAM DATE/TIME: 08/07/2017 04:43 [facility] COMPARISON: CHEST SINGLE AP, August 05, 2017, 2:42. INDICATIONS : Shortness of breath, possible pulmonary disease. MEDICAL HISTORY : Hypertension. Hypercholesterolemia. Non Hodgekins lymphoma SURGICAL HISTORY : CABG. IVC filter placement. port placement ENCOUNTER: Subsequent ACUITY: 1 week PAIN SCORE: 0/10 LOCATION: Bilateral chest FINDINGS: Left subclavian central line is stable. There has been interval removal of the thoracostomy tube. The re is no evidence of pneumothorax. Mild basilar parenchymal opacities persist unchanged. Cardiac cont ours are grossly stable. CONCLUSION: The thoracostomy tube removal and midline chest removal without complication. Abdoul Hill MD on August 07, 2017 at 6:31 Board Certified Radiologist. This report was verified electronically.
[2017-08-07] MEDS: RESP: ALBUTEROL 2.5 MG/IPRATROPIUM 0.5 MG NEB (SCH) NEB (07:35)
[2017-08-07] MEDS: INSULIN ASPART SUPPLEMENTAL SCALE SQ SCH ×2 (07:56→11:43)
[2017-08-07] MEDS: DOCUSATE SODIUM 100 MG CAP PO SCH (08:41)
[2017-08-07] MEDS: AMIODARONE 200 MG TAB PO SCH (08:41)
[2017-08-07] MEDS: POLYETHYLENE GLYCOL 17 GM PKG PO SCH (08:41)
[2017-08-07] MEDS: MAGNESIUM HYDROXIDE SUSP 30 ML CUP PO SCH (08:41)
[2017-08-07] MEDS: METOPROLOL TARTRATE 25 MG TAB PO SCH (08:42)
[2017-08-07] MEDS: POTASSIUM CHLORIDE 20 MEQ CONTROLLED RELEASE TAB PO SCH (08:42)
[2017-08-07] MEDS: MULTIVITAMINS/MINERALS THERAPEUTIC TAB PO SCH (08:42)
[2017-08-07] MEDS: APIXABAN 2.5 MG TABLET PO SCH (08:42)
[2017-08-07] MEDS: amLODIPine BESYLATE 5 MG TAB PO SCH (08:42)
[2017-08-07] MEDS: ASPIRIN 81 MG CHEW TAB PO SCH (08:42)
[2017-08-07] MEDS: FUROSEMIDE 40 MG/4 ML VIAL IV PUSH SCH (08:43)
[2017-08-07] MEDS: SODIUM CHLORIDE 0.9% FLUSH 10 ML FLUSH IV FLUSH SCH (09:00)
[2017-08-07] MEDS: oxyCODONE/ACETAMINOPHEN 5 MG/325 MG TAB PO PRN (09:51)
[2017-08-07] MEDS: ONDANSETRON HCL 4 MG/2 ML VIAL IV PUSH PRN (09:51)
--- NOTE | 2017-08-07 12:32 | PD.CARD.PN ---
Subjective Subjective Remarks Up to the chair Doing well Objective Medications Current Medications Medications (Trade) Dose Ordered Sig/Rea Route Start Time Stop Time Status Last Admin (Tylenol) 650 mg Q6H PRN PO 07/30/17 12:30 (Percocet 5-325 Mg) 1 tab Q4H PRN PO 07/31/17 15:00 08/07/17 09:51 (Pill Splitter) 1 ea UNSCH PRN OTHER 07/31/17 17:15 (Lipitor) 40 mg HS PO 08/01/17 21:00 08/06/17 21:35 (Norvasc) 5 mg DAILY PO 08/03/17 09:15 08/07/17 08:42 (NS Flush) 2 ml BID IV FLUSH 08/04/17 21:00 08/07/17 09:00 (NS Flush) 2 ml UNSCH PRN IV FLUSH 08/04/17 11:45 (Aspirin Chew) 81 mg DAILY PO 08/05/17 09:00 08/07/17 08:42 (Protonix) 40 mg DAILY@06 PO 08/05/17 06:00 08/07/17 06:21 (Cordarone) 200 mg Q12HR PO 08/04/17 21:00 08/07/17 08:41 (Zofran Inj) 4 mg Q6H PRN IV PUSH 08/04/17 11:45 08/07/17 09:51 (Apresoline Inj) 10 mg Q4H PRN IV PUSH 08/04/17 11:45 08/05/17 13:15 (Duoneb Neb) 1 ampule Q2HR NEB PRN NEB 08/04/17 11:45 (Duoneb Neb) 1 ampule Q6HR WHILE AWAKE NEB NEB 08/05/17 14:00 08/07/17 13:59 08/07/17 07:35 (Colace) 100 mg BID PO 08/05/17 09:30 08/07/17 08:41 (Theragran M Tab) 1 tab DAILY PO 08/06/17 09:00 08/07/17 08:42 (Milk Of Magnesia Liq) 30 ml DAILY PO 08/06/17 09:00 08/07/17 08:41 (Dulcolax Supp) 10 mg UNSCH PRN RECTAL 4/3/18 09:30 (Miralax) 17 gm DAILY PO 08/06/17 09:00 08/07/17 08:41 (Senokot) 8.6 mg HS PO 08/05/17 21:00 08/06/17 21:35 (Fleets Enema (Adult)) 118 ml UNSCH PRN RECTAL 08/05/17 09:30 (Lopressor) 25 mg BID PO 08/05/17 09:30 08/07/17 08:42 (D50w (Vial) Inj) 50 ml UNSCH PRN IV PUSH 08/05/17 09:30 (Glucagon Inj) 1 mg UNSCH PRN OTHER 08/05/17 09:30 (Lasix Inj) 40 mg DAILY IV PUSH 08/06/17 09:00 08/07/17 08:43 (KCl) 20 meq DAILY PO 08/06/17 09:00 08/07/17 08:42 (Eliquis) 2.5 mg BID PO 08/06/17 21:00 08/07/17 08:42 (NovoLOG SUPPLEMENTAL SCALE) 1 ACHS SQ 08/06/17 12:00 08/06/17 21:00 Vital Signs / I&O Vital Signs Date Time Temp Pulse Resp B/P (MAP) Pulse Ox O2 Delivery O2 Flow Rate FiO2 08/07/17 11:00 67 08/07/17 11:00 94 Room Air 08/07/17 11:00 98.2 88 20 109/65 (80) 94 08/07/17 10:00 80 08/07/17 09:00 92 08/07/17 08:00 88 08/07/17 07:45 94 Room Air 08/07/17 07:45 70 08/07/17 07:45 98.4 77 20 125/77 (93) 94 08/07/17 07:38 96 08/07/17 06:01 60 08/07/17 05:10 64 08/07/17 04:59 95 Nasal Cannula 2.00 Bi-Pap 08/07/17 04:58 98.4 66 123/65 (84) 95 08/07/17 04:00 65 08/07/17 03:00 60 08/07/17 02:00 60 08/07/17 01:09 96 Nasal Cannula 2.00 Bi-Pap 08/07/17 01:08 98.9 66 118/62 (80) 96 08/07/17 01:00 56 08/07/17 00:00 54 08/06/17 23:00 72 08/06/17 22:42 90 Bi-Pap 08/06/17 22:40 99.2 77 129/61 (83) 90 08/06/17 22:00 82 08/06/17 21:00 72 08/06/17 20:02 96 Nasal Cannula 2.00 08/06/17 20:00 76 08/06/17 19:00 62 08/06/17 18:00 64 08/06/17 17:00 72 08/06/17 16:00 82 08/06/17 15:34 98.1 60 16 122/59 (80) 98 08/06/17 15:34 92 Room Air 08/06/17 15:00 67 08/06/17 14:00 66 08/06/17 13:00 72 I/O 08/06/17 08/06/17 08/06/17 08/07/17 08/07/17 08/07/17 07:00 15:00 23:00 07:00 15:00 23:00 Intake Total 580 ml 1200 ml 480 ml Output Total 1570 ml 1620 ml 1625 ml Balance -990 ml -420 ml -1145 ml Intake Oral 480 ml 1200 ml 480 ml IV Total 100 ml Output Urine Total 1450 ml 1620 ml 1625 ml Chest Tube Drainage Total 120 ml # Bowel Movements 0 Physical Exam GENERAL: NAD, AAOx3 SKIN: Warm and dry. HEAD: Atraumatic. Normocephalic. EYES: Pupils equal and round. No scleral icterus. No injection or drainage. ENT: No nasal bleeding or discharge. Mucous membranes pink and moist. NECK: Trachea midline. No JVD. CARDIOVASCULAR: Regular rate and rhythm. Sternotomy covered RESPIRATORY: No accessory muscle use. Clear to auscultation. Breath sounds equal bilaterally. GASTROINTESTINAL: Abdomen soft, non-tender, nondistended. Hepatic and splenic margins not palpable. MUSCULOSKELETAL: Extremities without clubbing, cyanosis, or edema. No obvious deformities. Right radial no hematoma, neurovascularly intact distally NEUROLOGICAL: Awake and alert. No obvious cranial nerve deficits. Motor grossly within normal limits. Five out of 5 muscle strength in the arms and legs. Normal speech. PSYCHIATRIC: Appropriate mood and affect; insight and judgment normal. Laboratory Laboratory Tests Test 08/07/17 04:05 Blood Urea Nitrogen 17 MG/DL Creatinine 0.91 MG/DL Random Glucose 102 MG/DL Calcium Level 8.6 MG/DL Magnesium Level 2.4 MG/DL Sodium Level 138 MEQ/L Potassium Level 4.3 MEQ/L Chloride Level 102 MEQ/L Carbon Dioxide Level 28.1 MEQ/L Anion Gap 8 MEQ/L Estimat Glomerular Filtration Rate 83 ML/MIN Imaging Last 24 hours Impressions Chest X-Ray 08/07/17 0600 Signed Impressions: Service Date/Time: August 04:43 - CONCLUSION: The thoracostomy tube removal and midline chest removal without complication. Abdoul Hill MD Assessment and Plan Problem List: (1) Non-STEMI (non-ST elevated myocardial infarction) ICD Codes: I21.4 - Non-ST elevation (NSTEMI) myocardial infarction Status: Acute (2) Chest pain ICD Codes: R07.9 - Chest pain, unspecified (3) S/P CABG x 2 ICD Codes: Z95.1 - Presence of aortocoronary bypass graft (4) SOB (shortness of breath) ICD Codes: R06.02 - Shortness of breath (5) Multi-vessel coronary artery stenosis ICD Codes: I25.10 - Atherosclerotic heart disease of [place] coronary artery without angina pectoris (6) Hx of non-Hodgkin's lymphoma ICD Codes: Z85.72 - Personal history of non-Hodgkin lymphomas (7) Hx of deep venous thrombosis ICD Codes: Z86.718 - Personal history of other venous thrombosis and embolism Assessment and Plan 1) NSTEMI/MVCAD s/p CABGx2 POD #3 HART to LAD SVG to OM1 2) EF 50-55% 3) HTN 4) Discharge planning 5) Can follow up with Dr. Morgan in the office Patrick Briceno DO Aug 07, 2017 12:32
[2017-08-07] MEDS ORDERED: AMIO200T PO (15:31)
[2017-08-07] MEDS ORDERED: ASPI81 PO (15:31)
[2017-08-07] MEDS ORDERED: THERM PO (15:31)
[2017-08-07] MEDS ORDERED: METO25TA3 PO (15:31)
[2017-08-07] MEDS ORDERED: DOCU1CAP39 PO (15:31)
[2017-08-07] MEDS ORDERED: AMLO5 PO (15:31)
[2017-08-07] MEDS ORDERED: TRAM50TA PO (15:31)
--- NOTE | 2017-08-07 15:40 | HHI.DS ---
Discharge Summary Admission Date Jul 30, 2017 at 20:18 Admitting Diagnosis non-STEMI (1) Non-STEMI (non-ST elevated myocardial infarction) ICD Codes: I21.4 - Non-ST elevation (NSTEMI) myocardial infarction Status: Acute (2) Chest pain Diagnosis: Principal ICD Codes: R07.9 - Chest pain, unspecified (3) Multi-vessel coronary artery stenosis Diagnosis: Principal ICD Codes: I25.10 - Atherosclerotic heart disease of [place] coronary artery without angina pectoris (4) Hx of non-Hodgkin's lymphoma Diagnosis: Principal ICD Codes: Z85.72 - Personal history of non-Hodgkin lymphomas (5) Hx of deep venous thrombosis ICD Codes: Z86.718 - Personal history of other venous thrombosis and embolism (6) S/P CABG x 2 Diagnosis: Secondary ICD Codes: Z95.1 - Presence of aortocoronary bypass graft Procedures CABG x 2 08/04 Arana to LAD - good SVG to OM1 - good EVH Brief History A 66-year-old male who presented to the emergency room due to chest pain, shortness of breath. He has had this off and on for the past month or two. He sees Dr. Morgan and was supposed to see him in a week or so, said the pain was getting worse, 4/10, squeezing in nature. He decided to come into the emergency room. His troponin was 0.15. Because of this, he underwent cardiac catheterization by Dr. Briceno, which showed left main disease of 70%, proximal LAD 90%, the mid-distal LAD 100%. The diagonal was 50%. The circ was 60%, the OM 50%, the RCA 30%. Echocardiogram was done which showed an ejection fraction of 50%, mildly dilated left ventricle. Trace tricuspid regurgitation, trace mitral valve regurgitation. We were consulted to evaluate for coronary artery bypass grafting. PAST MEDICAL HISTORY: Hypertension, hyperlipidemia, history of DVT, pulmonary embolism in the past, has been on Eliquis which has since been stopped. He has history of non-Hodgkin's lymphoma, status post chemotherapy. His last dose was about 5-6 years ago. He is followed by Dr. Ajay Dubon in [place]. PAST SURGICAL HISTORY: Include [place] IVC filter, bilateral cataract surgery , melanoma excision on the nose. CBC/BMP: 08/06/17 0409 08/07/17 0405 Significant Findings Laboratory Tests Test 08/05/17 04:00 08/06/17 04:09 08/07/17 04:05 White Blood Count 12.5 TH/MM3 (4.0-11.0) Red Blood Count 4.16 MIL/MM3 (4.50-5.90) 3.90 MIL/MM3 (4.50-5.90) Hemoglobin 12.6 GM/DL (13.0-17.0) 12.2 GM/DL (13.0-17.0) Hematocrit 36.9 % (39.0-51.0) 34.7 % (39.0-51.0) Platelet Count 114 TH/MM3 (150-450) 105 TH/MM3 (150-450) Random Glucose 113 MG/DL (74-106) Calcium Level 8.1 MG/DL (8.5-10.1) 8.3 MG/DL (8.5-10.1) Chloride Level 109 MEQ/L (98-107) Neutrophils (%) (Auto) 79.3 % (16.0-70.0) Monocytes (%) (Auto) 10.1 % (0.0-8.0) Neutrophils # (Auto) 8.3 TH/MM3 (1.8-7.7) Monocytes # (Auto) 1.1 TH/MM3 (0-0.9) Blood Urea Nitrogen 22 MG/DL (7-18) Estimat Glomerular Filtration Rate 68 ML/MIN (>89) 83 ML/MIN (>89) Imaging Last Impressions Chest X-Ray 08/07/17 0600 Signed Impressions: Service Date/Time: August 04:43 - CONCLUSION: The thoracostomy tube removal and midline chest removal without complication. Abdoul Hill MD Lower Extremity Ultrasound 07/31/17 0000 Signed Impressions: Service Date/Time: July 20:49 - CONCLUSION: The greater saphenous veins are patent bilaterally and measured above. Abdoul Hester MD Carotid Artery Ultrasound 07/31/17 0000 Signed Impressions: Service Date/Time: July 21:09 - CONCLUSION: Mild calcified plaque at the carotid bulb regions without significant stenosis. Abdoul Hester MD PE at Discharge GENERAL: A&O x 3 SKIN: Warm and dry. prevena dressing to chest , incision intact to leg HEAD: Normocephalic. EYES: No scleral icterus. No injection or drainage. NECK: Supple, trachea midline. No JVD or lymphadenopathy. CARDIOVASCULAR: Regular rate and rhythm without murmurs, gallops, or rubs. RESPIRATORY: Breath sounds equal bilaterally. No accessory muscle use. GASTROINTESTINAL: Abdomen soft, non-tender, nondistended. MUSCULOSKELETAL: No cyanosis, or edema. BACK: Nontender without obvious deformity. No CVA tenderness. Hospital Course 08/03/17 Denies chest pain 08/04 surgery : CABG x 2, ARANA to LAD - good, SVG to OM1 - good, L EVH extubated after surgery crystalloid 3000cc, 750cc cell saver, 1500cc EBL 08/05 doing well up in chair, on nasal cannula BP elevated , resume BB, diuresis transfer to stepdown unit pulm toileting 08/06 chest tube dc without difficultly wean 02 continue current meds ambulate / doing well , + BM stable for dc today continue eliquis for hx of DVT on room air Pt Condition on Discharge: Good Discharge Disposition: Disch w/ Home Health Serv Discharge Instructions DIET: Follow Instructions for: Heart Healthy Diet Activities you can perform: Full Weight Bearing, Shower Only-No Bath Activities to avoid: Driving Additional Activity Instructio: no lifting > 8 lbs or gallon of milk Follow up Referrals: Cardiology - 4 Weeks with Royal Morgan MD PCP Follow-up - 2 Weeks with Yunior Abdul MD Surgical - 2 Weeks with Shu Menjivar New Orders: BASIC METABOLIC PROF - 2 Weeks CBC NO DIFF - 2 Weeks X-RAY CHEST PA & LAT - 2 Weeks New Medications: Tramadol (Tramadol) 50 Mg Tab 50 MG PO Q6H PRN for PAIN, #40 TAB 0 Refills Amiodarone (Amiodarone) 200 Mg Tab 200 MG PO Q12HR for heart rhythm, #28 TAB 0 Refills Amlodipine (Norvasc) 5 Mg Tab 5 MG PO DAILY for Blood Pressure Management, #30 TAB 2 Refills Aspirin (Tgt Aspirin) 81 Mg Chw 81 MG PO DAILY for Blood Clot Prevention, #30 EA 2 Refills Docusate Sodium (Dok) 100 Mg Cap 100 MG PO BID for Constipation, #60 CAP 0 Refills Metoprolol Tartrate (Metoprolol Tartrate) 25 Mg Tab 25 MG PO BID for Blood Pressure Management, #60 TAB 2 Refills Multiple Vitamins W/ Minerals (Thera M Plus) 1 Tab 1 TAB PO DAILY for multi vitamin, #30 TAB 2 Refills Continued Medications: Apixaban (Eliquis) 2.5 Mg Tab 2.5 MG PO BID for Blood Clot Prevention, TAB 0 Refills Coenzyme Q10 (Ubidecarenone) (Co Q-10) 100 Mg Cap 100 MG PO DAILY Glucosamine (Glucosamine) 1,000 Mg Cap 2000 MG PO DAILY for Herbal Supplements, CAP 0 Refills Rosuvastatin (Rosuvastatin) 10 Mg Tab 10 MG PO HS for Cholesterol Management, TAB 0 Refills Discontinued Medications: Losartan (Losartan) 25 Mg Tab 100 MG PO DAILY for Blood Pressure Management, #15 TAB 0 Refills Shu Menjivar Aug 07, 2017 15:40
== END 2017-08-07 16:30 | disposition home health service (06) | DRG 234 ==
LOC: NEPC 09:30 → NEDA 12:09 → NEPFCDU 14:37 → OBSVTOIN 20:18 → HCIS 07-31 17:21 → HCPC 07-31 20:16 → HCIS 08-04 08:34 → HCVI 08-04 11:07 → HCPC 08-05 16:15
PROVIDERS: ADMIT Thoracic Surgery (Cardiothoracic Vascular Surgery); ATTEND Thoracic Surgery (Cardiothoracic Vascular Surgery)
PROC: B2111ZZ Fluoroscopy of Multiple Coronary Arteries using Low Osmolar Contrast (ICD-10-PCS; 2017-07-31)
PROC: 4A023N7 Measurement of Cardiac Sampling and Pressure, Left Heart, Percutaneous Approach (ICD-10-PCS; principal; 2017-07-31 12:15)
PROC: 021009W Bypass Coronary Artery, One Artery from Aorta with Autologous Venous Tissue, Open Approach (ICD-10-PCS; 2017-08-04)
PROC: 06BQ4ZZ Excision of Left Saphenous Vein, Percutaneous Endoscopic Approach (ICD-10-PCS; 2017-08-04)
PROC: 5A1221Z Performance of Cardiac Output, Continuous (ICD-10-PCS; 2017-08-04)
PROC: 02100Z9 Bypass Coronary Artery, One Artery from Left Internal Mammary, Open Approach (ICD-10-PCS; 2017-08-04 07:12)
DX: I21.4 Non-ST elevation (NSTEMI) myocardial infarction (principal); I10 Essential (primary) hypertension; R00.1 Bradycardia, unspecified; I25.10 Atherosclerotic heart disease of native coronary artery without angina pectoris; E78.5 Hyperlipidemia, unspecified; Z86.718 Personal history of other venous thrombosis and embolism; Z86.711 Personal history of pulmonary embolism; Z79.01 Long term (current) use of anticoagulants; Z92.21 Personal history of antineoplastic chemotherapy; Z85.820 Personal history of malignant melanoma of skin; Z87.891 Personal history of nicotine dependence; Z82.49 Family history of ischemic heart disease and other diseases of the circulatory system; Z85.72 Personal history of non-Hodgkin lymphomas
CPT/HCPCS: 71045; 71046; 76937; 80048; 80053; 80061; 81001; 82550; 82552; 82948; 83036; 83735; 84484; 85025; 85027; 85379; 85610; 85730; 86850; 86900; 86901; 86920; 87641; 93005; 93306; 93458; 93880; 93970; 93998; 94002; 94010; 94150; 94640; 94664; 94667; 94668; 99152; C1769; C1893; J0131; J0360; J0690; J1644; J1815; J1817; J1885; J1940; J2150; J2250; J2370; J2405; J2440; J2720; J2930; J3010; J3370; J3475; J3480; J7120; P9045; P9047; Q9967

== ENCOUNTER → 2017-08-12 | Outpatient (CLI) | payer MEDICARE, OTHER ==
[~2017-08-12] MED LIST: AMIO200T PO; AMLO5 PO; APIX2.5T PO; ASPI81 PO; COEN1CAP PO; DOCU1CAP39 PO; GLUC100013 PO; METO25TA3 PO; ROSU1TAB6 PO; THERM PO; TRAM50TA PO
[2017-08-12 17:51] LABS: AUTOMATED NEUTROPHIL # 5.7 TH/MM3 (1.8-7.7); BASOPHIL # 0.1 TH/MM3 (0-0.2); BASOPHIL % 0.8 % (0.0-2.0); EOSINOPHIL # 0.2 TH/MM3 (0-0.4); EOSINOPHIL % 2.1 % (0.0-4.0); HEMATOCRIT 35.6 % (39.0-51.0); HEMOGLOBIN 12.3 GM/DL (13.0-17.0); LYMPH % 12.8 % (9.0-44.0); MEAN CELL VOLUME 87.1 FL (80.0-100.0); MEAN CORPUSCULAR HEMOGLOBIN 30.1 PG (27.0-34.0); MEAN CORPUSCULAR HGB CONC 34.5 % (32.0-36.0); MEAN PLATELET VOLUME 7.8 FL (7.0-11.0); MONO % 11.5 % (0.0-8.0); MONOCYTE # 0.9 TH/MM3 (0-0.9); NEUT % 72.8 % (16.0-70.0); PLATELET COUNT 243 TH/MM3 (150-450); RED BLOOD COUNT 4.09 MIL/MM3 (4.50-5.90); RED CELL DISTRIBUTION WIDTH 13.8 % (11.6-17.2); WHITE BLOOD COUNT 7.8 TH/MM3 (4.0-11.0)
[2017-08-12 18:05] LABS: BICARBONATE 27.3 MEQ/L (21.0-32.0); CALCIUM 8.8 MG/DL (8.5-10.1); CREATININE 1.01 MG/DL (0.60-1.30)
== END ==
LOC: PLAB 13:50
PROVIDERS: ATTEND Thoracic Surgery (Cardiothoracic Vascular Surgery)
DX: Z98.890 Other specified postprocedural states (principal)
CPT/HCPCS: 36415; 80048; 85025